=== PATIENT | female | born 1940 | race Caucasian/White ===

== ENCOUNTER → 2019-03-08 | Outpatient (CLI) | payer MEDICARE, OTHER ==
--- NOTE | 2019-03-08 14:09 | Diagnostic Imaging Report ---
INDICATION: Right knee pain. Three views of right knee show no fracture, dislocation or acute abnormalities. IMPRESSION: Negative right knee. Dictated by: Dictated on workstation # [id number]
== END ==
LOC: RAD FS 13:50
PROVIDERS: ATTEND Nurse Practitioner
DX: M17.11 Unilateral primary osteoarthritis, right knee (principal)
CPT/HCPCS: 73562

== ENCOUNTER 2019-08-23 06:50 | Day surgery (SDC) | payer MEDICARE, OTHER ==
[2019-08-23] VITALS (12 sets, daily range): BP systolic 0–170; BP diastolic 0–77
[~2019-08-23] VITALS: Ht 160 cm; Wt 63.7 kg
[~2019-08-23 06:50] MED LIST: BETA1TAB12 PO; VIT1CAPS46 PO
[2019-08-23] MEDS: LACTATED RINGERS 1,000 ML IV PRN ×2 (07:30→09:25)
[2019-08-23] MEDS ORDERED: BUP/EPI 0.25% 1:200,000 (MARCAINE) 10 ML VIAL IJ ONE (07:30)
[2019-08-23] MEDS ORDERED: ceFAZolin INJECTION 1,000 MG in WATER (STERILE) FOR INJECTION 10 ML IV ONE (08:00)
[2019-08-23] MEDS ORDERED: LIDOCAINE PF 2% 5 ML (XYLOCAINE) VIAL ONE (08:03)
[2019-08-23] MEDS ORDERED: ONDANSETRON 4 MG/2 ML (SDV) Z0FRAN ONE (08:03)
[2019-08-23] MEDS ORDERED: fentaNYL INJECTION 100 MCG/2 ML AMP ONE (08:03)
[2019-08-23] MEDS ORDERED: SEVOFLURANE (ULTANE) 15 ML INHAL SOLN ONE ×5 (08:03→10:06)
[2019-08-23] MEDS ORDERED: proPOfol 200 MG/20 ML (DIPRIVAN) VIAL IV ONE (08:03)
[2019-08-23] MEDS ORDERED: ROCURONIUM 10 MG/ML 5 ML SYRINGE IV ONE (08:03)
[2019-08-23] MEDS ORDERED: MIDAZOLAM 2 MG/2 ML (VERSED) VIAL IVP ONE (08:15)
--- NOTE | 2019-08-23 08:23 | Progress Note-Pre Operative ---
Pre-Operative Progress Note H&P Reviewed The H&P was reviewed, patient examined and no changes noted. Date Seen by Provider: Aug 23, 2019 Time Seen by Provider: 08:20 Date H&P Reviewed: Aug 23, 2019 Time H&P Reviewed: 08:15 Pre-Operative Diagnosis: Symptomatic Right inguinal hernia JASMIN VELOZ APRN Aug 23, 2019 08:23
[2019-08-23] MEDS ORDERED: HYDR-3812 PO (08:28)
[2019-08-23] MEDS ORDERED: ONDANSETRON 4 MG/2 ML (SDV) Z0FRAN IVP PRN ×2 (08:30→10:30)
[2019-08-23] MEDS ORDERED: morphine INJ 10 MG/ML 1ML (SYR OR VIAL) IVP PRN (08:30)
[2019-08-23] MEDS ORDERED: ACETAMINOPHEN 325 MG TABLET PO PRN (08:30)
[2019-08-23] MEDS ORDERED: HYDROcodone/APAP 5 MG/325 MG (LORTAB) TAB PO ONE (08:30)
--- NOTE | 2019-08-23 08:31 | Discharge Inst-Surgical ---
D/C Lap Instructions-KIDO Reconcile Patient Problems Problems Reviewed?: Yes New, Converted, or Re-Newed RX: RX on Chart Follow Up Appt in 2 weeks Activity as tolerated No driving for 24 hours No driving while on pain medications Incentive Spirometry use every 2 hours while awake Regular Diet Symptoms to Report: Fever over 101 degree F, Nausea/Vomiting Infection Signs and Symptoms to report: Increased redness, Foul odor of wound, Increased drainage Bathing instructions: May shower Operative Area Clean/Dry; Keep incision clean/dry If any problems/questions: Contact your physician or go to Emergency Room JASMIN VELOZ APRN Aug 23, 2019 08:31
[2019-08-23] MEDS ORDERED: GLYCOPYRROLATE 0.2 MG/ML (ROBINUL) 2 ML VIAL ONE (10:03)
[2019-08-23] MEDS ORDERED: NEOSTIGMINE 3 MG/3 ML VIAL ONE (10:03)
--- NOTE | 2019-08-23 10:09 | Progress Note-Post Operative ---
Post-Operative Progess Note Surgeon (s)/Marketing Assistant Manager (s) Surgeon VY FALCON MD Marketing Assistant Manager: vincent [employer] Pre-Operative Diagnosis Symptomatic Right inguinal hernia Post-Operative Diagnosis reducible right indirect ing hernia Procedure & Operative Findings Date of Procedure 08/23/19 Procedure Performed/Findings laparoscopic right inguinal hernia repair with mesh. Anesthesia Type get Estimated Blood Loss Estimated blood loss (mL): minimal Specimens/Packing Specimens Removed none VY FALCON MD Aug 23, 2019 10:09
[2019-08-23] MEDS ORDERED: MEPERIDINE (DEMEROL) INJ 50 MG/ML IVP ONE (10:30)
[2019-08-23] MEDS ORDERED: morphine INJ 10 MG/ML 1ML (SYR OR VIAL) IVP ONE (10:30)
[2019-08-23] MEDS ORDERED: PANTOPRAZOLE 40 MG (PROTONIX) VIAL ONE (12:55)
[2019-08-23] MEDS ORDERED: PANTOPRAZOLE 40 MG (PROTONIX) VIAL IV ONE (13:00)
--- NOTE | 2019-08-23 13:23 | Anesthesia-General Post-Op ---
General Patient Condition Mental Status/LOC: Same as Preop Cardiovascular: Satisfactory Nausea/Vomiting: Absent Respiratory: Satisfactory Pain: Controlled Complications: Absent Post Op Complications Complications None Follow Up Care/Instructions Patient Instructions None needed. Anesthesia/Patient Condition Patient Condition Patient is doing well, no complaints, stable vital signs, no apparent adverse anesthesia problems. No complications reported per nursing. MATTHEW HER CRNA Aug 23, 2019 13:23
[2019-08-23] MEDS ORDERED: ONDA4TAB11 PO (14:03)
--- NOTE | 2019-08-23 17:31 | OPERATIVE REPORT ---
DATE OF SERVICE: 08/23/2019 ATTENDING PRIMARY CARE PHYSICIAN: Dr. Megan Tucker. PREOPERATIVE DIAGNOSIS: Symptomatic reducible right inguinal hernia. POSTOPERATIVE DIAGNOSIS: Symptomatic reducible indirect right inguinal hernia. PROCEDURE: Laparoscopic right inguinal hernia repair with mesh. SURGEON: Vy Falcon MD TECHNOLOGY ASSISTANT: Jayme Kyle APRN ANESTHESIA: General endotracheal. ESTIMATED BLOOD LOSS: Minimal. FINDINGS: Symptomatic reducible indirect right inguinal hernia. DISPOSITION: The patient tolerated the procedure well. INDICATIONS: The patient is an 78-year-old female, who has had pain and discomfort in the right inguinal region for some time; however, she did notice a bulge recently. She states that over time, the bulge has grown larger in size. She does not report the same type of symptoms on the left side. She is otherwise tolerating a regular diet and having normal bowel movements. Upon examination, she was found to have a reducible right inguinal hernia; however, tender to palpation. She is otherwise very active at home. DESCRIPTION OF PROCEDURE: The patient was brought to the operating room, laid supine on the table. After adequate IV pain and sedative medications and general endotracheal intubation, the abdomen was prepped and draped in standard surgical fashion. A 0.5% Marcaine with epinephrine was used to anesthetize the overlying skin in the infraumbilical rim and a transverse skin incision made using a 15 blade. A sharp towel clamp was used to retract the abdominal wall anteriorly and a Veress needle was inserted with a low opening pressure of 0 mmHg and the abdomen was then insufflated to 15 mmHg pressure. The Veress needle was removed and a 10 mm XL trocar was placed followed by a 10 mm 45-degree angle laparoscope visualizing the peritoneal cavity. A 4-quadrant abdominal exploration was performed. There was a right indirect inguinal hernia identified with nothing within the hernia sac. There was no left inguinal hernia component. What was visualized of the omentum, small bowel, colon appeared normal. Under direct visualization, we then proceeded to place bilateral 5 mm ports under direct visualization after the skin and peritoneal lining were anesthetized using 0.5% Marcaine with epinephrine and transverse skin incision was made using a 15 blade. The patient was then placed in Trendelenburg position and an opening was then created into the peritoneal lining, first starting laterally towards the conjoined tendon and inguinal ligament. We then proceeded with medial dissection until we reached the conjoined tendon. We then proceeded with inferior dissection encompassing the entire hernia sac using the Sonicision as well as blunt dissection with visualization of good hemostasis. A medium size 3DMax polypropylene mesh was then placed through the 10 mm port and tacked to Ken's ligament medially and the conjoined tendon laterally. The peritoneal lining was then placed over the mesh and a few absorbable tacks were placed to hold this in place with visualization of good hemostasis. The 10 mm port site fascia and peritoneum were then closed under direct visualization using Tim-Clem device and 0 Vicryl suture. The abdomen was desufflated and remaining ports were removed. All skin incisions were closed using 4-0 Monocryl running subcuticular sutures. Wounds were then cleaned and covered with Dermabond. The patient tolerated the procedure well. We will start IV and oral pain medication as well as a clear liquid diet. Once she is tolerating clears, has good pain control with oral pain medications, ambulating well, we will discharge her home. She will be instructed to do no heavy lifting or exertion for the next two weeks. Job ID: [id number] DocumentID: [id number] Dictated Date: 08/23/2019 10:15:52 Farm Management Supervisor Date: 08/23/2019 17:30:33 Dictated By: VY FALCON MD
== END 2019-08-23 14:00 | disposition home or self-care (01) ==
LOC: SDC 06:50
PROVIDERS: ATTEND Surgery
DX: K40.90 Unilateral inguinal hernia, without obstruction or gangrene, not specified as recurrent (principal); E11.9 Type 2 diabetes mellitus without complications; Z80.3 Family history of malignant neoplasm of breast; Z83.3 Family history of diabetes mellitus; Z79.899 Other long term (current) drug therapy

== ENCOUNTER → 2019-12-18 | Outpatient (CLI) | payer MEDICARE, OTHER ==
[~2019-12-18] MED LIST changes: +HYDR-3812 PO; +ONDA4TAB11 PO
--- NOTE | 2019-12-18 14:40 | Diagnostic Imaging Report ---
PROCEDURE: MRI right joint lower extremity without contrast. TECHNIQUE: Multiplanar, multisequence non contrast-enhanced MRI of the right lower extremity was accomplished. INDICATION: Right knee pain. No known injury. COMPARISON: Radiographs from 03/08/2019. FINDINGS: There is bone marrow edema on the proximal tibia, medial more than lateral. There is also mild bone marrow edema in the medial femoral condyle. There is a large osteochondral lesion in the medial femoral condyle which measures approximately 1.4 cm mediolateral and 2.3 cm AP, with irregularity and mild depression of the articular surface. There is also articular surface irregularity of the medial femoral condyle. There is a small right knee joint effusion. There is a moderate Ying's cyst with adjacent edema and fluid. The articular cartilage in the patellofemoral compartment demonstrates moderate thinning at the inferior patella. The articular cartilage in the medial compartment is absent at the weightbearing aspect. The articular cartilage in the lateral compartment demonstrates mild thinning. The medial meniscus demonstrates complex tearing including posterior radial tear and horizontal tearing of the posterior horn and body. The lateral meniscus demonstrates a horizontal tear at the anterior horn. The anterior and posterior cruciate ligaments are intact. The medial collateral ligament is intact. The lateral collateral ligamentous complex is intact. The extensor mechanism is intact. The medial and lateral retinacula are intact. IMPRESSION: 1. Large osteochondral lesion at the medial tibia with irregularity and minimal depression of the articular surface. There is marked cartilage loss in the medial compartment. 2. Extensive complex tearing of the medial meniscus. Horizontal tear of the anterior lateral meniscus. 3. Small right knee joint effusion with moderate-sized leaking Ying's cyst. Dictated by: Dictated on workstation # [id number]
== END ==
LOC: RAD 10:12
PROVIDERS: ATTEND Nurse Practitioner
DX: M17.11 Unilateral primary osteoarthritis, right knee (principal); M23.231 Derangement of other medial meniscus due to old tear or injury, right knee; M25.461 Effusion, right knee; M71.21 Synovial cyst of popliteal space [Baker], right knee
CPT/HCPCS: 73721

== ENCOUNTER → 2019-12-20 | Outpatient (CLI) | payer MEDICARE, OTHER ==
--- NOTE | 2019-12-20 11:20 | Diagnostic Imaging Report ---
INDICATION: Osteochondral defect. COMPARISON: December 18, 2019. TECHNIQUE: Three radiographs of the right knee dated December 20, 2019. FINDINGS: No acute fracture or dislocation. Significant sclerosis is noted within the medial tibial plateau extending into the proximal tibial shaft. This is associated with underlying lucencies within the medial tibial plateau. Slight irregularity of the articular surface of the medial tibial plateau is also noted. Minimal medial joint space narrowing. The lateral compartment is well maintained. No significant osteophytosis. Tiny knee joint effusion. IMPRESSION: Extensive sclerosis within the medial tibial plateau with associated underlying subcortical cystic changes. This corresponds to recent MRI and likely relates to reactive changes from underlying osteochondral defect. Small knee joint effusion. Dictated by: Dictated on workstation # [id number]
== END ==
LOC: RAD FS 10:37
PROVIDERS: ATTEND Nurse Practitioner
DX: M21.961 Unspecified acquired deformity of right lower leg (principal); M89.8X8 Other specified disorders of bone, other site
CPT/HCPCS: 73562

== ENCOUNTER 2020-02-27 09:30 | Inpatient (IN) | payer MEDICARE, OTHER ==
[~2020-02-27] VITALS: Ht 160 cm; Wt 64.5 kg
[~2020-02-27 09:30] MED LIST changes: +ACHD5005 PO; -HYDR-3812 PO
[2020-04-02] MEDS ORDERED: OMEG10005 PO (10:25)
--- NOTE | 2020-04-02 11:00 | HISTORY AND PHYSICAL ---
DATE OF SERVICE: ADMISSION HISTORY AND PHYSICAL DATE OF ADMISSION: 04/09/2020. This will be for inpatient admission on 04/09/2020 for right total knee arthroplasty. The patient will require regular inpatient admission due to comorbidities, pain management, need for physical therapy and gait abnormalities. HISTORY OF PRESENT ILLNESS: The patient is an 79-year-old female with complaints of progressively worsening right knee pain over the last 18 months. She reports activity limitations because of the knee. She underwent an MRI as well as radiographs, which reveal severe medial compartment sclerosis with loss of chondral surfaces of the medial and patellofemoral compartments. Due to progressive symptoms and failure to improve with conservative measures, the patient has elected to proceed with surgical intervention. REVIEW OF SYSTEMS: No chest pain, no shortness of breath and no dysuria. PAST MEDICAL HISTORY: Back pain and diabetes. PAST SURGICAL HISTORY: Herniorrhaphy. FAMILY HISTORY: Noncontributory. PRIMARY CARE PROVIDER: Dr. Tucker. MEDICATIONS: Ibuprofen. ALLERGIES: No known drug allergies. SOCIAL HISTORY: The patient denies alcohol or tobacco use. PHYSICAL EXAMINATION: GENERAL: The patient is well developed, well-nourished, in no acute distress. HEENT: Normocephalic, atraumatic. Pupils are equal, round, reactive to light. Oropharynx is clear. NECK: Supple, no lymphadenopathy. LUNGS: Clear to auscultation bilaterally. HEART: Regular rate and rhythm. ABDOMEN: Soft, nontender and nondistended. EXTREMITIES: Right knee demonstrates varus alignment. She is tender along the medial joint line. She has pain medially with Radha's. There is a slight effusion. There is no erythema or warmth. Range of motion 0/2/120. No varus valgus laxity. Negative anterior and posterior drawer. IMPRESSION: Severe right medial and patellofemoral arthrosis of the knee. PLAN: Right total knee arthroplasty. The risks, benefits, options, ramifications and recovery have been discussed at length with the patient. She understands and wishes to proceed. Job ID: [id number] DocumentID: [id number] Dictated Date: 03/31/2020 10:51:23 Geriatric Assistant Date: 03/31/2020 11:28:51 Dictated By: LONNY MCLAIN MD
[2020-04-09] VITALS (13 sets, daily range): BP systolic 117–168; BP diastolic 47–92
--- OUTSIDE RECORDS SUMMARY | 2020-04-09 06:09 | XMS REPORT | Continuity of Care Document ---
Author Organization Unknown Address Unknown Phone Unavailable Allergies Active Description Code Type Severity Reaction Onset Reported/Identified Relationship to Patient Clinical Status Yes No Known Drug Allergies [id number] Drug Allergy Unknown N/A 08/20/2019 Medications There is no data. Problems Date Dx Coded Attending Type Code Diagnosis Diagnosed By 10/27/1547 RAYNE GRANADOS, LONNY Higgins Ot M17.11 UNILATERAL PRIMARY OSTEOARTHRITIS, RIGHT 10/27/1547 RAYNE GRANADOS, LONNY Higgins Ot R53.83 OTHER FATIGUE 10/27/1547 LONNY MCLAIN MD Ot R82.998 OTHER ABNORMAL FINDINGS IN URINE 10/27/1547 LONNY MCLAIN MD Ot Z01.810 ENCOUNTER FOR PREPROCEDURAL CARDIOVASCUL 10/27/1547 LONNY MCLAIN MD Ot Z01.811 ENCOUNTER FOR PREPROCEDURAL RESPIRATORY 10/27/1547 LONNY MCLAIN MD Ot Z01.812 ENCOUNTER FOR PREPROCEDURAL LABORATORY E 10/27/1547 LONNY MCLAIN MD Ot Z11.2 ENCOUNTER FOR SCREENING FOR OTHER BACTER 10/27/1547 LONNY MCLAIN MD Ot Z11.59 ENCOUNTER FOR SCREENING FOR OTHER VIRAL 03/29/2019 CHAPARRITA CAMARGO Ot M17.11 UNILATERAL PRIMARY OSTEOARTHRITIS, RIGHT 08/23/2019 VY FALCON MD Ot E11.9 TYPE 2 DIABETES MELLITUS WITHOUT COMPLIC 08/23/2019 VY FALCON MD Ot K40.90 UNIL INGUINAL HERNIA, W/O OBST OR GANGR, 08/23/2019 VY FALCON MD, Ot Z79.89 9 OTHER [facility] (CURRENT) DRUG THERAPY 08/23/2019 VY FALCON MD, Ot Z80.3 FAMILY HISTORY OF MALIGNANT NEOPLASM OF 08/23/2019 VY FALCON MD, Ot Z83.3 FAMILY HISTORY OF DIABETES MELLITUS 08/27/2019 VY FALCON MD Ot E11.9 TYPE 2 DIABETES MELLITUS WITHOUT COMPLIC 08/27/2019 VY FALCON MD, Ot K40.90 UNIL INGUINAL HERNIA, W/O OBST OR GANGR, 08/27/2019 VY FALCON MD, Ot Z79.89 9 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 08/27/2019 VY FALCON MD, Ot Z80.3 FAMILY HISTORY OF MALIGNANT NEOPLASM OF 08/27/2019 VY FALCON MD, Ot Z83.3 FAMILY HISTORY OF DIABETES MELLITUS 08/27/2019 VY FALCON MD, Ot E11.9 TYPE 2 DIABETES MELLITUS WITHOUT COMPLIC 08/27/2019 VY FALCON MD, Ot K40.90 UNIL INGUINAL HERNIA, W/O OBST OR GANGR, 08/27/2019 VY FALCON MD, Ot Z79.89 9 OTHER [facility] (CURRENT) DRUG THERAPY 08/27/2019 VY FALCON MD, Ot Z80.3 FAMILY HISTORY OF MALIGNANT NEOPLASM OF 08/27/2019 VY FALCON MD, Ot Z83.3 FAMILY HISTORY OF DIABETES MELLITUS 12/20/2019 CHAPARRITA CAMARGO Ot M17.11 UNILATERAL PRIMARY OSTEOARTHRITIS, RIGHT 12/20/2019 CHAPARRITA CAMARGO Ot M23.231 DERANG OF MEDIAL MENISCUS DUE TO OLD TEA 12/20/2019 CHAPARRITA CAMARGO Ot M25.461 EFFUSION, RIGHT KNEE 12/20/2019 CHAPARRITA CAMARGO Ot 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] 12/24/2019 CHAPARRITA CAMARGO Ot M21.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 OF RIGHT 12/24/2019 CHAPARRITA CAMARGO Ot M89.8X8 OTHER SPECIFIED DISORDERS OF BONE, OTHER 12/26/2019 CHAPARRITA CAMAGRO Ot M21.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 OF RIGHT 12/26/2019 CHAPARRITA CAMARGO Ot M89.8X8 OTHER SPECIFIED DISORDERS OF BONE, OTHER 01/15/2020 CHAPARRITA CAMARGO Ot M17.11 UNILATERAL PRIMARY OSTEOARTHRITIS, RIGHT 01/15/2020 CHAPARRITA CAMARGO Ot M23.231 DERANG OF MEDIAL MENISCUS DUE TO OLD TEA 01/15/2020 CHAPARRITA CAMARGO Ot M25.461 EFFUSION, RIGHT KNEE 01/15/2020 CHAPARRITA CAMARGO Ot 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 Results Test Result Range Methicillin resistant Staphylococcus aur eus (MRSA) screening culture - 08/20/19 13:40 Methicillin resistant Staphylococcus aureus (MRSA) scr eening culture NEG NRG Complete blood count (CBC) with automate d white blood cell (WBC) differential - 04/02/20 10:45 Blood leukocytes automated count (number/volume) 6.9 10*3/uL 4.3-11.0 Blood erythrocytes automated count (number/volume) 4.73 10*6/uL 4.35-5.85 Venous blood hemoglobin measurement (mass/volume) 13.7 g/dL 11.5-16.0 Blood hematocrit (volume fraction) 40 % 35-52 Automated erythrocyte mean corpuscular volume 84 [ foz_us] 80-99 Automated erythrocyte mean corpuscular h emoglobin (mass per erythrocyte) 29 pg 25-34 Automated erythrocyte mean corpuscular h emoglobin concentration measurement (mass/volume) 34 g/dL 32-36 Automated erythrocyte distribution width ratio 12. 7 % 10.0- 14.5 Automated blood platelet count (count/volume) 232 10*3/uL 130-400 Automated blood platelet mean volume measurement 9.0 [foz_us] 7.4-10.4 Automated blood neutrophils/100 leukocytes 67 % 42-75 Automated blood lymphocytes/100 leukocytes 22 % 12-44 Blood monocytes/100 leukocytes 6 % 0-12 Automated blood eosinophils/100 leukocytes 4 % 0-10 Automated blood basophils/100 leukocytes 0 % 0-10 Blood neutrophils automated count (number/volume) 4.6 10*3 1.8-7.8 Blood lymphocytes automated count (number/volume) 1.5 10*3 1.0-4.0 Blood monocytes automated count (number/volume) 0. 4 10*3 0.0-1.0 Automated eosinophil count 0.3 10*3/uL 0 .0-0.3 Automated blood basophil count (count/volume) 0.0 10*3/uL 0.0-0.1 Complete urinalysis with reflex to cultu re - 04/02/20 10:45 Urine color determination YELLOW NRG Urine clarity determination CLEAR NR G Urine pH measurement by test strip 6.0 5-9 Specific gravity of urine by test strip 1.025 1.016-1.022 Urine protein assay by test strip, semi-quantitative NEGATIVE NEGATIVE Urine glucose detection by automated test strip NE GATIVE NEGATIVE Erythrocytes detection in urine sediment by light micr oscopy NEGATIVE NEGATIVE Urine ketones detection by automated test strip NE GATIVE NEGATIVE Urine nitrite detection by test strip NEGATIVE NEGATIVE Urine total bilirubin detection by test strip NEGA TIVE NEGATIVE Urine urobilinogen measurement by automated test strip (mass/volume) 0.2 mg/dL < = 1.0 Urine leukocyte esterase detection by dipstick 1+ NEGATIVE Automated urine sediment erythrocyte cou nt by microscopy (number/high power field) [HPF] NRG Automated urine sediment leukocyte count by microscopy (number/high power field) [HPF] NRG Bacteria detection in urine sediment by light microsco py NEGATIVE NRG Squamous epithelial cells detection in u rine sediment by light microscopy 0-2 NRG Crystals detection in urine sediment by light microsco py NONE NRG Casts detection in urine sediment by light microscopy NONE NRG Mucus detection in urine sediment by light microscopy NEGATIVE NRG Complete urinalysis with reflex to culture YES NRG Comprehensive metabolic panel - 04/02/20 10:45 Serum or plasma sodium measurement (moles/volume) 142 mmol/L 135-145 Serum or plasma potassium measurement (moles/volume) 3.9 mmol/L 3.6-5.0 Serum or plasma chloride measurement (moles/volume) 107 mmol/L 98-107 Carbon dioxide 26 mmol/L 21-32 Serum or plasma anion gap determination (moles/volume) 9 mmol/L 5-14 Serum or plasma urea nitrogen measurement (mass/volume ) 20 mg/dL 7-18 Serum or plasma creatinine measurement (mass/volume) 0.76 mg/dL 0.60-1.30 Serum or plasma urea nitrogen/creatinine mass ratio 26 NRG Serum or plasma creatinine measurement w ith calculation of estimated glomerular filtration rate > NRG Serum or plasma glucose measurement (mass/volume) 133 mg/dL 70-105 Serum or plasma calcium measurement (mass/volume) 8.9 mg/dL 8.5-10.1 Serum or plasma total bilirubin measurement (mass/volu me) 0.5 mg/dL 0.1-1.0 Serum or plasma alkaline phosphatase melecio surement (enzymatic activity/volume) 71 U/L 40-136 Serum or plasma aspartate aminotransfera se measurement (enzymatic activity/volume) 20 U/L 5-34 Serum or plasma alanine aminotransferase measurement (enzymatic activity/volume) 16 U/L 0-55 Serum or plasma protein measurement (mass/volume) 6.9 g/dL 6.4-8.2 Serum or plasma albumin measurement (mass/volume) 4.2 g/dL 3.2-4.5 CALCIUM CORRECTED 8.7 mg/dL 8.5-10.1 PT panel in platelet poor plasma by coag ulation assay - 04/02/20 10:45 Prothrombin time (PT) in platelet poor plasma by coagu lation assay 12.7 s 12.2-14.7 INR in platelet poor plasma or blood by coagulation as say 0.9 0.8-1.4 Erythrocyte sedimentation rate by alan gren method - 04/02/20 10:45 Erythrocyte sedimentation rate by westergren method 9 mm 0- 30 Blood type T Indirect antibody screen pa chris - 04/02/20 10:45 ABO+Rh group AP NRG Blood group antibody screen NEGATIVE NR G Bacterial urine culture - 04/02/20 10:45 Bacterial urine culture 3 OR MORE NRG COLONY COUNT 20,000 CFU/ML NRG SUSCEPTIBILITY GRAM POSITIVE ISOLATES; SUGGESTING NRG MRSA SCREEN PROBABLE COLLECTION CONTAMINATION WITH NRG RAPID ID SKIN VASILIY. NO SUSCEPTIBILITY PERFORMED. NRG Methicillin resistant Staphylococcus aur eus (MRSA) screening culture - 04/02/20 10:45 Methicillin resistant Staphylococcus aureus (MRSA) scr eening culture NEG NRG Coronavirus SARS-CoV-2 SO 2018 - 0 13:47 Coronavirus Ab [Units/volume] in Serum Negative Negative Encounters ACCT No. Visit Date/Time Discharge Status Pt. Type Provider Facility Loc./Unit Complaint [id number] 04/04/2020 07:08:00 020 15:48:00 DIS Outpatient RAYNE GRANADOS, LONNY Higgins [facility] PREOP OSTEOARTHRITIS RIGHT K NEE [id number] 12/20/2019 10:37:00 020 23:59:59 CLS Outpatient CHAPARRITA CAMARGO [facility] RAD FS M95.8 [id number] 12/18/2019 10:12:00 23:59:59 CLS Outpatient CHAPARRITA CAMARGO [facility] RAD OSTEOARTHRITIS, RT KNE E [id number] 08/23/2019 06:50:00 14:00:00 DIS Outpatient VY FALCON MD [facility] RIGHT INGUINAL HERNIA [id number] 08/20/2019 12:42:00 15:30:00 DIS Outpatient VY FALCON MD [facility] PREOP RIGHT INGUINAL HERNIA [id number] 03/08/2019 13:50:00 23:59:59 CLS Outpatient CHAPARRITA CAMARGO [facility] RAD FS OSTEOARTHRITIS RIGHT K NEE [id number] 04/09/2020 08:00:00 P DIETER MCLAIN MD, LONNY Higgins RIGHT KNEE OSTEOARTHRITIS
[2020-04-09] MEDS ORDERED: LACTATED RINGERS 1,000 ML IV PRN (06:14)
[2020-04-09] MEDS ORDERED: CEFUROXIME INJECTION 1,500 MG in WATER (STERILE) FOR INJECTION 15 ML IV ONE (06:15)
[2020-04-09] MEDS ORDERED: FAMOTIDINE 20MG/2ML IV (PEPCID) ONE (06:29)
[2020-04-09] MEDS ORDERED: ONDANSETRON 4 MG/2 ML (SDV) Z0FRAN ONE ×2 (06:29→08:29)
[2020-04-09] MEDS ORDERED: ONDANSETRON 4 MG/2 ML (SDV) Z0FRAN IV ONE (06:30)
[2020-04-09] MEDS ORDERED: FAMOTIDINE 20MG/2ML IV (PEPCID) IV ONE (06:30)
[2020-04-09] MEDS ORDERED: fentaNYL INJECTION 100 MCG/2 ML AMP ONE (06:47)
[2020-04-09] MEDS ORDERED: MIDAZOLAM 2 MG/2 ML (VERSED) VIAL ONE (06:49)
--- NOTE | 2020-04-09 07:24 | Progress Note-Pre Operative ---
Pre-Operative Progress Note H&P Reviewed The H&P was reviewed, patient examined and no changes noted. Date Seen by Provider: April 09, 2020 Time Seen by Provider: 07:15 Date H&P Reviewed: April 09, 2020 Time H&P Reviewed: 07:11 Pre-Operative Diagnosis: right knee primary osteoarthritis LONNY MCLAIN MD April 09, 2020 07:24
--- NOTE | 2020-04-09 07:25 | Progress Note-Post Operative ---
Post-Operative Progess Note Surgeon (s)/Front End Drupal Developer (s) Surgeon LONNY MCLAIN MD Front End Drupal Developer: Keegan Alcala Pre-Operative Diagnosis right knee primary osteoarthritis Post-Operative Diagnosis right knee primary osteoarthritis Procedure & Operative Findings Date of Procedure 04/09/20 Procedure Performed/Findings right total knee arthroplasty Anesthesia Type GETA Estimated Blood Loss Estimated blood loss (mL): minimal Specimens/Packing Specimens Removed none Packing: none LONNY MCLAIN MD April 09, 2020 07:25
[2020-04-09] MEDS ORDERED: OXYC1TAB87 PO (07:26)
--- NOTE | 2020-04-09 07:28 | D/C HH Face to Face Order ---
D/C Face to Face Orders Reconcile Patient Problems Problems Reviewed?: Yes Instructions for Patient Via [facility], Patient Instructions/FollowUp: three weeks Physician to follow Patient: three weeks Discharge Diet for Home: Regular Diet Patient Data-Allergies,Ht & Wt Patient Allergies: Coded Allergies: No Known Drug Allergies (Unverified , 08/20/19) Home Health Need/Face to Face Date of Face to Face: April 09, 2020 Clinical Findings: Instability, Muscle weakness, Pain with ambulation, Unsteady gait I have seen Pt qoyr-hx-xqqf: Yes Discharged To: Home Diagnosis/Conditions: right total knee arthroplasty Patient is Homebound due to: Esteban fall risk due to instabilty, Muscle weakness, Pain w/ambulation Homebound Status Due to the above stated illness, injury or surgical procedure (medical condition or diagnosis) and associated clinical findings, the patient is homebound because of his/her inability to leave home except with aid of a supportive device and/or person AND leaving the home requires a considerable and taxing effort or is medically contraindicated. Pt req the following assistanc: Walker Home Health Nursing Orders Home Health Services Order: Physical Therapy-Evaluate & Treat DC right knee alena and apply steri strips 04/23/20 Home Health Infusion Therapy Line Start Date: April 09, 2020 Therapy Orders Therapy Orders: Physical Therapy, PT to assess for OT Therapy Specific Orders: Eval assistive deivces, Teach enviro modifications/safety, Gait training, Increase strength/endurance, Provider maintenance therapy, Restore ROM Certify Stmt I certify that this patient is under my care and that I, a nurse practitioner or a physician; a insurance account assistant working with me, had a face to face encounter that - meets the physician face to face encounter requirements with this patient as dated. LONNY MCLAIN MD April 09, 2020 07:28
[2020-04-09] MEDS ORDERED: oxyCODONE/APAP 5/325MG (PERCOCET 5) TABLET PO PRN (07:30)
[2020-04-09] MEDS ORDERED: ACETAMINOPHEN 325 MG TABLET PO PRN ×2 (07:30→13:30)
[2020-04-09] MEDS ORDERED: diphenhydrAMINE 50 MG/ML INJ (BENADRYL) IVP PRN (07:30)
[2020-04-09] MEDS ORDERED: morphine PCA 100 MG/100 ML BAG IV PRN (07:30)
[2020-04-09] MEDS ORDERED: INTRA-ARTICULAR IU ONE ×5 (07:30)
[2020-04-09] MEDS ORDERED: ONDANSETRON 4 MG/2 ML (SDV) Z0FRAN IVP PRN ×3 (07:30→13:30)
[2020-04-09] MEDS ORDERED: TRANEXAMIC ACID 100 MG/ML 10 ML INJECTION IV ONE (07:52)
[2020-04-09] MEDS ORDERED: SUCCINYLCHOLINE INJ 100 MG/5 ML SYR ONE (07:52)
[2020-04-09] MEDS ORDERED: SEVOFLURANE (ULTANE) 15 ML INHAL SOLN ONE (07:52)
[2020-04-09] MEDS ORDERED: ROCURONIUM 10 MG/ML 5 ML SYRINGE IV ONE (07:52)
[2020-04-09] MEDS ORDERED: proPOfol 200 MG/20 ML (DIPRIVAN) VIAL IV ONE (07:52)
[2020-04-09] MEDS ORDERED: LIDOCAINE PF 2% 5 ML (XYLOCAINE) VIAL ONE (07:52)
[2020-04-09] MEDS ORDERED: ROPIVACAINE 5MG/ML 30ML VIAL ONE (07:52)
[2020-04-09] MEDS ORDERED: morphine INJ 10 MG/ML 1ML (SYR OR VIAL) IVP ONE (09:15)
[2020-04-09] MEDS ORDERED: fentaNYL INJECTION 100 MCG/2 ML AMP IVP ONE (09:15)
[2020-04-09] MEDS ORDERED: MEPERIDINE (DEMEROL) INJ 50 MG/ML IVP ONE (09:15)
--- NOTE | 2020-04-09 09:34 | Diagnostic Imaging Report ---
INDICATION: Postop. Right knee. FINDINGS: Total arthroplasty of the right knee. Components are all in good alignment. No evidence of cortical bone fractures. Skin alena are present. IMPRESSION: Satisfactory appearing postoperative total arthroplasty of the right knee. Dictated by: Dictated on workstation # [id number]
--- NOTE | 2020-04-09 11:16 | Progress Note ---
Standard Progress Note Progress Notes/Assess & Plan Date Seen by a Provider: April 09, 2020 Time Seen by a Provider: 09:20 Progress/Assessment & Plan post op check no complaints radiographs--HW well positioned without fracture RLE--2 plus DP pulse with brisk cap refill. Intact DF and PF of toes and ankle with intact sensation to light touch throughout s/p RTKA mobilize as able LONNY MCLAIN MD April 09, 2020 11:16
[2020-04-09] MEDS: NS IV 1000 ML 1,000 ML IV SCH (11:46)
[2020-04-09] MEDS: SENNA W/DOCUSATE (SENOKOT S) TABLET PO SCH ×2 (11:46→20:30)
--- NOTE | 2020-04-09 11:48 | Physical Therapy Evaluation ---
PT Evaluation-General Medical Diagnosis Admission Date April 09, 2020 at 06:04 Medical Diagnosis: (R) TKA Onset Date: April 09, 2020 Therapy Diagnosis Therapy Diagnosis: difficulty walking Precautions Precautions/Isolations: Fall Prevention, Standard Precautions Weight Bear Status Weight Bearing/Tolerated Full Weight Bearing Referral Physician: Tessie Reason for Referral: Evaluation/Treatment Social History Home: Single Level Current Living Status: Alone PT Steps Into Home: 0 PT Steps Inside Home: 0 Prior Prior Level of Function SCALE: Activities may be completed with or without assistive devices. 8-Iosuxnbwkx-azwqlga completes the activity by him/herself with no assistance from a helper. 5-Set-up or Clean-up Assistance-helper sets up or cleans up; patient completes activity. [place] assists only prior to or following the activity. 4-Supervision or Touching Assistance-helper provides verbal cues and/or touching/steadying and/or contact guard assistance as patient completes activity. Assistance may be provided throughout the activity or intermittently. 3-Partial/Moderate Assistance-helper does LESS THAN HALF the effort. [place] lift s, holds or supports trunk or limbs, but provides less than half the effort. 2-Substantial/Maximal Assistance-helper does MORE THAN HALF the effort. [place] lifts or holds trunk or limbs and provides more than half the effort. 2-Dlsozktii-huqfoz does ALL the effort. Patient does none of the effort to complete the activity. Or, the assistance of 2 or more helpers is required for the patient to complete the activity. If activity was not attempted, code reason: 7-Patient Refused. 9-Not Applicable-not attempted and the patient did not perform the activity before the current illness, exacerbation or injury. 10-Not Attempted due to Environmental Limitations-(lack of equipment, weather restraints, etc.). 88-Not Attempted due to Medical Conditions or Safety Concerns. Bed Mobility: 6 Transfers (B,C,W/C): 6 Gait: 6 Stairs: 6 Indoor Mobility (Ambulation): Independent Stairs: Independent Prior Devices Use: None PT Evaluation-Current Subjective States that she is feeling okay. Pain Numeric Pain Scale: 0-No Pain Objective Patient Orientation: Person, Place, Time, Situation Attachments: Saline Lock ROM/Strength ROM Lower Extremities 0 - 90 degrees ROM in (R) knee Integumentary/Posture Bowel Incontinence: No Bladder Incontinence: No Transfers Roll Left to Right (QC): 5 Sit to Lying (QC): 5 Lying to Sitting/Side of Bed(Q: 5 Sit to Stand (QC): 5 Chair/Esd-af-Xfbqe Xfer(QC): 4 Toilet Transfer (QC): 4 Car Transfer (QC): 88 Gait Does the Patient Walk?: Yes Mode of Locomotion: Walk Anticipated Mode of Locomotion: Walk Walk 10 feet (QC): 88 Walk 50 ft with 2 Turns(QC): 88 Walk 150 ft (QC): 88 Walking 10ft/uneven surface-QC: 88 Distance: 1 Gait Assistive Device: FWW Comments/Gait Description Patient's right LE had instability with weightbearing. Stairs #of Steps: 88 1 Step (curb) (QC): 88 4 Steps (QC): 88 12 Steps (QC): 88 Balance Sitting Static: Good Sitting Dynamic: Fair Assessment/Needs 79 yo female s/p (R) TKA. The patient has decreased ROM, decreased strength, ADL limitations and gait deviations which show a need for skilled therapy. Rehab Potential: Good PT Short Term Goals Short Term Goals Time Frame: April 12, 2020 Roll Left & Right: 6 Sit to lyin Lying to sitting on side of be: 6 Sit to stand: 6 Chair/nnu-dl-ahgpf transfer: 6 Toilet transfer: 6 Car transfer: 6 Walk 10 feet: 5 Walk 50 feet with two turns: 5 Walk 150 feet: 5 1 step (curb): 5 Picking up objects: 88 PT Care Home Goals Care Home Goals PT Care Home Goals Time Frame: April 16, 2020 Roll Left & Right (QC): 6 Sit to Lying (QC): 6 Lying-Sitting on Side/Bed(QC): 6 Sit to Stand (QC): 6 Chair/Uln-dv-Harul Xfer(QC): 6 Toilet Transfer (QC): 6 Car Transfer (QC): 6 Does the Patient Walk: Yes Walk 10 feet (QC): 6 Walk 50ft with 2 Turns (QC): 6 Walk 150 ft (QC): 6 1 Step (curb) (QC): 6 4 Steps (QC): 6 PT Plan Problem List Problem List: Activity Tolerance, Functional Strength, Safety, Balance, Gait, Transfer, Bed Mobility, ROM Treatment/Plan Treatment Plan: Continue Plan of Care Treatment Plan: Bed Mobility, Functional Activity Tequila, Functional Strength, Gait, Safety, Therapeutic Exercise, Transfers Treatment Duration: April 16, 2020 Frequency: 11 times per week Estimated Hrs Per Day: 1 hour per day Patient and/or Family Agrees t: Yes Safety Risks/Education Patient Education: Gait Training, Transfer Techniques Time/GCodes Time In: 1120 Time Out: 1145 Total Billed Treatment Time: 25 Total Billed Treatment 1, KARYNA Guzman x 25' ANKIT RIVERA PT April 09, 2020 11:48
--- NOTE | 2020-04-09 13:15 | OPERATIVE REPORT ---
DATE OF SERVICE: 04/09/2020 PREOPERATIVE DIAGNOSIS: Right knee primary osteoarthritis. POSTOPERATIVE DIAGNOSIS: Right knee primary osteoarthritis. PROCEDURE: Right total knee arthroplasty. SURGEON: Dawood Mclain MD ASSOCIATE PROFESSOR OF SURGERY: Keegan Alcala, who assisted throughout the procedure and closed the incision. ANESTHESIA: General endotracheal by Keegan Esteves CRNA. TOURNIQUET TIME: Approximately 50 minutes at 300 mmHg. ESTIMATED BLOOD LOSS: Minimal. DRAINS: None. COMPLICATIONS: None. POSTOPERATIVE PLAN: Routine protocol. MATERIALS: Microport cemented size 4 femur, cemented size 4 tibia with 10 mm insert and cemented size 29 patella. STATEMENT OF MEDICAL NECESSITY: The patient is an 79-year-old female with longstanding progressive right knee pain. She has undergone treatment with injections, anti-inflammatories and rest without relief. Due to functional impairment and failure to improve with conservative measures, the patient elected to proceed with surgical intervention. Radiographs revealed severe medial and patellofemoral arthrosis. DESCRIPTION OF PROCEDURE: After risks and benefits of procedure were discussed and questions were answered, an informed consent was signed and placed on the chart, the operative site was confirmed in the preoperative holding area initialed by the surgeon. The patient was then transferred to the operating room and after adequate levels of general endotracheal anesthetic were obtained, a timeout was called, confirming the operative site. Right lower extremity was prepped and draped in the usual sterile fashion. With the leg elevated and the knee flexed, the tourniquet inflated to 300 mmHg and a midline incision was made. The underlying soft tissues were carefully dissected. Hemostasis was obtained with cautery. The medial parapatellar arthrotomy was performed leaving 1 cm cuff on the patella for later reattachment. A portion of the fat pad was resected. The ACL was resected. Intramedullary guide was passed into the distal femur and the distal cut was made. The femur was sized to a size 4. The 4 cutting block was placed parallel to the epicondylar axis and the cuts were made from posterior to anterior. A careful subperiosteal release was performed in the posterior distal femur, being careful to stay on the bony surface with curved osteotome. Intramedullary guide was then passed into the tibia. The cutting block was placed. The drop thomas transected the intermalleolar axis and the cut was made. The four baseplate was positioned and the drop thomas transected the intermalleolar axis. This was prepared with a drill punch and keel. The patella was then prepared by resecting 10 mm off the undersurface. Peg guide was placed and peg holes were drilled. The trials were inserted with 10 mm insert. Full extension was easily obtained degrees of flexion with gravity was easily obtained. The patella tracked well. There was no anterior/posterior or medial/lateral laxity in flexion or extension. Trials were removed. The joint was irrigated with pulse lavage. Periarticular block was placed in the posterior capsule, medial and lateral retinaculum extensor mechanism and subcutaneous tissues. The joint was further irrigated and the arthrotomy was closed with #2 Tevdek in ykakhy-pq-eteyp interrupted fashion. Knee was flexed. Patella tracked well. There was no undue tension at the repair site. The wound was further irrigated using a total of 6 liters throughout the procedure. A 0 Vicryl was used for deep subcutaneous tissue, 2-0 Vicryl for the superficial subcutaneous tissue and alena were used on the skin. There is no varus valgus laxity. Negative anterior and posterior aircraft loadmaster superintendent flexion and extension, 125 degrees of flexion with gravity was noted and full extension was easily obtained. Soft dressing was applied. Tourniquet was deflated. The patient was transferred to recovery room awake and in stable condition. Job ID: [id number] DocumentID: [id number] Dictated Date: 04/09/2020 09:04:59 Mobile Lounge Driver Date: 04/09/2020 13:14:56 Dictated By: DAWOOD MCLAIN MD
[2020-04-09] MEDS ORDERED: ONDANSETRON 4 MG/5 ML ORAL SOLN (ZOFRAN) 5 ML PO PRN (13:30)
[2020-04-09] MEDS ORDERED: polyethylene glycoL POWDER 17 GM (MIRALAX) PACK PO PRN (13:30)
[2020-04-09] MEDS ORDERED: MELATONIN 3 MG TABLET PO PRN (13:30)
--- NOTE | 2020-04-09 14:26 | Consultation - Hospitalist ---
HPI History of Present Illness: HPI/Chief Complaint Irene Melendez is an 79-year-old female with past medical history of diet-controlled diabetes and osteoarthritis who presented for a scheduled knee surgery. She un derwent a right knee replacement with Dr. Kurtz due to right knee osteoarthritis today. She is doing well postoperatively. Her only complaint is nausea. She has not vomited. She denies any fevers or chills. She denies any chest pain or shortness of breath. She denies any abdominal pain. She has a history of diabetes but does not take any medications for this. She says that she has not on any daily medications at home. Source: patient Exam Limitations: no limitations Date Seen 04/09/20 Attending Physician Dawood Kurtz MD PCP Megan Tucker MD Referring Physician Date of Admission April 09, 2020 at 06:04 Home Medications & Allergies Home Medications Reviewed patient Home Medication Reconciliation performed by pharmacy medication reconciliations donor center technician and/or nursing. Patients Allergies have been reviewed. Allergies Allergies Coded Allergies No Known Drug Allergies (Unverified08/20/19) Past Ihaowvq-Rkfjyg-Bqqljd Hx Past Med/Social Hx: Reviewed Nursing Past Med/Soc Hx Patient Social History Alcohol Use: Denies Use Recreational Drug Use: No Smoking Status: Never a Smoker 2nd Hand Smoke Exposure: No Physical Abuse Screen: No Sexual Abuse: No Recent Foreign Travel: No Contact w/other who traveled: No Recent Hopitalizations: No Seasonal Allergies Seasonal Allergies: No Past Medical History Surgeries: Eye Surgery Sexually Transmitted Disease: No HIV/AIDS: No HEENT: Cataract Loss of Vision: Denies Hearing Impairment: Denies History of Blood Disorders: No Adverse Reaction to Blood Butt: No (N/A) Family History Arthritis G8 BROTHER G8 SISTER Diabetes mellitus G8 BROTHER Review of Systems Constitutional: no symptoms reported EENTM: no symptoms reported Respiratory: no symptoms reported Cardiovascular: no symptoms reported Gastrointestinal: nausea Genitourinary: no symptoms reported Musculoskeletal: no symptoms reported Skin: no symptoms reported Psychiatric/Neurological: No Symptoms Reported Physical Exam Physical Exam Vital Signs Vital Signs - First Documented 04/09/20 06:30 Temp 36.1 Pulse 73 Resp 18 B/P (MAP) 142/92 Pulse Ox 96 O2 Delivery Room Air Capillary Refill : Less Than 3 SecondsLess Than 3 Seconds Height, Weight, BMI Height: '" Weight: lbs. oz. kg; 25.19 BMI Method: General Appearance: No Apparent Distress, WD/WN Neck: Normal Inspection Respiratory: No Accessory Muscle Use, No Respiratory Distress Cardiovascular: Regular Rate, Rhythm, No Edema Gastrointestinal: No Distended Extremity: Normal Inspection, Other (Knee immobilizer on right knee) Neurologic/Psychiatric: Alert, Oriented x3, Normal Mood/Affect Skin: Normal Color, Warm/Dry Results Results/Procedures Labs Patient resulted labs reviewed. Imaging: Reviewed Imaging Report Assessment/Plan Assessment and Plan Assess & Plan/Chief Complaint Right knee osteoarthritis Status post total knee arthroplasty Underwent right TKA with Dr. Kurtz 04/09 pain regimen ordered Bowel regimen ordered Incentive spirometer PT/OT Type II diabetes mellitus Sliding scale insulin DVT prophylaxis: Lovenox Diagnosis/Problems Diagnosis/Problems (1) Osteoarthritis of right knee Status: Chronic Qualifiers: Osteoarthritis type: primary Qualified Codes: M17.11 - Unilateral primary osteoarthritis, right knee (2) T2DM (type 2 diabetes mellitus) Status: Chronic Qualifiers: Diabetes mellitus assisted insulin use: without assisted use Diabetes mellitus complication status: without complication Qualified Codes: E11.9 - Type 2 diabetes mellitus without complications [address]ON [address]RE[address] MD April 09, 2020 14:26
[2020-04-09] MEDS ORDERED: PROMETHAZINE INJ 25 MG/ML (PHENERGAN) AMP IVP PRN (14:45)
[2020-04-09] MEDS: CEFUROXIME INJECTION 750 MG in WATER (STERILE) FOR INJECTION 10 ML IV SCH (15:04)
[2020-04-09] MEDS: inSUlin ASPART (NovoLOG) 1 UNIT/0.01 ML (CHARGE PER UNIT) SC SCH ×2 (16:01→21:15)
[2020-04-09] MEDS: DOCUSATE SODIUM 100 MG (COLACE) CAP PO SCH (20:30)
[2020-04-10] MEDS: NS IV 1000 ML 1,000 ML IV SCH ×2 (00:12→08:14)
[2020-04-10 00:26] VITALS: BP 116/79
[2020-04-10 04:00] VITALS: BP 117/57
[2020-04-10] MEDS ORDERED: WATER (STERILE) FOR INJECTION 10 ML ONE (04:00)
[2020-04-10] MEDS ORDERED: CEFUROXIME 750 MG (ZINACEF) VIAL ONE (04:00)
[2020-04-10] MEDS: CEFUROXIME INJECTION 750 MG in WATER (STERILE) FOR INJECTION 10 ML IV SCH (04:14)
[2020-04-10] MEDS: inSUlin ASPART (NovoLOG) 1 UNIT/0.01 ML (CHARGE PER UNIT) SC SCH ×2 (05:58→11:04)
[2020-04-10 06:19] LABS: HEMOGLOBIN 10.2 G/DL (11.5-16.0)
[2020-04-10 06:51] LABS: BUN/CREATININE RATIO 16; CALCIUM 7.7 MG/DL (8.5-10.1); CARBON DIOXIDE 25 MMOL/L (21-32); CHLORIDE 107 MMOL/L (98-107); CREATININE SERUM 0.77 MG/DL (0.60-1.30); GFR ESTIMATED > 60; GLUCOSE 138 MG/DL (70-105); POTASSIUM 3.9 MMOL/L (3.6-5.0); SODIUM 140 MMOL/L (135-145)
[2020-04-10] MEDS ORDERED: MULTIVIT W/MINERALS TAB (THERAGRAN M) PO SCH (07:00)
[2020-04-10] MEDS ORDERED: ENOXAPARIN 30 MG/0.3 ML (LOVENOX) SYR SC SCH (07:30)
--- NOTE | 2020-04-10 07:59 | Progress Note ---
Standard Progress Note Progress Notes/Assess & Plan Date Seen by a Provider: April 10, 2020 Time Seen by a Provider: 07:58 Progress/Assessment & Plan post op check no complaints radiographs--HW well positioned without fracture RLE--2 plus DP pulse with brisk cap refill. Intact DF and PF of toes and ankle with intact sensation to light touch throughout s/p RTKA mobilize as able Final Diagnosis no complaints Vital Signs Date Time Temp Pulse Resp B/P (MAP) Pulse Ox O2 Delivery O2 Flow Rate FiO2 04/10/20 04:00 37.6 79 18 117/57 (77) 96 Nasal Cannula 2.00 04/10/20 00:26 37.0 94 18 116/79 (91) 95 Nasal Cannula 2.00 04/09/20 20:30 94 Room Air 04/09/20 20:00 36.8 86 16 152/75 (100) 92 Room Air 04/09/20 15:30 36.7 66 18 147/75 (99) 96 Room Air 04/09/20 14:24 35.8 18 04/09/20 13:49 18 04/09/20 12:00 35.8 65 16 168/74 (105) 98 Room Air 04/09/20 11:12 92 Room Air 3.00 04/09/20 11:00 35.6 80 18 146/71 (96) 92 Room Air 04/09/20 10:38 [id number] 73 16 134/67 92 3.00 04/09/20 10:00 36.2 16 134/67 (89) 92 Room Air 04/09/20 10:00 Room Air 04/09/20 09:50 16 134/67 (89) 92 Room Air 04/09/20 09:45 Room Air 04/09/20 09:40 16 131/66 (87) 94 Room Air 04/09/20 09:30 OxyMask 3 04/09/20 09:30 12 120/60 (80) 98 OxyMask 3 04/09/20 09:20 14 128/60 (82) 98 OxyMask 5 04/09/20 09:15 OxyMask 8 04/09/20 09:10 16 117/54 (75) 97 OxyMask 8 04/09/20 09:00 36.3 16 117/47 (70) 98 OxyMask 8 04/09/20 09:00 OxyMask 8 I & O 04/10/20 07:00 Intake Total 830 ml Balance 830 ml Laboratory Tests Test 04/09/20 09:05 04/09/20 11:00 04/09/20 15:45 04/09/20 20:49 Range/Units Glucometer 150 H 178 H 134 H 188 H 70-110 MG/DL Test 04/10/20 05:37 04/10/20 05:40 Range/Units Glucometer 148 H 70-110 MG/DL Hemoglobin 10.2 L 11.5-16.0 G/DL Hematocrit 32 L 35-52 % Sodium Level 140 135-145 MMOL/L Potassium Level 3.9 3.6-5.0 MMOL/L Chloride Level 107 98-107 MMOL/L Carbon Dioxide Level 25 21-32 MMOL/L Anion Gap 8 5-14 MMOL/L Blood Urea Nitrogen 12 7-18 MG/DL Creatinine 0.77 0.60-1.30 MG/DL Estimat Glomerular Filtration Rate > 60 BUN/Creatinine Ratio 16 Glucose Level 138 H 70-105 MG/DL Calcium Level 7.7 L 8.5-10.1 MG/DL RLE--dressing intact. NVI distally. No calf tenderness s/p RTKA doing well PT/OT LONNY MCLAIN MD April 10, 2020 07:59
[2020-04-10 08:00] VITALS: BP 143/61
[2020-04-10] MEDS ORDERED: ASPIRIN E.C. 81 MG (ECOTRIN) TAB PO SCH (08:00)
[2020-04-10] MEDS: SENNA W/DOCUSATE (SENOKOT S) TABLET PO SCH (08:14)
[2020-04-10] MEDS: DOCUSATE SODIUM 100 MG (COLACE) CAP PO SCH (08:14)
--- NOTE | 2020-04-10 11:07 | Physical Therapy Daily Note ---
PT Daily Note-Current Subjective Pt. in bed, agrees to therapy. States her knee "doesn't hurt until I move it." No objective pain rating given. Mental Status Patient Orientation: Person, Place, Time, Situation Attachments: Polar Pack, IV Transfers SCALE: Activities may be completed with or without assistive devices. 0-Qdfxanzkex-sjoblir completes the activity by him/herself with no assistance from a helper. 5-Set-up or Clean-up Assistance-helper sets up or cleans up; patient completes activity. [place] assists only prior to or following the activity. 4-Supervision or Touching Assistance-helper provides verbal cues and/or touching/steadying and/or contact guard assistance as patient completes activity. Assistance may be provided throughout the activity or intermittently. 3-Partial/Moderate Assistance-helper does LESS THAN HALF the effort. [place] lifts, holds or supports trunk or limbs, but provides less than half the effort. 2-Substantial/Maximal Assistance-helper does MORE THAN HALF the effort. [place] lifts or holds trunk or limbs and provides more than half the effort. 1-Zhsowjzee-aivrjz does ALL the effort. Patient does none of the effort to complete the activity. Or, the assistance of 2 or more helpers is required for the patient to complete the activity. If activity was not attempted, code reason: 7-Patient Refused. 9-Not Applicable-not attempted and the patient did not perform the activity before the current illness, exacerbation or injury. 10-Not Attempted due to Environmental Limitations-(lack of equipment, weather restraints, etc.). 88-Not Attempted due to Medical Conditions or Safety Concerns. Lying to Sitting/Side of Bed(Q: 6 Sit to Stand (QC): 4 Toilet Transfer (QC): 4 Weight Bearing Weight Bearing/Tolerated Full Weight Bearing Gait Training Does the Patient Walk?: Yes Distance: 60 ft Walk 10 feet (QC): 4 Walk 50 ft with 2 Turns(QC): 4 Gait Persons Needed: 1 Gait Assistive Device: FWW cues for step sequence and heel-toe pattern Exercises Supine Ex: LE Protocol Supine Reps: 15 Seated Therapy Exercises: Ankle pumps, Long arc quads Seated Reps: 10 Treatments TKR exercises, gait training, toileting Assessment Current Status: Good Progress Pt. did very well with exercises, able to flex knee >90 deg during heel slides, unable to fully straighten. Pt. did well with gait, proper heel-toe pattern and using step-to pattern. Pt. in bedside chair post session with legs elevated, polar pack in place and all needs met. PT Short Term Goals Short Term Goals Time Frame: April 12, 2020 Roll Left & Right: 6 Sit to lyin Lying to sitting on side of be: 6 Sit to stand: 6 Chair/dis-oo-rvczp transfer: 6 Toilet transfer: 6 Car transfer: 6 Walk 10 feet: 5 Walk 50 feet with two turns: 5 Walk 150 feet: 5 1 step (curb): 5 Picking up objects: 88 PT Steward/Stewardess Deck Goals Fpc Goals PT Fpc Goals Time Frame: April 16, 2020 Roll Left & Right (QC): 6 Sit to Lying (QC): 6 Lying-Sitting on Side/Bed(QC): 6 Sit to Stand (QC): 6 Chair/Lmh-wy-Aglgv Xfer(QC): 6 Toilet Transfer (QC): 6 Car Transfer (QC): 6 Does the Patient Walk: Yes Walk 10 feet (QC): 6 Walk 50ft with 2 Turns (QC): 6 Walk 150 ft (QC): 6 1 Step (curb) (QC): 6 4 Steps (QC): 6 PT Plan Treatment/Plan Treatment Plan: Continue Plan of Care Treatment Plan: Bed Mobility, Functional Activity Tequila, Functional Strength, Gait, Safety, Therapeutic Exercise, Transfers Treatment Duration: April 16, 2020 Frequency: 11 times per week Estimated Hrs Per Day: 1 hour per day Patient and/or Family Agrees t: Yes Time/GCodes Time In: 840 Time Out: 920 Total Billed Treatment Time: 40 Total Billed Treatment 1, Ex 15', GT 15', FA 10' LOLLY RICHARDS PT April 10, 2020 11:07
--- NOTE | 2020-04-10 11:35 | Progress Note - Hospitalist ---
Subjective HPI/CC On Admission Date Seen by Provider: April 10, 2020 Time Seen by Provider: 09:30 Irene Melendez is an 79-year-old female with past medical history of diet-controlled diabetes and osteoarthritis who presented for a scheduled knee surgery. She underwent a right knee replacement with Dr. Kurtz due to right knee osteoarthr itis today. She is doing well postoperatively. Her only complaint is nausea. She has not vomited. She denies any fevers or chills. She denies any chest pain or shortness of breath. She denies any abdominal pain. She has a history of diabetes but does not take any medications for this. She says that she has not on any daily medications at home. Subjective/Events-last exam She is sitting in her bedside chair. She has been up walking with physical therapy. She denies any complaints or concerns other than some knee pain. She denies any fevers or chills. She denies any chest pain or shortness of breath. She denies any abdominal pain, nausea, or vomiting. Objective Exam Vital Signs Vital Signs Date Time Temp Pulse Resp B/P (MAP) Pulse Ox O2 Delivery O2 Flow Rate FiO2 04/10/20 09:00 Room Air 04/10/20 08:00 36.8 80 18 143/61 (88) 95 04/10/20 04:00 2.00 Capillary Refill : Less Than 3 SecondsLess Than 3 Seconds General Appearance: No Apparent Distress, WD/WN Neck: Normal Inspection, Supple Respiratory: Lungs Clear, Normal Breath Sounds, No Respiratory Distress Cardiovascular: Regular Rate, Rhythm, No Edema, No Murmur Gastrointestinal: Normal Bowel Sounds, Non Tender, Soft Extremity: No Pedal Edema, Other (Right knee immobilizer in place) Neurologic/Psychiatric: Alert, Oriented x3, No Motor/Sensory Deficits, Normal Mood/Affect Skin: Normal Color, Warm/Dry Results/Procedures Lab Laboratory Tests 04/10/20 05:40 Patient resulted labs reviewed. Imaging: Reviewed Imaging Report Assessment/Plan Assessment and Plan Assess & Plan/Chief Complaint Right knee osteoarthritis Status post total knee arthroplasty Underwent right TKA with Dr. Kurtz 04/09 pain regimen ordered Bowel regimen ordered Incentive spirometer PT/OT Acute rehabilitation evaluation Type II diabetes mellitus Well-controlled Sliding scale insulin DVT prophylaxis: Lovenox Diagnosis/Problems Diagnosis/Problems (1) Osteoarthritis of right knee Status: Chronic Qualifiers: Osteoarthritis type: primary Qualified Codes: M17.11 - Unilateral primary osteoarthritis, right knee (2) T2DM (type 2 diabetes mellitus) Status: Chronic Qualifiers: Diabetes mellitus alf insulin use: without alf use Diabetes mellitus complication status: without complication Qualified Codes: E11.9 - Type 2 diabetes mellitus without complications Clinical Quality Measures DVT/VTE Risk/Contraindication: Risk Factor Score Per Nursin RFS Level Per Nursing on Admit: 4+=Very High [address] MD April 10, 2020 11:35
[2020-04-10 12:00] VITALS: BP 122/85
[2020-04-10 13:03] VITALS: BP 122/85
--- NOTE | 2020-04-10 15:45 | NUR ---
CM/SS visited with the patient for social service consult. Plan: The patient will go to Inpatient Rehab facility and needs walker. DME: The patient was provided a patient preference form and chose [facility]. CM/SS gave February in IRF the script to set up. No home health needs due to patient being accepted in to inpatient rehab. No further needs.
--- NOTE | 2020-04-10 20:33 | DISCHARGE SUMMARY ---
DATE OF SERVICE: DIAGNOSES: 1. Right knee primary osteoarthritis. 2. Diabetes mellitus. PROCEDURE: Right total knee arthroplasty. SUMMARY: The patient is an 79-year-old female who underwent a right total knee arthroplasty on the day of admission. Postoperatively, she did very well. At the time of discharge, she was progressing well with physical therapy. CONDITION AT DISCHARGE: Good. DISCHARGE DIET: Regular. DISPOSITION: Transfer to inpatient rehabilitation unit for continued physical and occupational therapy. Job ID: [id number] DocumentID: [id number] Dictated Date: 04/10/2020 15:35:03 Railroad Auditor Date: 04/10/2020 20:33:35 Dictated By: LONNY MCLAIN MD
[2020-04-11] MEDS ORDERED: ASPIRIN E.C. 81 MG (ECOTRIN) TAB PO SCH (09:00)
== END 2020-04-10 13:05 | DRG 470 ==
LOC: 4TH 04-09 06:04 → SURG 04-09 06:05 → 4TH 04-09 10:00
PROVIDERS: ADMIT Orthopaedic Surgery; ATTEND Orthopaedic Surgery
PROC: 0SRC0J9 Replacement of Right Knee Joint with Synthetic Substitute, Cemented, Open Approach (ICD-10-PCS; principal; 2020-04-09 07:50)
DX: M17.11 Unilateral primary osteoarthritis, right knee (principal); E11.9 Type 2 diabetes mellitus without complications; M54.9 Dorsalgia, unspecified; R11.0 Nausea
CPT/HCPCS: 36415; 73560; 80048; 82962; 83036; 85014; 85018; 86850; 86900; 86901

== ENCOUNTER 2020-04-04 07:08 | Outpatient (RCR) | payer MEDICARE, OTHER ==
[2020-04-02 10:01] VITALS: BP 181/85
[2020-04-02 10:56] LABS: BASOPHILS % (AUTO) 0 % (0-10); EOSINOPHILS # (AUTO) 0.3 10^3/uL (0.0-0.3); EOSINOPHILS % (AUTO) 4 % (0-10); HEMATOCRIT 40 % (35-52); HEMOGLOBIN 13.7 G/DL (11.5-16.0); LYMPHOCYTES # (AUTO) 1.5 X 10^3 (1.0-4.0); LYMPHOCYTES % (AUTO) 22 % (12-44); MEAN CORPUSCULAR HEMOGLOBIN 29 PG (25-34); MEAN CORPUSCULAR HGB CONC 34 G/DL (32-36); MEAN CORPUSCULAR VOLUME 84 FL (80-99); MONOCYTES # (AUTO) 0.4 X 10^3 (0.0-1.0); MONOCYTES % (AUTO) 6 % (0-12); NEUTROPHILS # (AUTO) 4.6 X 10^3 (1.8-7.8); NEUTROPHILS % (AUTO) 67 % (42-75); PLATELET COUNT 232 10^3/uL (130-400); RED CELL DISTRIBUTION WIDTH 12.7 % (10.0-14.5); WHITE BLOOD COUNT 6.9 10^3/uL (4.3-11.0)
[2020-04-02 10:57] LABS: BILIRUBIN,URINE NEGATIVE (NEGATIVE); CLARITY,URINE CLEAR; COLOR,URINE YELLOW; GLUCOSE, URINE (UA) NEGATIVE (NEGATIVE); KETONES,URINE NEGATIVE (NEGATIVE); LEUKOCYTE ESTERASE ,URINE 1+ (NEGATIVE); NITRITE,URINE NEGATIVE (NEGATIVE); PROTEIN,URINE NEGATIVE (NEGATIVE)
[2020-04-02 11:06] LABS: BACTERIA,URINE NEGATIVE /HPF; RBC,URINE 0-2 /HPF; SQUAMOUS EPITHELIAL CELL,UR 0-2 /HPF
[2020-04-02 11:07] LABS: ALBUMIN 4.2 GM/DL (3.2-4.5); CHLORIDE 107 MMOL/L (98-107); POTASSIUM 3.9 MMOL/L (3.6-5.0); SODIUM 142 MMOL/L (135-145)
[2020-04-02 11:09] LABS: CALCIUM 8.9 MG/DL (8.5-10.1)
[2020-04-02 11:10] LABS: GLUCOSE 133 MG/DL (70-105); TOTAL PROTEIN 6.9 GM/DL (6.4-8.2)
--- NOTE | 2020-04-02 11:10 | Diagnostic Imaging Report ---
EXAMINATION: PA and lateral chest at 11:02 AM. INDICATION: Preop total knee replacement. COMPARISON: There are no prior studies available for comparison. FINDINGS: The heart size is within normal limits. There are a few carotid bronchovascular markings in the right infrahilar region. The lungs are generally clear. There is no evidence for failure, pneumonia, or pleural effusion. The mediastinum is not widened. The osseous structures are intact. IMPRESSION: There is no evidence for an acute cardiopulmonary abnormality. Dictated by: Dictated on workstation # [id number]
[2020-04-02 11:11] LABS: CARBON DIOXIDE 26 MMOL/L (21-32); INR 0.9 (0.8-1.4); PROTHROMBIN TIME PATIENT 12.7 SEC (12.2-14.7)
[2020-04-02 11:12] LABS: BILIRUBIN,TOTAL 0.5 MG/DL (0.1-1.0)
[2020-04-02 11:13] LABS: ALKALINE PHOSPHATASE 71 U/L (40-136); CREATININE SERUM 0.76 MG/DL (0.60-1.30); GFR ESTIMATED > 60
[2020-04-02 11:15] LABS: BUN/CREATININE RATIO 26
[2020-04-02 11:16] LABS: ALANINE AMINOTRANSFERASE 16 U/L (0-55); ERYTHROCYTE SEDIMENTATION RATE 9 MM/HR (0-30)
[~2020-04-04] VITALS: Ht 160 cm; Wt 64.5 kg
[~2020-04-04 07:08] MED LIST changes: +OMEG10005 PO
== END 2020-04-04 15:48 | disposition home or self-care (01) ==
LOC: PREOP 07:08
PROVIDERS: ATTEND Orthopaedic Surgery
DX: Z01.810 Encounter for preprocedural cardiovascular examination (principal); Z01.811 Encounter for preprocedural respiratory examination; Z01.812 Encounter for preprocedural laboratory examination; Z11.2 Encounter for screening for other bacterial diseases; Z11.59 Encounter for screening for other viral diseases; M17.11 Unilateral primary osteoarthritis, right knee; R53.83 Other fatigue; R82.998 Other abnormal findings in urine
CPT/HCPCS: 36415; 71046; 80053; 81000; 85025; 85610; 85652; 86850; 86900; 86901; 87081; 87088; 87635; 93005

== ENCOUNTER 2020-04-10 12:13 | Inpatient (IN) | payer MEDICARE, OTHER ==
[~2020-04-10] VITALS: Ht 160.2 cm; Wt 64.0 kg
[~2020-04-10 12:13] MED LIST changes: +OXYC1TAB87 PO
--- NOTE | 2020-04-10 12:35 | NUR ---
Irene Melendez admitted to room 228-1, with an admitting diagnosis of Right Total Knee Replacement, on 04/10/20 from [place] via [facility] 4th floor medical via wheelchair, accompanied by staff. IRENE MELENDEZ introduced to surroundings, call light, bed controls, phone, TV, temperature control, lights, meal times, smoking policy, visitor policy, side rail policy, bathrooms and showers. Patient Rights given to patient in the handbook. IRENE MELENDEZ verbalizes understanding that [facility] is not responsible for the loss or damage to any personal effects or valuables that are kept in the patients posession during their hospitalization. IRENE MELENDEZ verbalizes understanding of Interdisciplinary Patient Education. Patient received Patient Rights Booklet, which includes Privacy Act Statement and Data Collection Information Summary. Saline lock intact, O2 sat 87% on RA when arrived. O2 applied at 2L.
[2020-04-10] MEDS ORDERED: BISACODYL 10 MG SUPP (DULCOLAX) PR PRN (13:00)
[2020-04-10] MEDS ORDERED: ACETAMINOPHEN 500 MG TAB (TYLENOL) PO PRN (13:00)
[2020-04-10] MEDS ORDERED: FLEET ENEMA ADULT 1 EA BTL PR PRN (13:00)
[2020-04-10] MEDS ORDERED: ONDANSETRON 4 MG (ZOFRAN) ORAL DISSOLVE TAB PO PRN ×2 (13:00→15:00)
[2020-04-10] MEDS ORDERED: diphenhydrAMINE 25 MG TAB (BENADRYL) PO PRN (13:00)
[2020-04-10] MEDS ORDERED: guaiFENesin/CODEINE (ROBITUSSIN AC) 10ML UDC PO PRN (13:00)
[2020-04-10] MEDS ORDERED: CALCIUM CARBONATE 500 MG (TUMS) TAB.CHEW PO PRN (13:00)
[2020-04-10] MEDS ORDERED: DOCUSATE SODIUM 100 MG (COLACE) CAP PO PRN (13:00)
[2020-04-10] MEDS ORDERED: LOPERAMIDE 2 MG (IMODIUM) TABLET PO PRN (13:00)
[2020-04-10] MEDS ORDERED: LACTULOSE SYRUP 10GM/15ML (ENULOSE) 30ML UDC PO PRN (13:00)
[2020-04-10] MEDS ORDERED: MELATONIN 3 MG TABLET PO PRN ×2 (13:00→14:15)
[2020-04-10 13:14] VITALS: BP 125/63
[2020-04-10 13:15] VITALS: BP 125/63
[2020-04-10] MEDS ORDERED: ACETAMINOPHEN 325 MG TABLET PO PRN ×2 (13:45→14:15)
--- NOTE | 2020-04-10 14:08 | NUR ---
ENTERED THE MED REC FROM THE DISCHARGE ON 4TH FLOOR- PT WAS ADMITTED THRU THE [facility] [place]- THEREFORE I DID NOT DO A MED REC BEFORE THE PT WAS ADMITTED. I REVIEWED THE MEDS AND WILL SPEAK TO THE PT AFTER THE MEDS ARE CONTINUED Addendum: 04/11/20 at 1448 by MARGRET ALVAREZ CPhT SPOKE WITH THE PT TO COMPLETE THE MED REC THE PT DID NOT TAKE OXYCODONE/APAP BEFORE HER SURGERY THEREFORE THAT HAS BEEN REMOVED FROM THE MED REC OT MEDS: FISH OIL VISION VITAMINS
--- NOTE | 2020-04-10 14:14 | Physical Therapy Evaluation ---
PT Evaluation-General Medical Diagnosis Admission Date April 10, 2020 at 12:35 Medical Diagnosis: R TKA Onset Date: April 09, 2020 Therapy Diagnosis Therapy Diagnosis: decreased mobility, decreased R knee strength and ROM Precautions Precautions/Isolations: Standard Precautions Weight Bear Status Right Lower Extremity: Right Weight Bearing/Tolerated Left Lower Extremity: Left Full Weight Bearing Referral Physician: Dr. Sen Reason for Referral: Evaluation/Treatment Medical History Current History Pt. had elective R TKA by Dr. Kurtz due to failed conservative measures. Reviewed History: Yes Social History Home: Single Level Current Living Status: Alone Entry Into Home: Stairs With Railing PT Steps Into Home: 1 Prior Prior Level of Function SCALE: Activities may be completed with or without assistive devices. 0-Lrdtpsnvjk-czzeqki completes the activity by him/herself with no assistance from a helper. 5-Set-up or Clean-up Assistance-helper sets up or cleans up; patient completes activity. [place] assists only prior to or following the activity. 4-Supervision or Touching Assistance-helper provides verbal cues and/or touching/steadying and/or contact guard assistance as patient completes activity. Assistance may be provided throughout the activity or intermittently. 3-Partial/Moderate Assistance-helper does LESS THAN HALF the effort. [place] lifts, holds or supports trunk or limbs, but provides less than half the effort. 2-Substantial/Maximal Assistance-helper does MORE THAN HALF the effort. [place] lifts or holds trunk or limbs and provides more than half the effort. 8-Mheftahci-baanmg does ALL the effort. Patient does none of the effort to complete the activity. Or, the assistance of 2 or more helpers is required for the patient to complete the activity. If activity was not attempted, code reason: 7-Patient Refused. 9-Not Applicable-not attempted and the patient did not perform the activity before the current illness, exacerbation or injury. 10-Not Attempted due to Environmental Limitations-(lack of equipment, weather restraints, etc.). 88-Not Attempted due to Medical Conditions or Safety Concerns. Bed Mobility: 6 Transfers (B,C,W/C): 6 Gait: 6 Stairs: 6 Indoor Mobility (Ambulation): Independent Stairs: Independent Prior Devices Use: None PT Evaluation-Current Subjective Pt. states she has 0/10 R knee pain at rest, 10/10 with movement. During session, patient requests a pain pill, nursing notified. Pt/Family Goals home Objective Patient Orientation: Person, Place, Time, Situation Attachments: Polar Pack ROM/Strength ROM Lower Extremities WNL except focal deficit at R knee Strength Lower Extremities Grossly 5/5 L LE; 4/5 R hip and ankle, n/a R knee Neuromuscular (Tone, Coordination, Reflexes) unremarkable Sensory Vision: Functional Hearing: Functional Sensation Right Upper Extremit: Intact Sensation Left Upper Extremity: Intact Sensation Right Lower Extremit: Impaired Sensation Left Lower Extremity: Intact Transfers Roll Left to Right (QC): 4 Sit to Lying (QC): 4 Lying to Sitting/Side of Bed(Q: 4 Sit to Stand (QC): 4 Chair/Bdj-uc-Zkgiv Xfer(QC): 4 Toilet Transfer (QC): 4 Car Transfer (QC): 4 Gait Does the Patient Walk?: Yes Mode of Locomotion: Walk Anticipated Mode of Locomotion: Walk Walk 10 feet (QC): 4 Walk 50 ft with 2 Turns(QC): 4 Walk 150 ft (QC): 4 Walking 10ft/uneven surface-QC: 88 Distance: 2 x 150 ft Gait Assistive Device: FWW Comments/Gait Description cues for heel-toe pattern and step-to pattern Wheelchair Training Does the Pt Use a Wheelchair?: No Wheel 50 ft with 2 turns (QC): 9 Wheel 150 ft (QC): 9 Stairs 1 Step (curb) (QC): 88 4 Steps (QC): 88 12 Steps (QC): 88 Balance Sitting Static: Good Sitting Dynamic: Good Standing Static: Fair Standing Dynamic: Fair Picking up an Object (QC): 88 Treatment TKA protocol 2 x 10 reps; Nustep L2 x 10', CPM placed to R knee with polar pack positioned. Partial co-tx with OT; PT working on standing balance and R TKE while OT addresses ADLs. Pt. fatigued during session. Assessment/Needs Pt. is an 79 y.o. female s/p R TKA who presents to ARU with decreased mobility and limitations of strength and ROM in the R knee. Pt. would benefit from skilled PT to restore mobility and strength for return home independently. 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 Goals Jail Goals PT Jail Goals Time Frame: April 21, 2020 Roll Left & Right (QC): 6 Sit to Lying (QC): 6 Lying-Sitting on Side/Bed(QC): 6 Sit to Stand (QC): 6 Chair/Esa-mk-Plpym Xfer(QC): 6 Toilet Transfer (QC): 6 Car Transfer (QC): 6 Does the Patient Walk: Yes Walk 10 feet (QC): 6 Walk 50ft with 2 Turns (QC): 6 Walk 150 ft (QC): 6 Walking 10ft on Uneven Surface: 6 1 Step (curb) (QC): 6 4 Steps (QC): 6 12 Steps (QC): 6 Picking up an Object (QC): 6 Does the Pt use WC or Scooter?: No Wheel 50 feet with 2 turns (QC: 9 Wheel 150 feet: 9 PT Plan Problem List Problem List: Activity Tolerance, Functional Strength, Safety, Balance, Gait, Transfer, Bed Mobility, ROM Treatment/Plan Treatment Plan: Continue Plan of Care Treatment Plan: Bed Mobility, Concurrent Therapy, Education, Functional Activity [place], Functional Strength, Group Therapy, Gait, Safety, Therapeutic Exercise, Transfers Treatment Duration: April 21, 2020 Frequency: 6 times per week Estimated Hrs Per Day: 1.5 hours per day Patient and/or Family Agrees t: Yes Discharge Recommendations Therapy Discharge Recommendati: Post Acute PT Equpiment Recommendations-D/C: Front Wheeled Walker Time/GCodes Time In: 1240 Time Out: 1440 Total Billed Treatment Time: 95 Total Billed Treatment 1, EVL 10' 3548-1478; FA 25' 4530-0249 co-tx with OT; Ex 40' 3293-7024; GT 20' co-tx with OT [id number] LOLLY RICHARDS PT April 10, 2020 14:14
[2020-04-10] MEDS ORDERED: ONDANSETRON 4 MG/2 ML (SDV) Z0FRAN IVP PRN (14:15)
[2020-04-10] MEDS ORDERED: ENOXAPARIN 30 MG/0.3 ML (LOVENOX) SYR SC SCH (14:15)
[2020-04-10] MEDS ORDERED: polyethylene glycoL POWDER 17 GM (MIRALAX) PACK PO PRN (14:15)
[2020-04-10] MEDS ORDERED: diphenhydrAMINE 50 MG/ML INJ (BENADRYL) IVP PRN (14:15)
--- NOTE | 2020-04-10 15:03 | ST Cognitive Linguistic Eval ---
Speech Evaluation-General Medical Diagnosis R TKA Onset Date: April 09, 2020 Therapy Diagnosis Therapy Diagnosis: Cognitive-communication Referral Referring Physician: Dr. Sen Medical History Reviewed History: Yes Social History Current Living Status: Alone Speech PLF-Current Status Prior Level of Function Patient lives home alone where she was independent for her daily needs. Subjective Patient was pleasant and compliant with the cognitive assessment. Language Eval: Auditory Comprehends Simple Yes/No Ques: Functional Indent/Objects Multiple [place]: Functional Ident/Pics in Multiple [place]: Functional Follows 1-Step Commands: Functional Follows Complex Directions: Functional Follows General Conversations: Functional Language Eval: Verbal Language Completes Spontaneous Greeting: Functional Produces Auto, Serial Info: Functional Imitates Simple Words/Phrases: Functional Word Finding: Functional Requests Basic Needs: Functional States Basic Personal Info: Functional Expresses Complex Ideas: Functional Objective Cognitive Domain Attention: WNL Memory: WNL Problem Solving: Functional Executive Functions: WNL Visuospatial Skills: WNL Composite Severity Rating: WNL Clock Drawing Severity Rating: WNL Objective Formal/Standardized Tests [facility] Mental Status ([facility]) Results 28/30, within normal range of function Oral Motor/Speech Production Within Normal Limits Impression Patient is a pleasant 79 y/o female who was admitted to the ARU s/p knee replacement surgery. Patient was given the UMS at bedside with a score of 28/30 obtained. This score is within normal limits. At this time ST services are not required for rehab. Speech Patient Assess Expression of Ideas/Wants: Expression (4) Understanding Verbal Content: Understands (4) Brief Interview-Mental Status: Yes Repetition of Three Words: Three (3) Temporal Orientation: Year: Correct (3) Temporal Orientation: Month: Accurate within 5 days(2) Temporal Orientation: Day: Correct (1) Recall : Wear to say "Sock": Yes, no cue required (2) Recall : Color: Yes, after cueing (1) Recall : Bed: Yes, no cue required (2) Memory/Recall Ability: Current season, That he or she is in a hsp/hsp unit Speech-Plan Patient/Family Goals Patient/Family Goals: Patient plans on returning to her home with family support upon hospital discharge. Treatment Plan Speech Therapy Treatment Plan: Discontinue ST Treatment Duration: April 10, 2020 Frequency: 1 time per week Estimated Hrs Per Day: .25 hour per day Rehab Potential: Good Barriers to Learning: None identified Pt/Family Agrees to Plan: Yes Safety Risks/Education Teaching Recipient: Patient Teaching Methods: Discussion Response to Teaching: Verbalize Understanding Education Topics Provided: Safety within her room and communication of wants/needs Time Speech Therapy Time In: 14:50 Speech Therapy Time Out: 15:05 Total Billed Time: 15 Billed Treatment Time 1, GINNA Hoyt April 10, 2020 15:03
[2020-04-10] MEDS: oxyCODONE/APAP 5/325MG (PERCOCET 5) TABLET PO PRN ×2 (15:08→21:19)
--- NOTE | 2020-04-10 15:15 | NUR ---
Dr. Kurtz notified of moderate amount of blood drainage on dressing. Orders received to not change dressing.
[2020-04-10] MEDS: inSUlin ASPART (NovoLOG) 1 UNIT/0.01 ML (CHARGE PER UNIT) SC SCH ×2 (15:51→20:36)
--- NOTE | 2020-04-10 16:06 | Occupational Therapy Eval ---
OT Evaluation-General/PLF Medical Diagnosis Admission Date April 10, 2020 at 12:35 Medical Diagnosis: R TKA Onset Date: April 09, 2020 Therapy Diagnosis Therapy Diagnosis: Decreased ADL skills Precautions Precautions/Isolations: Fall Prevention, Standard Precautions Weight Bear Status Weight Bearing Restriction: Weight Bearing/Tolerated Referral Physician: Dr. Sen Referral Reason: Activity Tolerance, Self Care, Evaluation/Treatment, Strengthening/ROM Medical History Pertinent Medical History: DM Reviewed History: Yes Social History Home: Single Level Current Living Status: Alone Entry Into Home: Stairs With Railing Steps Into Home: 1 ADL-Prior Level of Function SCALE: Activities may be completed with or without assistive devices. 1-Quchatknrm-qvueoxc completes the activity by him/herself with no assistance from a helper. 5-Set-up or Clean-up Assistance-helper sets up or cleans up; patient completes activity. [place] assists only prior to or following the activity. 4-Supervision or Touching Assistance-helper provides verbal cues and/or touching/steadying and/or contact guard assistance as patient completes activity. Assistance may be provided throughout the activity or intermittently. 3-Partial/Moderate Assistance-helper does LESS THAN HALF the effort. [place] lifts, holds or supports trunk or limbs, but provides less than half the effort. 2-Substantial/Maximal Assistance-helper does MORE THAN HALF the effort. [place] lifts or holds trunk or limbs and provides more than half the effort. 4-Xhkhlrkdw-wkzzqu does ALL the effort. Patient does none of the effort to complete the activity. Or, the assistance of 2 or more helpers is required for the patient to complete the activity. If activity was not attempted, code reason: 7-Patient Refused. 9-Not Applicable-not attempted and the patient did not perform the activity before the current illness, exacerbation or injury. 10-Not Attempted due to Environmental Limitations-(lack of equipment, weather restraints, etc.). 88-Not Attempted due to Medical Conditions or Safety Concerns. ADL PLOF Comments Pt. was independent with daily skills. Does not use walker at home. Pt. drives. 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 DME/Equipment: Bath Chair, Grab Bars, Shower, Tall Toilet OT Current Status Subjective No pain reported. Appearance Pt. alert and agrees to work with therapy. Mental Status/Objective Patient Orientation: Person, Place Current Upper Extremity ROM WFL ADL-Treatment Eating (QC): 6 Oral Hygiene (QC): 4 (SBA standing at sink.) Shower/Bathe Self (QC): 7 (Pt. declines bathing.) Upper Body Dressing (QC): 5 Lower Body Dressing (QC): 3 (Min assist to don shorts.) On/Off Footwear (QC): 3 Toileting Hygiene (QC): 4 (SBA) Other Treatments Pt. participated in partial cotreatment with PT/OT due to fatigue and need of two skilled clinicians for ADLs/transfers/mobility/exercises. PT focused on transfers and mobility while OT initiated ADL skills and balance training with ADL transfers. Pt. participated in dressing/grooming tasks, as well as UE exercises with red theraband, yellow therapy sponge, and 12 minutes on arm bike at min resistance. At end of treatment, pt. in bed with CPM on and all needs met. Education OT Patient Education: Correct positioning, Exercise program, Modified ADL techniques, Progress toward Goal/Update tx plan, Purpose of tx/functional activities, Reviewed precautions, Rehab process, Transfer techniques Teaching Recipient: Patient Teaching Methods: Demonstration, Discussion Response to Teaching: Verbalize Understanding, Return Demonstration OT Grain Shoveler Goals Correction Goals Time Frame: April 24, 2020 Eating (QC): 6 Oral Hygiene (QC): 6 Toileting Hygiene (QC): 6 Shower/Bathe Self (QC): 5 Upper Body Dressing (QC): 6 Lower Body Dressing (QC): 6 On/Off Footwear (QC): 6 Additional Goals: 1-Demonstrate ADL Tasks, 2-Verbalize Understanding, 3-ImproveStrength/[place] 1=Demonstrate adherence to instructed precautions during ADL tasks. 2=Patient will verbalize/demonstrate understanding of assistive devices/modifications for ADL. 3=Patient will improve strength/tolerance for activity to enable patient to perform ADL's. OT Education/Plan Problem List/Assessment Assessment: Decreased Activ Tolerance, Impaired I ADL's, Impaired Self-Care Skills Discharge Recommendations Plan/Recommendations: Continue POC Therapy Discharge Recommendati: Post Acute OT Treatment Plan/Plan of Care Treatment,Training & Education: Yes Patient would benefit from OT for education, treatment and training to promote independence in ADL's, mobility, safety and/or upper extremity function for ADL's. Plan of Care: ADL Retraining, Functional Mobility, UE Funct Exercise/Act Treatment Duration: April 24, 2020 Frequency: At least 5 of 7 days/Wk (IRF) Estimated Hrs Per Day: 1.5 hours per day Agreement: Yes Rehab Potential: Good Time/GCodes Start Time: 12:40 Stop Time: 14:45 Total Time Billed (hr/min): 75 Billed Treatment Time 4119-3663 PT eval, no charge 9438-1026 1, EVL x 10minutes 1170-7018 Co-treatment with PT ADL x 25minutes 2176-6753 1, EX x 15minutes 5325-1151 Partial Co-treatment with PT FA x 25minutes LORRAINE GRIMM OT April 10, 2020 16:06
--- OUTSIDE RECORDS SUMMARY | 2020-04-10 16:44 | XMS REPORT | Continuity of Care Document ---
Author Organization Unknown Address Unknown Phone Unavailable Allergies Active Description Code Type Severity Reaction Onset Reported/Identified Relationship to Patient Clinical Status Yes No Known Drug Allergies [id number] Drug Allergy Unknown N/A 08/20/2019 Medications There [...] VY FALCON MD, Ot Z79.89 9 OTHER SENIOR LIVING (CURRENT) DRUG THERAPY 08/23/2019 VY FALCON MD, Ot Z80.3 FAMILY HISTORY OF MALIGNANT NEOPLASM OF 08/23/2019 VY FALCON MD, Ot Z83.3 FAMILY HISTORY OF DIABETES MELLITUS 08/27/2019 VY FALCON MD Ot E11.9 TYPE 2 DIABETES MELLITUS WITHOUT COMPLIC 08/27/2019 VY FALCON MD, Ot K40.90 UNIL INGUINAL HERNIA, W/O OBST OR GANGR, 08/27/2019 VY FALCON MD, Ot Z79.89 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 08/27/2019 VY FALCON MD, Ot Z80.3 FAMILY HISTORY OF MALIGNANT NEOPLASM OF 08/27/2019 VY FALCON MD, Ot Z83.3 FAMILY HISTORY OF DIABETES MELLITUS 08/27/2019 VY FALCON MD, Ot E11.9 TYPE 2 DIABETES MELLITUS WITHOUT COMPLIC 08/27/2019 VY FALCON MD, Ot K40.90 UNIL INGUINAL HERNIA, W/O OBST OR GANGR, 08/27/2019 VY FALCON MD, Ot Z79.89 9 OTHER SENIOR LIVING (CURRENT) DRUG THERAPY 08/27/2019 VY FALCON MD, [...] SPECIFIED DISORDERS OF BONE, OTHER 12/26/2019 CHAPARRITA CAMARGO Ot M21.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 [...] OF POPLITEAL SPACE [TRACY] 01/17/2020 CHAPARRITA CAMARGO [facility] Ot M21.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 OF RIGHT 01/17/2020 CHAPARRITA CAMARGO [facility] Ot M89.8X8 OTHER SPECIFIED DISORDERS OF BONE, [...] 30 Blood type T Indirect antibody screen [facility] - 04/02/20 10:45 ABO+Rh group AP NRG [...] Coronavirus Ab [Units/volume] in Serum Negative Negative Blood type T Indirect antibody screen [facility] - 04/09/20 06:25 WRISTBAND NUMBER [id number] NRG ABO+Rh group AP NRG Blood group antibody screen NEGATIVE NR G Capillary blood glucose measurement by g lucometer (mass/volume) - 04/09/20 09:05 Capillary blood glucose measurement by glucometer (mas s/volume) 150 mg/dL 70-110 Capillary blood glucose measurement by g lucometer (mass/volume) - 04/09/20 11:00 Capillary blood glucose measurement by glucometer (mas s/volume) 178 mg/dL 70-110 Capillary blood glucose measurement by g lucometer (mass/volume) - 04/09/20 15:45 Capillary blood glucose measurement by glucometer (mas s/volume) 134 mg/dL 70-110 Capillary blood glucose measurement by g lucometer (mass/volume) - 04/09/20 20:49 Capillary blood glucose measurement by glucometer (mas s/volume) 188 mg/dL 70-110 Capillary blood glucose measurement by g lucometer (mass/volume) - 04/10/20 05:37 Capillary blood glucose measurement by glucometer (mas s/volume) 148 mg/dL 70-110 Whole blood hemoglobin and hematocrit pa chris - 04/10/20 05:40 Venous blood hemoglobin measurement (mass/volume) 10.2 g/dL 11.5-16.0 Blood hematocrit (volume fraction) 32 % 35-52 Whole blood basic metabolic panel - 03/28 03/17 05:40 Serum or plasma sodium measurement (moles/volume) 140 mmol/L 135-145 Serum or plasma potassium measurement (moles/volume) 3.9 mmol/L 3.6-5.0 Serum or plasma chloride measurement (moles/volume) 107 mmol/L 98-107 Carbon dioxide 25 mmol/L 21-32 Serum or plasma anion gap determination (moles/volume) 8 mmol/L 5-14 Serum or plasma urea nitrogen measurement (mass/volume ) 12 mg/dL 7-18 Serum or plasma creatinine measurement (mass/volume) 0.77 mg/dL 0.60-1.30 Serum or plasma urea nitrogen/creatinine mass ratio 16 NRG Serum or plasma creatinine measurement w ith calculation of estimated glomerular filtration rate > NRG Serum or plasma glucose measurement (mass/volume) 138 mg/dL 70-105 Serum or plasma calcium measurement (mass/volume) 7.7 mg/dL 8.5-10.1 Capillary blood glucose measurement by g lucometer (mass/volume) - 04/10/20 11:18 Capillary blood glucose measurement by glucometer (mas s/volume) 135 mg/dL 70-110 Capillary blood glucose measurement by g lucometer (mass/volume) - 04/10/20 15:24 Capillary blood glucose measurement by glucometer (mas s/volume) 176 mg/dL 70-110 Encounters ACCT No. Visit Date/Time Discharge Status Pt. Type Provider Facility Loc./Unit Complaint [id number] 04/04/2020 07:08:00 15:48:00 DIS Outpatient LONNY MCLAIN MD [facility] PREOP OSTEOARTHRITIS RIGHT K NEE [id number] 12/20/2019 10:37:00 23:59:59 CLS Outpatient CHAPARRITA CAMARGO [facility] RAD FS M95.8 [id number] 12/18/2019 10:12:00 23:59:59 CLS Outpatient CHAPARRITA CAMARGO [facility] RAD OSTEOARTHRITIS, RT KNE E [id number] 08/23/2019 06:50:00 14:00:00 DIS Outpatient VY FALCON MD Via [facility] RIGHT INGUINAL HERNIA [id number] 08/20/2019 12:42:00 15:30:00 DIS Outpatient VY FALCON MD [facility] PREOP RIGHT INGUINAL HERNIA [id number] 03/08/2019 13:50:00 23:59:59 CLS Outpatient CHAPARRITA CAMARGO [facility] RAD FS OSTEOARTHRITIS RIGHT K NEE [id number] 04/10/2020 15:30:00 Document Registration [id number] 04/09/2020 06:04:[address] Inpatient LONNY MCLAIN MD [facility] 4TH RIGHT KNEE OSTEOARTHRITIS
[2020-04-10 17:05] VITALS: BP 137/65
--- NOTE | 2020-04-10 18:14 | PM&R Post Admission Assessment ---
PM&R HP Date of Visit: April 10, 2020 Time of Visit: 18:15 History of Present Illness CC: Right total knee arthroplasty uncomplicated by Dr Kurtz POD # 1 HPI: This is an 79yoWF clinic patient of Dr Tucker and Lisette Kennedy who presents to the IRF in need of aggressive rehab after right TKA in order to return home to live alone. Patient has 2 daughters, 1 in [facility] and 1 in [place]. 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 Patient does not use O2 or CPAP. Labs remain stable and has not had a BM since before surgery. Vitals remain stable. CPM machine will be set up at her request. IS will be maintained. PLOF was the use of a cane due to severe right knee pain. Patient meets IRF criteria and does not have a qualifying 60% diagnosis. Patient will be admitted to ARU due to COVID-19 crisis. This patient is an appropriate 40% patient, who during this COVID emergency, requires the admission to acute rehab. Past Pdizbuj-Elyhjy-Kgwmqp Hx Past Med/Social Hx: Reviewed Nursing Past Med/Soc Hx, Reviewed and Corrections made Patient Social History Marrital Status: single Employed/Student: retired Alcohol Use: Denies Use Recreational Drug Use: No Smoking Status: Never a Smoker 2nd Hand Smoke Exposure: No Physical Abuse Screen: No Sexual Abuse: No Recent Foreign Travel: No Contact w/other who traveled: No Recent Hopitalizations: Yes (via [facility] Right Knee Surgery) Recent Infectious Disease Expo: No Immunizations Up To Date Date of Pneumonia Vaccine: March 30, 2017 Seasonal Allergies Seasonal Allergies: No Past Medical History Surgeries: Eye Surgery, Orthopedic Currently Using CPAP: No Currently Using BIPAP: No Sexually Transmitted Disease: No HIV/AIDS: No Musculoskeletal: Arthritis HEENT: Cataract Loss of Vision: Denies Hearing Impairment: Denies History of Blood Disorders: No Adverse Reaction to Blood Butt: No (N/A) Family History Arthritis G8 BROTHER G8 SISTER Diabetes mellitus G8 BROTHER Prior Level of Function Bed Mobility: 6 Transfers: 6 Gait: 6 Stairs: 6 Indoor Mobility (Ambulation): Independent Stairs: Independent Prior Devices Use: None Current Level of Fuctioning Roll Left to Right: 4 Sit to Lyin Lying to Sitting/Side of Bed: 4 Sit to Stand: 4 Chair/Gej-ot-Lyzxs Xfer: 4 Car Transfer: 4 Does the Patient Walk: Yes Mode of Locomotion: Walk Anticipated Mode of Locomotion: Walk Walk 10 feet: 4 Walk 50 ft with 2 Turns: 4 Walk 150 ft: 4 Walking 10ft on uneven surface: 88 Gait Assistive Device: FWW Does the Pt Use a Wheelchair: No Wheel 50 ft with 2 turns: 9 Wheel 150 ft: 9 1 Step (curb): 88 4 Steps: 88 12 Steps: 88 Picking up an Object: 88 Eatin Oral Hygiene: 4 (SBA standing at sink.) Shower/Bathe Self: 7 (Pt. declines bathing.) Upper Body Dressin Lower Body Dressin (Min assist to don shorts.) On/Off Footwear: 3 Toileting Hygiene: 4 (SBA) PM&R Allergy/Meds/Data Review Allergies Coded Allergies: No Known Drug Allergies (Unverified , 08/20/19) Home Medications Scheduled Beta-Carotene(A) W-C & E/Min (Vision Vitamins), 1 EACH PO DAILY, (Reported) [place]-3 Fatty Acids ([place]-3), 1,000 MG PO DAILY, (Reported) Oxycodone HCl/Acetaminophen (Percocet 5-325 mg Tablet), 1 TAB PO Q4H Current Medications Current Medications Reviewed Laboratory Data Laboratory Tests 04/10/20 15:24: Glucometer 176H Review of Systems Constitutional: see HPI EENTM: no symptoms reported Respiratory: no symptoms reported Cardiovascular: no symptoms reported Gastrointestinal: constipation Genitourinary: no symptoms reported Musculoskeletal: joint pain (right knee) Skin: no symptoms reported Psychiatric/Neurological: No Symptoms Reported All Other Systems Reviewed Negative Unless Noted: Yes Physical Exam Physical Exam Vital Signs Vital Signs - First Documented 04/10/20 13:14 Temp 37.2 Pulse 80 Resp 18 B/P (MAP) 125/63 Pulse Ox 94 O2 Delivery Nasal Cannula O2 Flow Rate 2.00 Capillary Refill : Less Than 3 Seconds Height, Weight, BMI Height: '" Weight: lbs. oz. kg; 24.93 BMI Method: General Appearance: No Apparent Distress, WD/WN Eyes: Bilateral Eye Normal Inspection, Bilateral Eye PERRL HEENT: PERRL/EOMI, Normal ENT Inspection, Pharynx Normal Neck: Full Range of Motion, Normal Inspection, Non Tender, Supple, Carotid Bruit Respiratory: Chest Non Tender, Lungs Clear, Normal Breath Sounds, No Accessory Muscle Use, No Respiratory Distress Cardiovascular: Regular Rate, Rhythm, No Edema, No Gallop, No JVD, No Murmur, Normal Peripheral Pulses Gastrointestinal: Normal Bowel Sounds, No Organomegaly, No Pulsatile Mass, Non Tender, Soft Back: Normal Inspection, No CVA Tenderness, No Vertebral Tenderness Extremity: Normal Capillary Refill, Normal Inspection, Normal Range of Motion (except right knee), Non Tender, No Calf Tenderness, No Pedal Edema Neurologic/Psychiatric: Alert, Oriented x3, No Motor/Sensory Deficits, Normal Mood/Affect, countersinker balance screw hole II-XII Norm as Tested, Abnormal Gait Skin: Normal Color, Warm/Dry Lymphatic: No Adenopathy PM&R Medical Assessment & Plan REHAB/MEDICAL ASSESSMENT AND PLAN: REHAB IMPAIRMENT GROUP: Right TKA ETIOLOGIC DIAGNOSIS: Right TKA The comorbidities that impact the patients function and/or functional outcome by: advanced age, frail status, lives alone, requiring O2 currently not at home REHAB PLAN: The patient is being admitted to our comprehensive inpatient rehabilitation facility and can tolerate the intensity of service consisting of at least: 180 minutes of therapy a day, 5 out of 7 days a week Rehab treatment will consist of: PT OT will focus on regaining strength and ADL's in order to return home safely to live alone The patient/family has a good understanding of our discharge process and will benefit from an interdisciplinary inpatient rehabilitation program. The patient has potential to make improvement and is in need of at least two of the following multidisciplinary therapies including but not limited to physical, occupational, speech, and prosthetics and orthotics. Additionally the patient will need services from respiratory, nutritional services, wound care, psychology, etc. (Customize this to each patient). Given the patients complex condition and risk of further medical complications, rehabilitation services cannot be safely or effectively provided at a lower level of care such as a jail facility. BARRIERS TO DISCHARGE: Lives alone ESTIMATED LOS: 6 days DISPOSITION: Improved RELEVANT CHANGES SINCE PREADMISSION SCREENING: I have compared the patients medical and functional status at the time of the preadmission screening and there are: no changes PROGNOSIS: Good REHABILITATION GOALS: 1. PT OT will focus on regaining strength and ADL's in order to return home safely to live alone All the above goals were reviewed with the patient and he/she is in agreement. By signing this document, I acknowledge that I have personally performed a full physical examination on this patient within 24 hours of admission to this inpatient rehabilitation facility and have determined the patient to be able to tolerate the above course of treatment at an intensive level for a reasonable period of time. I will be completing a detailed individualized Plan of Care for this patient by day #4 of the patients stay based upon the Preadmission Screen, the Post-Admission Evaluation, and the therapy evaluations. Admission Dx/Comorbidities: (1) Status post right knee replacement ICD Codes: Z96.651 - Presence of right artificial knee joint (2) Hypoxia ICD Codes: R09.02 - Hypoxemia (3) Constipation ICD Codes: K59.00 - Constipation, unspecified (4) Arthritis ICD Codes: M19.90 - Unspecified osteoarthritis, unspecified site (5) Postoperative anemia ICD Codes: D64.9 - Anemia, unspecified Assessment/Plan Assessment and Plan Assess & Plan/Chief Complaint Assessment: s/p right TKA POD # 1 Post op anemia Hypoxia requiring O2 post op Constipation Arthritis Plan: Pain control BM regimen O2 Monitor closely IRF protocol WANDA ROBISON DO April 10, 2020 18:14
[2020-04-10] MEDS ORDERED: SENNA W/DOCUSATE (SENOKOT S) TABLET PO SCH (21:00)
[2020-04-10] MEDS: DOCUSATE SODIUM 100 MG (COLACE) CAP PO SCH (21:18)
[2020-04-10] MEDS: SENNA W/DOCUSATE (SENOKOT S) TABLET PO SCH (21:19)
[2020-04-10] MEDS: polyethylene glycoL POWDER 17 GM (MIRALAX) PACK PO SCH (21:21)
[2020-04-11] MEDS: oxyCODONE/APAP 5/325MG (PERCOCET 5) TABLET PO PRN (05:26)
[2020-04-11 05:39] LABS: BASOPHILS % (AUTO) 0 % (0-10); EOSINOPHILS # (AUTO) 0.2 10^3/uL (0.0-0.3); EOSINOPHILS % (AUTO) 2 % (0-10); HEMATOCRIT 30 % (35-52); HEMOGLOBIN 9.9 G/DL (11.5-16.0); LYMPHOCYTES # (AUTO) 1.1 X 10^3 (1.0-4.0); LYMPHOCYTES % (AUTO) 14 % (12-44); MEAN CORPUSCULAR HEMOGLOBIN 29 PG (25-34); MEAN CORPUSCULAR HGB CONC 33 G/DL (32-36); MEAN CORPUSCULAR VOLUME 88 FL (80-99); MEAN PLATELET VOLUME 9.4 FL (7.4-10.4); MONOCYTES # (AUTO) 0.6 X 10^3 (0.0-1.0); MONOCYTES % (AUTO) 8 % (0-12); NEUTROPHILS # (AUTO) 5.8 X 10^3 (1.8-7.8); NEUTROPHILS % (AUTO) 75 % (42-75); PLATELET COUNT 150 10^3/uL (130-400); RED CELL DISTRIBUTION WIDTH 12.1 % (10.0-14.5); WHITE BLOOD COUNT 7.6 10^3/uL (4.3-11.0)
[2020-04-11 06:00] LABS: ALANINE AMINOTRANSFERASE 13 U/L (0-55); ALBUMIN 3.2 GM/DL (3.2-4.5); ALKALINE PHOSPHATASE 56 U/L (40-136); BUN/CREATININE RATIO 15; CARBON DIOXIDE 25 MMOL/L (21-32); CHLORIDE 103 MMOL/L (98-107); CREATININE SERUM 0.68 MG/DL (0.60-1.30); GFR ESTIMATED > 60; GLUCOSE 126 MG/DL (70-105); POTASSIUM 3.7 MMOL/L (3.6-5.0); SODIUM 136 MMOL/L (135-145); TOTAL PROTEIN 5.6 GM/DL (6.4-8.2)
[2020-04-11] MEDS: inSUlin ASPART (NovoLOG) 1 UNIT/0.01 ML (CHARGE PER UNIT) SC SCH ×4 (06:10→21:06)
[2020-04-11 06:39] VITALS: BP 158/68
[2020-04-11] MEDS: MULTIVIT W/MINERALS TAB (THERAGRAN M) PO SCH (06:42)
--- NOTE | 2020-04-11 06:51 | Progress Note ---
Standard Progress Note Progress Notes/Assess & Plan Date Seen by a Provider: April 11, 2020 Time Seen by a Provider: 06:49 Progress/Assessment & Plan No complaints Vital Signs Date Time Temp Pulse Resp B/P (MAP) Pulse Ox O2 Delivery O2 Flow Rate FiO2 04/11/20 06:39 36.8 85 16 158/68 (98) 95 Nasal Cannula 2.00 04/10/20 21:00 94 Nasal Cannula 2.00 04/10/20 17:05 37.0 85 18 137/65 (89) 94 Nasal Cannula 2.00 04/10/20 16:05 94 Nasal Cannula 2.00 04/10/20 13:15 37.2 80 18 125/63 (83) 88 Room Air 04/10/20 13:14 37.2 80 18 125/63 94 Nasal Cannula 2.00 I & O 04/11/20 07:00 Intake Total 600 ml Balance 600 ml Laboratory Tests Test 04/10/20 15:24 04/10/20 20:34 04/11/20 05:17 04/11/20 05:24 Range/Units Glucometer 176 H 164 H 132 H 70-110 MG/DL White Blood Count 7.6 4.3-11.0 10^3/uL Red Blood Count 3.41 L 4.35-5.85 10^6/uL Hemoglobin 9.9 L 11.5-16.0 G/DL Hematocrit 30 L 35-52 % Mean Corpuscular Volume 88 80-99 FL Mean Corpuscular Hemoglobin 29 25-34 PG Mean Corpuscular Hemoglobin Concent 33 32-36 G/DL Red Cell Distribution Width 12.1 10.0-14.5 % Platelet Count 150 130-400 10^3/uL Mean Platelet Volume 9.4 7.4-10.4 FL Neutrophils (%) (Auto) 75 42-75 % Lymphocytes (%) (Auto) 14 12-44 % Monocytes (%) (Auto) 8 0-12 % Eosinophils (%) (Auto) 2 0-10 % Basophils (%) (Auto) 0 0-10 % Neutrophils # (Auto) 5.8 1.8-7.8 X 10^3 Lymphocytes # (Auto) 1.1 1.0-4.0 X 10^3 Monocytes # (Auto) 0.6 0.0-1.0 X 10^3 Eosinophils # (Auto) 0.2 0.0-0.3 10^3/uL Basophils # (Auto) 0.0 0.0-0.1 10^3/uL Sodium Level 136 135-145 MMOL/L Potassium Level 3.7 3.6-5.0 MMOL/L Chloride Level 103 98-107 MMOL/L Carbon Dioxide Level 25 21-32 MMOL/L Anion Gap 8 5-14 MMOL/L Blood Urea Nitrogen 10 7-18 MG/DL Creatinine 0.68 0.60-1.30 MG/DL Estimat Glomerular Filtration Rate > 60 BUN/Creatinine Ratio 15 Glucose Level 126 H 70-105 MG/DL Calcium Level 8.0 L 8.5-10.1 MG/DL Corrected Calcium 8.6 8.5-10.1 MG/DL Total Bilirubin 1.0 0.1-1.0 MG/DL Aspartate Amino Transf (AST/SGOT) 23 5-34 U/L Alanine Aminotransferase (ALT/SGPT) 13 0-55 U/L Alkaline Phosphatase 56 40-136 U/L Total Protein 5.6 L 6.4-8.2 GM/DL Albumin 3.2 3.2-4.5 GM/DL RLE--incision clean and dry. No calf tenderness. Neg Jairo's s/p RTKA doing well continue PT/OT LONNY MCLAIN MD April 11, 2020 06:51
[2020-04-11] MEDS: ENOXAPARIN 40 MG/0.4 ML (LOVENOX) SYR SC SCH (07:59)
--- NOTE | 2020-04-11 08:00 | NUR ---
STATES SLEPT WELL. DR. MCLAIN HAS BEEN HERE AND CHANGED RIGHT KNEE DRESSING. DENIES PAIN AT REST, PAIN ONLY WITH MOVEMENT. ADMITS TO NOT EATING MUCH BECAUSE "DON'T LIKE YOUR FOOD HERE". TITRATED TO ROOM AIR - SAT 93%.
--- NOTE | 2020-04-11 08:48 | PM&R Progress Note ---
Subjective HPI/CC On Admission Date Seen by Provider: April 11, 2020 Time Seen by Provider: 09:00 Subjective/Events-last exam Dr Kurtz saw her today Incision looks good Slept ok last night Nausea a bit this morning so I will have the nurse give her meds Wheezing noted and she hears it too IS used After rounds she began running a fever and became more hypoxic. Lovenox maintained since post op protocol. Albuterol was started today. WIll complete septic w/u. Non-smoker noted to have low saturation Checked meds and labs Conferred with RN Reviewed therapy notes Review of Systems General: Fatigue Pulmonary: Dyspnea Musculoskeletal: leg pain Focused Exam Lactate Level 04/11/20 18:10: Lactic Acid Level 0.74 Lactic Acid Level Laboratory Tests Test 04/11/20 18:10 Lactic Acid Level 0.74 MMOL/L (0.50-2.00) Objective Exam Vital Signs Vital Signs Date Time Temp Pulse Resp B/P (MAP) Pulse Ox O2 Delivery O2 Flow Rate FiO2 04/11/20 18:14 95 Nasal Cannula 3.00 04/11/20 17:56 38.2 103 18 138/58 (84) Capillary Refill : Less Than 3 SecondsLess Than 3 Seconds General Appearance: No Apparent Distress, WD/WN, Chronically ill, Other (fatigued) HEENT: PERRL/EOMI, Normal ENT Inspection, Pharynx Normal Neck: Full Range of Motion, Normal Inspection, Non Tender, Supple, Carotid Bruit Respiratory: Chest Non Tender, No Accessory Muscle Use, No Respiratory Distress, Decreased Breath Sounds, Wheezing Cardiovascular: Regular Rate, Rhythm, No Edema, No Gallop, No JVD, No Murmur, Normal Peripheral Pulses Gastrointestinal: Normal Bowel Sounds, No Organomegaly, No Pulsatile Mass, Non Tender, Soft Back: Normal Inspection, No CVA Tenderness, No Vertebral Tenderness Extremity: Normal Capillary Refill, Normal Inspection, Normal Range of Motion (except right knee), Non Tender, No Calf Tenderness, No Pedal Edema Neurologic/Psychiatric: Alert, Oriented x3, No Motor/Sensory Deficits, Normal M ood/Affect, core dipper II-XII Norm as Tested, Abnormal Gait Skin: Normal Color, Warm/Dry Lymphatic: No Adenopathy Results/Procedures Lab Laboratory Tests 04/11/20 05:17 04/11/20 18:10 Patient resulted labs reviewed. FIM Transfers Therapy Code Descriptions/Definitions Functional Fluker Measure: 0=Not Assessed/NA 4=Minimal Assistance 1=Total Assistance 5=Supervision or Setup 2=Maximal Assistance 6=Modified Fluker 3=Moderate Assistance 7=Complete IndependenceSCALE: Activities may be completed with or without assistive devices. 8-Xjwikprhrg-fzeloto completes the activity by him/herself with no assistance from a helper. 5-Set-up or Clean-up Assistance-helper sets up or cleans up; patient completes activity. [place] assists only prior to or following the activity. 4-Supervision or Touching Assistance-helper provides verbal cues and/or touching/steadying and/or contact guard assistance as patient completes activity. Assistance may be provided throughout the activity or intermittently. 3-Partial/Moderate Assistance-helper does LESS THAN HALF the effort. [place] lifts, holds or supports trunk or limbs, but provides less than half the effort. 2-Substantial/Maximal Assistance-helper does MORE THAN HALF the effort. [place] lifts or holds trunk or limbs and provides more than half the effort. 5-Skyuvfxjl-sbtvwi does ALL the effort. Patient does none of the effort to comp lete the activity. Or, the assistance of 2 or more helpers is required for the patient to complete the activity. If activity was not attempted, code reason: 7-Patient Refused. 9-Not Applicable-not attempted and the patient did not perform the activity before the current illness, exacerbation or injury. 10-Not Attempted due to Environmental Limitations-(lack of equipment, weather restraints, etc.). 88-Not Attempted due to Medical Conditions or Safety Concerns. Roll Left to Right (QC): 4 Sit to Lying (QC): 4 Sit to Stand (QC): 4 Chair/Uff-ob-Cqqrg Xfer(QC): 4 Car Transfer (QC): 4 Gait Training Does the Patient Walk?: Yes Walk 10 feet (QC): 4 Walk 50 ft with 2 Turns(QC): 4 Walk 150 ft (QC): 4 Walking 10ft/uneven surface-QC: 88 Gait Assistive Device: FWW Wheelchair Training Does the Pt Use a Wheelchair?: No Wheel 50 ft with 2 turns (QC): 9 Wheel 150 ft (QC): 9 Stair Training 1 Step (curb) (QC): 88 4 Steps (QC): 88 12 Steps (QC): 88 Balance Picking up an Object (QC): 88 ADL-Treatment Eating (QC): 6 Oral Hygiene (QC): 4 (SBA standing at sink.) Shower/Bathe Self (QC): 7 (Pt. declines bathing.) Upper Body Dressing (QC): 5 Lower Body Dressing (QC): 3 (Min assist to don shorts.) On/Off Footwear (QC): 3 Toileting Hygiene (QC): 4 (SBA) Assessment/Plan Assessment and Plan Assess & Plan/Chief Complaint Assessment: s/p right TKA POD # 2 Post op anemia Hypoxia requiring O2 post op Constipation Arthritis Nausea Fever with hypoxia Plan: Pain control BM regimen O2 Monitor closely IRF protocol Septic w/u Abx empirically Nebs (1) Status post right knee replacement (2) Hypoxia (3) Constipation (4) Arthritis (5) Postoperative anemia WANDA ROBISON DO April 11, 2020 08:48
--- NOTE | 2020-04-11 08:48 | Individualized Plan of Care ---
Individualized Plan of Care Rehab Nursing IPOC Order Admission Date April 10, 2020 at 12:35 Current Orders Orders Admission Order(Inpt,Obs,Sdc) (04/10/20 12:47) Vital Signs: Per Unit Policy ( 08,16,00 (04/10/20 12:47) Melvin aSlomon 09,21 (04/10/20 12:47) Sequential Compression Device Q4H (04/10/20 12:47) Animal Care Service Worker-Inpt Rehab Con (04/10/20 12:47) Rehab Nursing Orders-Ipoc (04/10/20 12:47) Physical Therapy Rehab Orders (04/10/20 12:47) Occupational Therapy Rehab Ord (04/10/20 12:47) Speech Therapy Rehab Orders (04/10/20 12:47) Cbc With Automated Diff (04/11/20 06:00) Comprehensive Metabolic Panel (04/11/20 06:00) Intake & Output 06,14,22 (04/10/20 12:47) Precautions (Aru) (04/10/20 12:47) Rehab-Intensity Of Therapy (04/10/20 12:47) Initiate Admission Nursing Pro .admission (04/10/20 12:47) Acetaminophen Tablet (Tylenol Tablet) (04/10/20 13:00) Alprazolam Tablet (Xanax Tablet) (04/10/20 13:00) Calcium Carbonate Chew Tablet (Antacid C (04/10/20 13:00) Docusate Sodium Capsule (Colace Capsule) (04/10/20 13:00) Bisacodyl Suppository (Dulcolax Supposit (04/10/20 13:00) Lactulose Oral Solution (Enulose Oral So (04/10/20 13:00) Na Phos/Na Biphos Enema (Fleet Enema Antwan (04/10/20 13:00) Guaifenesin/Codeine Syrup (Robitussin Ac (04/10/20 13:00) Loperamide Tablet (Imodium Tablet) (04/10/20 13:00) Polyethylene Glycol Powder Pkt (Miralax (04/10/20 21:00) Initiate Admission Nursing Pro .admission (04/10/20 12:47) Code/Resuscitation (04/10/20 14:13) Accucheck Achs ACHS (04/10/20 14:13) Catheter(Urinary) Discontinue (04/10/20 14:13) Dressing Order (Intervention) DAILY (04/10/20 14:13) Incentive Spirometry (Nursing) Q2H (04/10/20 14:13) Oxygen-Administer 07,19 (04/10/20 14:13) Melvin Hose , (04/10/20 14:13) Vital Signs: Hourly (Order) (04/10/20 14:13) Cho 60g/M 3snack (16-2000 David) (04/10/20 Dinner) Aspirin Enteric Coated Tablet (Ecotrin T (04/11/20 09:00) Docusate Sodium Capsule (Colace Capsule) (04/10/20 21:00) Melatonin Tablet (Melatonin Tablet) (04/10/20 14:15) Polyethylene Glycol Powder Pkt (Miralax (04/10/20 14:15) Therapeutic Multivitamin Tab (Vitamins, (04/11/20 07:00) Insulin Aspart (Novolog) (Novolog (Charg (04/10/20 16:00) Ondansetron Injection (Zofran Injectio (04/10/20 14:15) Senna S Tablet (Senokot S Tablet) (04/10/20 21:00) Acetaminophen Tablet/Caplet (Tylenol T (04/10/20 14:15) Diphenhydramine Injection (Benadryl Inje (04/10/20 14:15) Oxycodone/Apap 5/325mg Tablet (Percocet (04/10/20 14:15) Patient Visit (04/10/20 ) Speech Sound Lang Comp (04/10/20 ) Ondansetron Oral Dissolve Tab (Zofran (04/10/20 15:00) Enoxaparin Injection (Lovenox Injection) (04/11/20 08:00) Patient Visit (04/10/20 ) Pt Eval Low Complexity (04/10/20 ) Functional Activities, Ea 15 (04/10/20 ) Exercise Therap, Ea 15 Min (04/10/20 ) Gait Training, Ea 15 Min (04/10/20 ) Ambulate 08,12,20 (04/10/20 15:47) Dvt/Vte Risk - Notifiy Physici Q4H (04/10/20 15:47) Request Ot Additional Orders (04/10/20 18:50) Request Pt Additional Orders (04/10/20 18:50) Nursing Communication (Order) (04/10/20 18:50) Iron Test (Fe) (04/11/20 06:00) Albuterol Pre-Mix Nebs (Rt) (Proventil (04/11/20 09:15) Svn Small Volume Nebulizer (04/11/20 09:04) Sodium Chloride Flush (Catheter Flush Sy (04/11/20 12:45) Sodium Chloride Flush (Catheter Flush Sy (04/11/20 14:00) Patient Visit (04/11/20 ) Gait Training, Ea 15 Min (04/11/20 ) Exercise Therap, Ea 15 Min (04/11/20 ) Glucerna (04/11/20 Dinner) Patient Visit (04/11/20 ) Gait Training, Ea 15 Min (04/11/20 ) Exercise Therap, Ea 15 Min (04/11/20 ) Arterial Blood Gas (04/11/20 17:50) Arterial Blood Draw (04/11/20 17:50) Chest 1 View, Ap/Pa Only (04/11/20 17:50) Cbc With Automated Diff (04/11/20 17:50) Comprehensive Metabolic Panel (04/11/20 17:50) BNP (04/11/20 17:50) Blood Culture (04/11/20 17:50) Procalcitonin (Pct) (04/11/20 17:50) Lactic Acid Analyzer (04/11/20 17:50) Albuterol Pre-Mix Nebs (Rt) (Proventil (04/11/20 18:00) Iron Sucrose Injection (Venofer Injectio (04/12/20 09:00) Piperacillin/Tazobactam (Bulk) (Zosyn In (04/11/20 18:00) Piperacillin/Tazobactam (Bulk) (Zosyn In (04/12/20 00:00) Albuterol Pre-Mix Nebs (Rt) (Proventil (04/11/20 22:00) Arterial Blood Draw (04/11/20 18:13) Sodium Chloride Flush (Catheter Flush Sy (04/11/20 20:15) Sodium Chloride Flush (Catheter Flush Sy (04/11/20 22:00) Cbc With Automated Diff (04/12/20 06:00) Comprehensive Metabolic Panel (04/12/20 06:00) Chest Pa/Lat (2 View) (04/12/20 08:00) Rehab Nursing Orders: Ongoing Assess. of Cognitive Status, Ongoing Assess. of Function Status, Bladder Management, Bladder Scan, Bladder Training, Bowel Management, Bowel Training, Disease Management & Educaiton, DVT Prophylaxis, Fall Prevention, Fluid/Electrolyte/Nutrition Mgmt, Infection Prevention, Medication Management & Education, Management of Risks & Complications, Management of Skin Intergrity, Nutrition Management, Pain Management, Patient/Family Support, Safety Management Intensity of Therapy to be met Patient to be seen: Min.3h per day/5 of 7d PT IPOC Problem List: Activity Tolerance, Functional Strength, Safety, Balance, Gait, Transfer, Bed Mobility, ROM Treatment Plan: Continue Plan of Care Bed Mobility, Concurrent Therapy, Education, Functional Activity Tequila, Functional Strength, Group Therapy, Gait, Safety, Therapeutic Exercise, Transfers Treatment Duration: April 21, 2020 Frequency: 6 times per week Estimated Hrs Per Day: 1.5 hours per day OT IPOC Problems: Decreased Activ Tolerance, Impaired I ADL's, Impaired Self-Care Ski lls OT Treatment, Training and Edu: Yes Plan of Care: ADL Retraining, Functional Mobility, UE Funct Exercise/Act Treatment Duration: April 24, 2020 Frequency: At least 5 of 7 days/Wk (IRF) Estimated Hrs Per Day: 1.[address] IPOC Speech Therapy Treatment Plan: Discontinue ST Treatment Duration: April 10, 2020 Frequency: 1 time per week Estimated Hrs Per Day: .25 hour per day Animal Care Service Worker/Case Mgmt Animal Care Service Worker/Case Managemen: Discharge Planning Dietitian/Healthcare Analyst Dietitian/Healthcare Analyst to monitor nutritional status and make changes and/or recommendations as needed and work with speech pathology on dietary upgrades as the occur. Physician IPOC Medical Issues being managed closely and that require the 24 hour availability of a physician: Recent elective surgery with advanced age with fever now hypoxic requiring septic w/u and nebs and O2 and will monitor for decompensation Medical Issues: Bowel/Bladder Function, DVT Prophylaxis, Falls Precautions, Fluid/Electrolyte/Nutrition Balance, Infection Protection, Pain Management, Wound Care Brief Synthesis of Preadmission Screen, Post-Admission Evaluation, and Therapy Evaluations: PT OT will focus on increasing stamina while maintaining normal O2 sats while monitoring for ADL needs Medical Prognosis: Good Anticipated Length of Stay: 7 days WANDA ROBISON DO April 11, 2020 08:48
[2020-04-11] MEDS ORDERED: RT-ALBUTEROL SULF 2.5 MG/3 ML PRE-MIX VIAL INH SCH ×2 (09:15→18:00)
[2020-04-11] MEDS: ASPIRIN E.C. 81 MG (ECOTRIN) TAB PO SCH (09:28)
[2020-04-11] MEDS: polyethylene glycoL POWDER 17 GM (MIRALAX) PACK PO SCH ×2 (09:28→21:04)
[2020-04-11] MEDS: SENNA W/DOCUSATE (SENOKOT S) TABLET PO SCH ×2 (09:28→21:04)
[2020-04-11] MEDS: DOCUSATE SODIUM 100 MG (COLACE) CAP PO SCH ×2 (09:28→21:04)
--- NOTE | 2020-04-11 09:30 | NUR ---
COMPLAIN NAUSEA AND MEDICATED WITH ZOFRAN.
--- NOTE | 2020-04-11 10:14 | Physical Therapy Daily Note ---
PT Daily Note-Current Subjective Pt up in chair, agreeable. Pt reports 0/10 pain at rest. After ambulating into commons and performing exercises, Pt reported feeling flushed and nauseous, nursing notified. Mental Status Patient Orientation: Person, Place, Time, Situation Attachments: Polar Pack Transfers SCALE: Activities may be completed with or without assistive devices. 1-Wivalhspnu-tcqoouz completes the activity by him/herself with no assistance from a helper. 5-Set-up or Clean-up Assistance-helper sets up or cleans up; patient completes activity. [place] assists only prior to or following the activity. 4-Supervision or Touching Assistance-helper provides verbal cues and/or touching/steadying and/or contact guard assistance as patient completes activity. Assistance may be provided throughout the activity or intermittently. 3-Partial/Moderate Assistance-helper does LESS THAN HALF the effort. [place] lifts, holds or supports trunk or limbs, but provides less than half the effort. 2-Substantial/Maximal Assistance-helper does MORE THAN HALF the effort. [place] lifts or holds trunk or limbs and provides more than half the effort. 4-Twmcxmegu-fmopjz does ALL the effort. Patient does none of the effort to complete the activity. Or, the assistance of 2 or more helpers is required for the patient to complete the activity. If activity was not attempted, code reason: 7-Patient Refused. 9-Not Applicable-not attempted and the patient did not perform the activity before the current illness, exacerbation or injury. 10-Not Attempted due to Environmental Limitations-(lack of equipment, weather restraints, etc.). 88-Not Attempted due to Medical Conditions or Safety Concerns. Roll Left & Right (QC): 6 Sit to Lying (QC): 6 Lying to Sitting/Side of Bed(Q: 4 Sit to Stand (QC): 5 Toilet Transfer (QC): 5 Weight Bearing Right Lower Extremity: Right Weight Bearing/Tolerated Left Lower Extremity: Left Full Weight Bearing Gait Training Does the Patient Walk?: Yes Distance: 75 Walk 10 feet (QC): 4 Walk 50 ft with 2 Turns(QC): 4 Gait Persons Needed: 1 Gait Assistive Device: FWW Slow, antalgic gait with decreased TKE and weightbearing on (R) LE. VCS for reciprocal gait, TKE and heel-toe gait. Wheelchair Training Does the Pt Use a Wheelchair?: No Exercises Seated Therapy Exercises: Ankle pumps, Long arc quads (min A x 1), Hamstring Curls Seated Reps: 20 Standing Reps: 15 TKE on (R) in standing. Treatments Gait training with FWW, TKR ex. Pt in bed per her request with needs met. Assessment Current Status: Fair Progress Pt tolerated fair-well. Moving well but limited by c/o nausea. PT Intermediate Goals Bomb Technician Goals PT Intermediate Goals Time Frame: April 21, 2020 Roll Left & Right (QC): 6 Sit to Lying (QC): 6 Lying-Sitting on Side/Bed(QC): 6 Sit to Stand (QC): 6 Chair/Cin-nx-Hmaqr Xfer(QC): 6 Toilet Transfer (QC): 6 Car Transfer (QC): 6 Does the Patient Walk: Yes Walk 10 feet (QC): 6 Walk 50ft with 2 Turns (QC): 6 Walk 150 ft (QC): 6 Walking 10ft on Uneven Surface: 6 1 Step (curb) (QC): 6 4 Steps (QC): 6 12 Steps (QC): 6 Picking up an Object (QC): 6 Does the Pt use WC or Scooter?: No Wheel 50 feet with 2 turns (QC: 9 Wheel 150 feet: 9 PT Plan Problem List Problem List: Activity Tolerance, Functional Strength, Safety, Balance, Gait, Transfer, Bed Mobility, ROM Treatment/Plan Treatment Plan: Continue Plan of Care Treatment Plan: Bed Mobility, Concurrent Therapy, Education, Functional Activity Tequila, Functional Strength, Group Therapy, Gait, Safety, Therapeutic Exercise, Transfers Treatment Duration: April 21, 2020 Frequency: 6 times per week Estimated Hrs Per Day: 1.5 hours per day Patient and/or Family Agrees t: Yes Safety Risks/Education Patient Education: Gait Training Teaching Recipient: Patient Teaching Methods: Demonstration, Discussion Response to Teaching: Verbalize Understanding, Reinforcement Needed Time/GCodes Time In: 0825 Time Out: 0900 Total Billed Treatment Time: 35 Total Billed Treatment 1, EX x 15', GT x 20' ISABEL HERNANDES DPFausto April 11, 2020 10:14
--- NOTE | 2020-04-11 11:29 | Occupational Ther Daily Note ---
OT Current Status-Daily Note Subjective Pt in bed, agrees to treatment. Pt reports nausea this morning. RN aware. Pt has no reports of pain at rest, but reports pain in left knee with movement. Not rated. ADL-Treatment Pt supine to sit with assist for left LE. Pt ambulated to restroom with FWW. Toilet transfer x2 during session using grab bar for safety. Pt able to complete toileting hygiene and clothing management. Pt declined bathing this morning, but would like to change shirt. Pt doffed shirt without assist. Washed upper body with set up. Pt donned bra and pullover shirt with set up. Declined to change shorts at this time. Pt stood at sink to complete grooming tasks. Brushes teeth and mathis hair with set up. Pt requires increased time for mobility and ADLs. Takes occasional rest breaks secondary nausea. Therapy Code Descriptions/Definitions Functional [place] Measure: 0=Not Assessed/NA 4=Minimal Assistance 1=Total Assistance 5=Supervision or Setup 2=Maximal Assistance 6=Modified [place] 3=Moderate Assistance 7=Complete IndependenceSCALE: Activities may be completed with or without assistive devices. 4-Gkeygltgjz-ermzdez completes the activity by him/herself with no assistance from a helper. 5-Set-up or Clean-up Assistance-helper sets up or cleans up; patient completes activity. [place] assists only prior to or following the activity. 4-Supervision or Touching Assistance-helper provides verbal cues and/or touching/steadying and/or contact guard assistance as patient completes activity. Assistance may be provided throughout the activity or intermittently. 3-Partial/Moderate Assistance-helper does LESS THAN HALF the effort. [place] lifts, holds or supports trunk or limbs, but provides less than half the effort. 2-Substantial/Maximal Assistance-helper does MORE THAN HALF the effort. [place] lifts or holds trunk or limbs and provides more than half the effort. 7-Cobrxivrf-neiead does ALL the effort. Patient does none of the effort to complete the activity. Or, the assistance of 2 or more helpers is required for the patient to complete the activity. If activity was not attempted, code reason: 7-Patient Refused. 9-Not Applicable-not attempted and the patient did not perform the activity before the current illness, exacerbation or injury. 10-Not Attempted due to Environmental Limitations-(lack of equipment, weather restraints, etc.). 88-Not Attempted due to Medical Conditions or Safety Concerns. Oral Hygiene (QC): 5 Upper Body Dressing (QC): 5 Toileting Hygiene (QC): 5 Toilet Transfer (QC): 5 Other Treatment Pt performed bilateral UE exercises to increase strength needed for ADLs and transfers. Pt completed shoulder flexion, abduction, biceps curls, and triceps extension exercises x10 reps, 2 sets. Rest breaks between exercises. Pt sitting in chair with needs met after session. OT Back Wedger Goals Snf Goals Time Frame: April 24, 2020 Eating (QC): 6 Oral Hygiene (QC): 6 Toileting Hygiene (QC): 6 Shower/Bathe Self (QC): 5 Upper Body Dressing (QC): 6 Lower Body Dressing (QC): 6 On/Off Footwear (QC): 6 Additional Goals: 1-Demonstrate ADL Tasks, 2-Verbalize Understanding, 3- ImproveStrength/[place] 1=Demonstrate adherence to instructed precautions during ADL tasks. 2=Patient will verbalize/demonstrate understanding of assistive devices/modifications for ADL. 3=Patient will improve strength/tolerance for activity to enable patient to perform ADL's. OT Education/Plan Discharge Recommendations Plan/Recommendations: Continue POC Treatment Plan/Plan of Care Patient would benefit from OT for education, treatment and training to promote independence in ADL's, mobility, safety and/or upper extremity function for ADL's. Plan of Care: ADL Retraining, Functional Mobility, UE Funct Exercise/Act Treatment Duration: April 24, 2020 Frequency: At least 5 of 7 days/Wk (IRF) Estimated Hrs Per Day: 1.5 hours per day Agreement: Yes Rehab Potential: Good Time/GCodes Start Time: 09:45 Stop Time: 10:45 Total Time Billed (hr/min): 60 Billed Treatment Time 1 visit, ADLx2(35minutes), EXx2(25minutes) TU ANGULO OT April 11, 2020 11:29
--- NOTE | 2020-04-11 11:45 | Physical Therapy Daily Note ---
PT Daily Note-Current Subjective Pt up in chair, agreeable to TKR exercises. Continues to report nausea. Mental Status Patient Orientation: Person, Place, Time, Situation Attachments: Polar Pack Transfers SCALE: Activities may be completed with or without assistive devices. 5-Oehlvbslec-uxhvuto completes the activity by him/herself with no assistance from a helper. 5-Set-up or Clean-up Assistance-helper sets up or cleans up; patient completes activity. [place] assists only prior to or following the activity. 4-Supervision or Touching Assistance-helper provides verbal cues and/or touching/steadying and/or contact guard assistance as patient completes activity. Assistance may be provided throughout the activity or intermittently. 3-Partial/Moderate Assistance-helper does LESS THAN HALF the effort. [place] lifts, holds or supports trunk or limbs, but provides less than half the effort. 2-Substantial/Maximal Assistance-helper does MORE THAN HALF the effort. [place] lifts or holds trunk or limbs and provides more than half the effort. 4-Wdaoybnvq-rwfbsi does ALL the effort. Patient does none of the effort to complete the activity. Or, the assistance of 2 or more helpers is required for the patient to complete the activity. If activity was not attempted, code reason: 7-Patient Refused. 9-Not Applicable-not attempted and the patient did not perform the activity before the current illness, exacerbation or injury. 10-Not Attempted due to Environmental Limitations-(lack of equipment, weather restraints, etc.). 88-Not Attempted due to Medical Conditions or Safety Concerns. Roll Left & Right (QC): 6 Sit to Lying (QC): 6 Sit to Stand (QC): 5 Chair/Wbn-bd-Rwghf Xfer(QC): 5 Weight Bearing Right Lower Extremity: Right Weight Bearing/Tolerated Left Lower Extremity: Left Full Weight Bearing Exercises Supine Ex: Quad Set (tapping for facilitation), Heel Slides, Straight leg raise (Min A x 1 ), Hip abd/add Supine Reps: 20 Treatments Transfer to bed with FWW with SBA, (R) TKR exercises. In bed with polar pack in place, needs met. Assessment Current Status: Good Progress Pt tolerated well. Flexion ROM grossly 95 degrees, lacking full extension. Mobi lity limited by c/o nausea this AM. PT Snf Goals Profile Shaper Operator Goals PT Profile Shaper Operator Goals Time Frame: April 21, 2020 Roll Left & Right (QC): 6 Sit to Lying (QC): 6 Lying-Sitting on Side/Bed(QC): 6 Sit to Stand (QC): 6 Chair/Odj-zz-Xooew Xfer(QC): 6 Toilet Transfer (QC): 6 Car Transfer (QC): 6 Does the Patient Walk: Yes Walk 10 feet (QC): 6 Walk 50ft with 2 Turns (QC): 6 Walk 150 ft (QC): 6 Walking 10ft on Uneven Surface: 6 1 Step (curb) (QC): 6 4 Steps (QC): 6 12 Steps (QC): 6 Picking up an Object (QC): 6 Does the Pt use WC or Scooter?: No Wheel 50 feet with 2 turns (QC: 9 Wheel 150 feet: 9 PT Plan Problem List Problem List: Activity Tolerance, Functional Strength, Safety, Balance, Gait, Transfer, Bed Mobility, ROM Treatment/Plan Treatment Plan: Continue Plan of Care Treatment Plan: Bed Mobility, Concurrent Therapy, Education, Functional Activity Tequila, Functional Strength, Group Therapy, Gait, Safety, Therapeutic Exercise, Transfers Treatment Duration: April 21, 2020 Frequency: 6 times per week Estimated Hrs Per Day: 1.5 hours per day Patient and/or Family Agrees t: Yes Time/GCodes Time In: 1045 Time Out: 1110 Total Billed Treatment Time: 25 Total Billed Treatment 1, EX x 25' ISABEL HERNANDES DPFausto April 11, 2020 11:45
[2020-04-11] MEDS ORDERED: CATHETER FLUSH 10 ML SYR IV PRN ×2 (12:45→20:15)
--- NOTE | 2020-04-11 13:36 | Occupational Ther Daily Note ---
OT Current Status-Daily Note Subjective Pt resting in bed, agrees to therapy. States she is feeling a little better this afternoon ADL-Treatment Therapy Code Descriptions/Definitions Functional [place] Measure: 0=Not Assessed/NA 4=Minimal Assistance 1=Total Assistance 5=Supervision or Setup 2=Maximal Assistance 6=Modified [place] 3=Moderate Assistance 7=Complete IndependenceSCALE: Activities may be completed with or without assistive devices. 0-Dvjnzavmuf-yjozbao completes the activity by him/herself with no assistance from a helper. 5-Set-up or Clean-up Assistance-helper sets up or cleans up; patient completes activity. [place] assists only prior to or following the activity. 4-Supervision or Touching Assistance-helper provides verbal cues and/or touching/steadying and/or contact guard assistance as patient completes activity. Assistance may be provided throughout the activity or intermittently. 3-Partial/Moderate Assistance-helper does LESS THAN HALF the effort. [place] lifts, holds or supports trunk or limbs, but provides less than half the effort. 2-Substantial/Maximal Assistance-helper does MORE THAN HALF the effort. [place] lifts or holds trunk or limbs and provides more than half the effort. 2-Kakuwujdd-ootzhk does ALL the effort. Patient does none of the effort to complete the activity. Or, the assistance of 2 or more helpers is required for the patient to complete the activity. If activity was not attempted, code reason: 7-Patient Refused. 9-Not Applicable-not attempted and the patient did not perform the activity before the current illness, exacerbation or injury. 10-Not Attempted due to Environmental Limitations-(lack of equipment, weather restraints, etc.). 88-Not Attempted due to Medical Conditions or Safety Concerns. Other Treatment Supine to sit with min assist for right LE. Sit to stand with supervision. Pt performs slow paced gait to therapy gym. Requires one seated rest break secondary to fatigue. Arm bike x10 minutes to increase overall strength and activity tolerance needed for functional task completion. Pt performs task with minimal resistance and slow pace. After rest break, pt returned to room and transferred to chair with supervision. Pt sitting in chair with needs met after session. OT Long-Term Goals Long-Term Goals Time Frame: April 24, 2020 Eating (QC): 6 Oral Hygiene (QC): 6 Toileting Hygiene (QC): 6 Shower/Bathe Self (QC): 5 Upper Body Dressing (QC): 6 Lower Body Dressing (QC): 6 On/Off Footwear (QC): 6 Additional Goals: 1-Demonstrate ADL Tasks, 2-Verbalize Understanding, 3- ImproveStrength/[place]equila 1=Demonstrate adherence to instructed precautions during ADL tasks. 2=Patient will verbalize/demonstrate understanding of assistive devices/modifications for ADL. 3=Patient will improve strength/tolerance for activity to enable patient to perform ADL's. OT Education/Plan Discharge Recommendations Plan/Recommendations: Continue POC Treatment Plan/Plan of Care Patient would benefit from OT for education, treatment and training to promote independence in ADL's, mobility, safety and/or upper extremity function for ADL's. Plan of Care: ADL Retraining, Functional Mobility, UE Funct Exercise/Act Treatment Duration: April 24, 2020 Frequency: At least 5 of 7 days/Wk (IRF) Estimated Hrs Per Day: 1.5 hours per day Agreement: Yes Rehab Potential: Good Time/GCodes Start Time: 13:00 Stop Time: 13:30 Total Time Billed (hr/min): 30 Billed Treatment Time 1 visit, FA(15minutes), EX(15minutes) TU ANGULO OT April 11, 2020 13:36
[2020-04-11] MEDS ORDERED: CATHETER FLUSH 10 ML SYR IV SCH (14:00)
--- NOTE | 2020-04-11 14:19 | NUR ---
"RD ASSESSMENT PMHx: No significant PMHx; s/p R TKA PT INTERACTION: Pt was awake and pleasant during nutrition assessment. Pt states current appetite is fair, and has been this way since admit. Note avg PO intake 37% x2meal, per chart review. Pt states following a regular diet at home and has no issues with chewing/swallowing food. Pt states some issues with nausea after her procedure. Pt states no recent issues with constipation or diarrhea, and that her last BM was 04/08. Note pt currently on bowel regimen of colace BID; senna BID; and miralax BID, per chart review. Pt states no recent wt changes. Note unable to determine recent wt hx, per chart review. ABNORMAL NUTRITION-RELATED LAB VALUES LOW: Ca 8.0; Pro 5.6 HIGH: glu 126 Est. kcal needs: 1169-1810 kcal | 25-30 kcal/kg Est. Pro needs: 64-77 g Pro | 1.0-1.2 g Pro/kg PES STATEMENT: Inadequate oral intake (NI-2.1) related to loss of appetite | nausea as evidenced by pt interview | avg PO intake 37% x2meal INTERVENTION: Continue with current diet order of CHO 60g/m 3snack diet. Add Glucerna (vary) to meals TID, for increased kcal intake. Provides 220 kcal and 10 g Pro per serving. Will continue to follow and reassess as pt needs, intake, and status change. MONITOR/EVALUATE: PO Intake; Plan of Care; Hydration Status; Weight Status; Lab Values Shahla Stephenson, MS, RD, LD"
--- NOTE | 2020-04-11 14:52 | Physical Therapy Daily Note ---
PT Daily Note-Current Subjective Pt in BR, agreeable with encouragement. Mental Status Patient Orientation: Person, Place, Time, Situation Attachments: Polar Pack Transfers SCALE: Activities may be completed with or without assistive devices. 3-Bsdduohyix-jeesslp completes the activity by him/herself with no assistance from a helper. 5-Set-up or Clean-up Assistance-helper sets up or cleans up; patient completes activity. [place] assists only prior to or following the activity. 4-Supervision or Touching Assistance-helper provides verbal cues and/or touching/steadying and/or contact guard assistance as patient completes activity. Assistance may be provided throughout the activity or intermittently. 3-Partial/Moderate Assistance-helper does LESS THAN HALF the effort. [place] lifts, holds or supports trunk or limbs, but provides less than half the effort. 2-Substantial/Maximal Assistance-helper does MORE THAN HALF the effort. [place] lifts or holds trunk or limbs and provides more than half the effort. 3-Tfnlgecmi-dosmej does ALL the effort. Patient does none of the effort to complete the activity. Or, the assistance of 2 or more helpers is required for the patient to complete the activity. If activity was not attempted, code reason: 7-Patient Refused. 9-Not Applicable-not attempted and the patient did not perform the activity before the current illness, exacerbation or injury. 10-Not Attempted due to Environmental Limitations-(lack of equipment, weather restraints, etc.). 88-Not Attempted due to Medical Conditions or Safety Concerns. Sit to Lying (QC): 5 Sit to Stand (QC): 5 Toilet Transfer (QC): 5 Weight Bearing Right Lower Extremity: Right Weight Bearing/Tolerated Left Lower Extremity: Left Full Weight Bearing Gait Training Does the Patient Walk?: Yes Distance: 150 Walk 10 feet (QC): 5 Walk 50 ft with 2 Turns(QC): 5 Walk 150 ft (QC): 5 Gait Persons Needed: 1 Gait Assistive Device: FWW Pt ambulates with antaglic gait, decreased TKE and stance time on (R) LE. Wheelchair Training Does the Pt Use a Wheelchair?: No Exercises NuStep Minutes: 5 NuStep Workload: 4 Treatments Gait training with FWW, NuStep for knee ROM, placed in CPM -3-0-68 degrees. In bed with all needs met. Assessment Current Status: Good Progress Pt tolerated well. Near constant VCS for heel-toe gait, TKE. PT Assisted Goals Odd Job Laborer Goals PT Odd Job Laborer Goals Time Frame: April 21, 2020 Roll Left & Right (QC): 6 Sit to Lying (QC): 6 Lying-Sitting on Side/Bed(QC): 6 Sit to Stand (QC): 6 Chair/Hwz-du-Igllf Xfer(QC): 6 Toilet Transfer (QC): 6 Car Transfer (QC): 6 Does the Patient Walk: Yes Walk 10 feet (QC): 6 Walk 50ft with 2 Turns (QC): 6 Walk 150 ft (QC): 6 Walking 10ft on Uneven Surface: 6 1 Step (curb) (QC): 6 4 Steps (QC): 6 12 Steps (QC): 6 Picking up an Object (QC): 6 Does the Pt use WC or Scooter?: No Wheel 50 feet with 2 turns (QC: 9 Wheel 150 feet: 9 PT Plan Problem List Problem List: Activity Tolerance, Functional Strength, Safety, Balance, Gait, Transfer, Bed Mobility, ROM Treatment/Plan Treatment Plan: Continue Plan of Care Treatment Plan: Bed Mobility, Concurrent Therapy, Education, Functional Activity Tequila, Functional Strength, Group Therapy, Gait, Safety, Therapeutic Exercise, Transfers Treatment Duration: April 21, 2020 Frequency: 6 times per week Estimated Hrs Per Day: 1.5 hours per day Patient and/or Family Agrees t: Yes Safety Risks/Education Patient Education: Gait Training Teaching Recipient: Patient Teaching Methods: Discussion Response to Teaching: Verbalize Understanding, Reinforcement Needed Time/GCodes Time In: 1337 Time Out: 1407 Total Billed Treatment Time: 30 Total Billed Treatment 1, GT x 22', Ex x 8' ISABEL HERNANDES DPFausto April 11, 2020 14:51
--- NOTE | 2020-04-11 14:53 | NUR ---
CM/SS ADMISSION Patient was admitted to ARU from [facility] after right total knee arthroplasty. Patient was independent and residing alone at her home prior to this elective surgery. She plans to return home as before when physically stable to do so. PCP: Megan Tucker MD and Lisette Kennedy [facility] PHARMACY: [facility] INSURANCE: Medicare, [employer] DME: Patient will need a FWW and has indicated her preferred agency to be [facility] in [facility]. There are no other DME needs at this time, will explore therapy recommendations as patient progresses toward discharge. BARRIERS TO DISCHARGE: None noted other than patient recovery to a safe ambulation for home environment. CONTACTS: Tonie Gr, Daughter [facility] [place] [address] Gabriela Perez, Daughter [place] Patient understood the purpose and process of the weekly patient care conference and that her first review will be 04/16/20, unless she is assessed as safe for a target discharge prior to that date.
--- NOTE | 2020-04-11 16:00 | NUR ---
SALINE LOCK LEAKING AND NOT NEEDED, SO DC'D.
--- NOTE | 2020-04-11 17:40 | NUR ---
WHEN DOING ROUTINE VITAL SIGNS, FOUND TEMP. 100.8, HR 103, RESP 18, BP 138/58 AND ROOM AIR SAT 84%. PATIENT DENIED PAIN, SOB OR OTHER COMPLAINTS. O2 SAT UP TO 94% WHEN O2 PUT ON AT 3L. DR. ROBISON NOTIFIED.
[2020-04-11 17:56] VITALS: BP 138/58
[2020-04-11] MEDS ORDERED: PIPERACILLIN/TAZO 4.5 GM/NS 100 ML IV NR ×2 (18:00)
--- NOTE | 2020-04-11 18:00 | NUR ---
ABG, CXR, BLOOD CULTURES, AND LABS DONE. IV STARTED IN LEFT ARM AND STARTED ON ZOSYN. ALBUTEROL TREATMENTS STARTED.
--- NOTE | 2020-04-11 18:21 | Diagnostic Imaging Report ---
INDICATION: Wheezing and fever. COMPARISON: Comparison is made with a prior chest radiograph from April 02, 2020. FINDINGS: Some minimal linear atelectasis in the left lung base. Lungs otherwise appear clear. No new alveolar infiltrate or consolidation evident. There is no evidence to suggest a significant effusion. Heart size is more prominent on this examination acquired with AP technique. This has not significantly changed allowing for differences in technique. Pulmonary vascularity appears appropriate without evidence of failure. No findings of pneumothorax. IMPRESSION: 1. No radiographic evidence of an acute cardiopulmonary process. Dictated by: Dictated on workstation # [id number]
[2020-04-11 18:25] LABS: BASOPHILS % (AUTO) 0 % (0-10); EOSINOPHILS # (AUTO) 0.1 10^3/uL (0.0-0.3); EOSINOPHILS % (AUTO) 1 % (0-10); HEMATOCRIT 30 % (35-52); HEMOGLOBIN 10.2 G/DL (11.5-16.0); LYMPHOCYTES # (AUTO) 1.1 X 10^3 (1.0-4.0); LYMPHOCYTES % (AUTO) 12 % (12-44); MEAN CORPUSCULAR HEMOGLOBIN 29 PG (25-34); MEAN CORPUSCULAR HGB CONC 34 G/DL (32-36); MEAN CORPUSCULAR VOLUME 86 FL (80-99); MEAN PLATELET VOLUME 9.2 FL (7.4-10.4); MONOCYTES # (AUTO) 0.6 X 10^3 (0.0-1.0); MONOCYTES % (AUTO) 7 % (0-12); NEUTROPHILS # (AUTO) 7.6 X 10^3 (1.8-7.8); NEUTROPHILS % (AUTO) 81 % (42-75); PLATELET COUNT 180 10^3/uL (130-400); RED CELL DISTRIBUTION WIDTH 12.2 % (10.0-14.5); WHITE BLOOD COUNT 9.4 10^3/uL (4.3-11.0)
[2020-04-11 18:27] LABS: ABG BASE EXCESS 3.5 MMOL/L (-2.5-2.5); ABG OXYGEN SATURATION 97 % (94-100); ABG PCO2 41 MMHG (35-45); ABG PH 7.44 (7.37-7.43); ABG PO2 87 MMHG (79-93); ABG TCO2 28.3 MMOL/L (21.0-31.0); ALLENS TEST YES-POS; INSPIRED O2 3; PATIENT TEMP 38.2; VENTILATOR NO
[2020-04-11 18:34] LABS: ALBUMIN 3.5 GM/DL (3.2-4.5)
[2020-04-11 18:35] LABS: CHLORIDE 101 MMOL/L (98-107); POTASSIUM 3.6 MMOL/L (3.6-5.0); SODIUM 136 MMOL/L (135-145)
[2020-04-11 18:36] LABS: CALCIUM 8.1 MG/DL (8.5-10.1)
[2020-04-11 18:37] LABS: GLUCOSE 156 MG/DL (70-105)
[2020-04-11 18:38] LABS: CARBON DIOXIDE 25 MMOL/L (21-32)
[2020-04-11 18:39] LABS: BILIRUBIN,TOTAL 0.5 MG/DL (0.1-1.0)
[2020-04-11 18:40] LABS: ALKALINE PHOSPHATASE 58 U/L (40-136)
[2020-04-11 18:41] LABS: CREATININE SERUM 0.69 MG/DL (0.60-1.30); GFR ESTIMATED > 60
[2020-04-11 18:42] LABS: BUN/CREATININE RATIO 16
[2020-04-11 18:43] LABS: ALANINE AMINOTRANSFERASE 18 U/L (0-55)
[2020-04-11] MEDS: CATHETER FLUSH 10 ML SYR IV SCH (21:03)
[2020-04-11] MEDS: RT-ALBUTEROL SULF 2.5 MG/3 ML PRE-MIX VIAL INH SCH (22:20)
[2020-04-11] MEDS: PIPERACILLIN/TAZOBACTAM (BULK) 4.5 GM in NS (IVPB) 100 ML IV SCH (23:03)
[2020-04-12] MEDS: RT-ALBUTEROL SULF 2.5 MG/3 ML PRE-MIX VIAL INH SCH ×6 (01:28→22:24)
[2020-04-12] MEDS: inSUlin ASPART (NovoLOG) 1 UNIT/0.01 ML (CHARGE PER UNIT) SC SCH ×4 (05:41→20:26)
[2020-04-12 05:52] LABS: BASOPHILS % (AUTO) 0 % (0-10); EOSINOPHILS # (AUTO) 0.2 10^3/uL (0.0-0.3); EOSINOPHILS % (AUTO) 2 % (0-10); HEMATOCRIT 27 % (35-52); HEMOGLOBIN 9.1 G/DL (11.5-16.0); LYMPHOCYTES # (AUTO) 1.1 X 10^3 (1.0-4.0); LYMPHOCYTES % (AUTO) 17 % (12-44); MEAN CORPUSCULAR HEMOGLOBIN 29 PG (25-34); MEAN CORPUSCULAR HGB CONC 33 G/DL (32-36); MEAN CORPUSCULAR VOLUME 87 FL (80-99); MEAN PLATELET VOLUME 9.4 FL (7.4-10.4); MONOCYTES # (AUTO) 0.6 X 10^3 (0.0-1.0); MONOCYTES % (AUTO) 8 % (0-12); NEUTROPHILS % (AUTO) 73 % (42-75); PLATELET COUNT 160 10^3/uL (130-400); RED CELL DISTRIBUTION WIDTH 12.2 % (10.0-14.5); WHITE BLOOD COUNT 6.9 10^3/uL (4.3-11.0)
[2020-04-12 06:09] LABS: ALBUMIN 3.2 GM/DL (3.2-4.5); CHLORIDE 105 MMOL/L (98-107); POTASSIUM 3.6 MMOL/L (3.6-5.0); SODIUM 140 MMOL/L (135-145)
--- NOTE | 2020-04-12 06:09 | Progress Note ---
Standard Progress Note Progress Notes/Assess & Plan Date Seen by a Provider: April 12, 2020 Time Seen by a Provider: 06:07 Progress/Assessment & Plan No complaints Vital Signs Date Time Temp Pulse Resp B/P (MAP) Pulse Ox O2 Delivery O2 Flow Rate FiO2 04/11/20 06:39 36.8 85 16 158/68 (98) 95 Nasal Cannula 2.00 04/10/20 21:00 94 Nasal Cannula 2.00 04/10/20 17:05 37.0 85 18 137/65 (89) 94 Nasal Cannula 2.00 04/10/20 16:05 94 Nasal Cannula 2.00 04/10/20 13:15 37.2 80 18 125/63 (83) 88 Room Air 04/10/20 13:14 37.2 80 18 125/63 94 Nasal Cannula 2.00 I & O 04/11/20 07:00 Intake Total 600 ml Balance 600 ml Laboratory Tests Test 04/10/20 15:24 04/10/20 20:34 04/11/20 05:17 04/11/20 05:24 Range/Units Glucometer 176 H 164 H 132 H 70-110 MG/DL White Blood Count 7.6 4.3-11.0 10^3/uL Red Blood Count 3.41 L 4.35-5.85 10^6/uL Hemoglobin 9.9 L 11.5-16.0 G/DL Hematocrit 30 L 35-52 % Mean Corpuscular Volume 88 80-99 FL Mean Corpuscular Hemoglobin 29 25-34 PG Mean Corpuscular Hemoglobin Concent 33 32-36 G/DL Red Cell Distribution Width 12.1 10.0-14.5 % Platelet Count 150 130-400 10^3/uL Mean Platelet Volume 9.4 7.4-10.4 FL Neutrophils (%) (Auto) 75 42-75 % Lymphocytes (%) (Auto) 14 12-44 % Monocytes (%) (Auto) 8 0-12 % Eosinophils (%) (Auto) 2 0-10 % Basophils (%) (Auto) 0 0-10 % Neutrophils # (Auto) 5.8 1.8-7.8 X 10^3 Lymphocytes # (Auto) 1.1 1.0-4.0 X 10^3 Monocytes # (Auto) 0.6 0.0-1.0 X 10^3 Eosinophils # (Auto) 0.2 0.0-0.3 10^3/uL Basophils # (Auto) 0.0 0.0-0.1 10^3/uL Sodium Level 136 135-145 MMOL/L Potassium Level 3.7 3.6-5.0 MMOL/L Chloride Level 103 98-107 MMOL/L Carbon Dioxide Level 25 21-32 MMOL/L Anion Gap 8 5-14 MMOL/L Blood Urea Nitrogen 10 7-18 MG/DL Creatinine 0.68 0.60-1.30 MG/DL Estimat Glomerular Filtration Rate > 60 BUN/Creatinine Ratio 15 Glucose Level 126 H 70-105 MG/DL Calcium Level 8.0 L 8.5-10.1 MG/DL Corrected Calcium 8.6 8.5-10.1 MG/DL Total Bilirubin 1.0 0.1-1.0 MG/DL Aspartate Amino Transf (AST/SGOT) 23 5-34 U/L Alanine Aminotransferase (ALT/SGPT) 13 0-55 U/L Alkaline Phosphatase 56 40-136 U/L Total Protein 5.6 L 6.4-8.2 GM/DL Albumin 3.2 3.2-4.5 GM/DL RLE--incision clean and dry. No calf tenderness. Neg Jairo's s/p RTKA doing well continue PT/OT Final Diagnosis no complaints Vital Signs Date Time Temp Pulse Resp B/P (MAP) Pulse Ox O2 Delivery O2 Flow Rate FiO2 04/12/20 01:28 93 Nasal Cannula 1.00 04/11/20 22:20 97 Nasal Cannula 3.00 04/11/20 21:35 Nasal Cannula 3.00 04/11/20 18:14 95 Nasal Cannula 3.00 04/11/20 17:59 94 Nasal Cannula 3.00 04/11/20 17:56 38.2 103 18 138/58 (84) 88 Room Air 04/11/20 09:00 Room Air 04/11/20 06:39 36.8 85 16 158/68 (98) 95 Nasal Cannula 2.00 I & O 04/12/20 07:00 Intake Total 1220 ml Balance 1220 ml Laboratory Tests Test 04/11/20 11:19 04/11/20 15:49 04/11/20 18:00 04/11/20 18:10 Range/Units Glucometer 148 H 151 H 70-110 MG/DL Blood Gas Puncture Site RT RAD Blood Gas Patient Temperature 38.2 Arterial Blood pH 7.44 H 7.37-7.43 Arterial Blood Partial Pressure CO2 41 35-45 MMHG Arterial Blood Partial Pressure O2 87 79-93 MMHG Arterial Blood HCO3 27 23-27 MMOL/L Arterial Blood Total CO2 28.3 21.0-31.0 MMOL/L Arterial Blood Oxygen Saturation 97 94-100 % Arterial Blood Base Excess 3.5 H -2.5-2.5 MMOL/L Al Test YES-POS Blood Gas Ventilator Setting NO Blood Gas Inspired Oxygen 3 White Blood Count 9.4 4.3-11.0 10^3/uL Red Blood Count 3.49 L 4.35-5.85 10^6/uL Hemoglobin 10.2 L 11.5-16.0 G/DL Hematocrit 30 L 35-52 % Mean Corpuscular Volume 86 80-99 FL Mean Corpuscular Hemoglobin 29 25-34 PG Mean Corpuscular Hemoglobin Concent 34 32-36 G/DL Red Cell Distribution Width 12.2 10.0-14.5 % Platelet Count 180 130-400 10^3/uL Mean Platelet Volume 9.2 7.4-10.4 FL Neutrophils (%) (Auto) 81 H 42-75 % Lymphocytes (%) (Auto) 12 12-44 % Monocytes (%) (Auto) 7 0-12 % Eosinophils (%) (Auto) 1 0-10 % Basophils (%) (Auto) 0 0-10 % Neutrophils # (Auto) 7.6 1.8-7.8 X 10^3 Lymphocytes # (Auto) 1.1 1.0-4.0 X 10^3 Monocytes # (Auto) 0.6 0.0-1.0 X 10^3 Eosinophils # (Auto) 0.1 0.0-0.3 10^3/uL Basophils # (Auto) 0.0 0.0-0.1 10^3/uL Sodium Level 136 135-145 MMOL/L Potassium Level 3.6 3.6-5.0 MMOL/L Chloride Level 101 98-107 MMOL/L Carbon Dioxide Level 25 21-32 MMOL/L Anion Gap 10 5-14 MMOL/L Blood Urea Nitrogen 11 7-18 MG/DL Creatinine 0.69 0.60-1.30 MG/DL Estimat Glomerular Filtration Rate > 60 BUN/Creatinine Ratio 16 Glucose Level 156 H 70-105 MG/DL Lactic Acid Level 0.74 0.50-2.00 MMOL/L Calcium Level 8.1 L 8.5-10.1 MG/DL Corrected Calcium 8.5 8.5-10.1 MG/DL Total Bilirubin 0.5 0.1-1.0 MG/DL Aspartate Amino Transf (AST/SGOT) 29 5-34 U/L Alanine Aminotransferase (ALT/SGPT) 18 0-55 U/L Alkaline Phosphatase 58 40-136 U/L B-Type Natriuretic Peptide 169.5 H <100.0 PG/ML Total Protein 6.0 L 6.4-8.2 GM/DL Albumin 3.5 3.2-4.5 GM/DL Procalcitonin 0.09 <0.10 NG/ML Test 04/11/20 20:54 04/12/20 05:37 04/12/20 05:38 Range/Units Glucometer 176 H 127 H 70-110 MG/DL White Blood Count 6.9 4.3-11.0 10^3/uL Red Blood Count 3.15 L 4.35-5.85 10^6/uL Hemoglobin 9.1 L 11.5-16.0 G/DL Hematocrit 27 L 35-52 % Mean Corpuscular Volume 87 80-99 FL Mean Corpuscular Hemoglobin 29 25-34 PG Mean Corpuscular Hemoglobin Concent 33 32-36 G/DL Red Cell Distribution Width 12.2 10.0-14.5 % Platelet Count 160 130-400 10^3/uL Mean Platelet Volume 9.4 7.4-10.4 FL Neutrophils (%) (Auto) 73 42-75 % Lymphocytes (%) (Auto) 17 12-44 % Monocytes (%) (Auto) 8 0-12 % Eosinophils (%) (Auto) 2 0-10 % Basophils (%) (Auto) 0 0-10 % Neutrophils # (Auto) 5.0 1.8-7.8 X 10^3 Lymphocytes # (Auto) 1.1 1.0-4.0 X 10^3 Monocytes # (Auto) 0.6 0.0-1.0 X 10^3 Eosinophils # (Auto) 0.2 0.0-0.3 10^3/uL Basophils # (Auto) 0.0 0.0-0.1 10^3/uL RLE--dressing intact. No calf tenderness. Neg Jairo's s/p RTKA continue PT and OT Focused Exam Lactate Level 04/11/20 18:10: Lactic Acid Level 0.74 LONNY MCLAIN MD April 12, 2020 06:09
[2020-04-12 06:11] LABS: GLUCOSE 124 MG/DL (70-105); TOTAL PROTEIN 5.6 GM/DL (6.4-8.2)
[2020-04-12 06:12] LABS: CARBON DIOXIDE 26 MMOL/L (21-32)
[2020-04-12 06:13] LABS: BILIRUBIN,TOTAL 0.6 MG/DL (0.1-1.0)
[2020-04-12 06:15] LABS: ALKALINE PHOSPHATASE 50 U/L (40-136); CREATININE SERUM 0.73 MG/DL (0.60-1.30); GFR ESTIMATED > 60
[2020-04-12 06:16] LABS: BUN/CREATININE RATIO 12
[2020-04-12 06:18] LABS: ALANINE AMINOTRANSFERASE 16 U/L (0-55)
[2020-04-12] MEDS: MULTIVIT W/MINERALS TAB (THERAGRAN M) PO SCH (06:28)
[2020-04-12] MEDS: CATHETER FLUSH 10 ML SYR IV SCH ×3 (06:29→22:12)
[2020-04-12 07:00] VITALS: BP 110/63
[2020-04-12] MEDS: IRON SUCROSE 200 MG/10 ML (VENOFER) VIAL IV SCH (08:15)
[2020-04-12] MEDS: ASPIRIN E.C. 81 MG (ECOTRIN) TAB PO SCH (08:15)
[2020-04-12] MEDS: ENOXAPARIN 40 MG/0.4 ML (LOVENOX) SYR SC SCH (08:15)
[2020-04-12] MEDS: PIPERACILLIN/TAZOBACTAM (BULK) 4.5 GM in NS (IVPB) 100 ML IV SCH (08:16)
[2020-04-12] MEDS: DOCUSATE SODIUM 100 MG (COLACE) CAP PO SCH ×2 (08:16→20:21)
[2020-04-12] MEDS: polyethylene glycoL POWDER 17 GM (MIRALAX) PACK PO SCH ×2 (08:16→20:26)
[2020-04-12] MEDS: SENNA W/DOCUSATE (SENOKOT S) TABLET PO SCH ×2 (08:16→20:26)
--- NOTE | 2020-04-12 09:58 | Diagnostic Imaging Report ---
INDICATION: Fever, post knee arthroplasty. TECHNIQUE: Two view chest 9:18 AM CORRELATION STUDY: 04/11/2020 FINDINGS: Given differences in technique, heart size, mediastinum, and vasculature overall stable. Slight increased density right para mediastinal region unchanged. Lung uribe overall appear clear. No infiltrate. Visualized osseous structures are unremarkable. IMPRESSION: 1. Stable chest demonstrates no acute abnormality. Dictated by: Dictated on workstation # [id number]
--- NOTE | 2020-04-12 12:37 | Physical Therapy Daily Note ---
PT Daily Note-Current Subjective Pt sitting in recliner upon arrival. Pt agrees to PT for ambulation. Mental Status Patient Orientation: Person, Place, Situation Attachments: IV Transfers SCALE: Activities may be completed with or without assistive devices. 5-Ujgbbgitrv-tasndix completes the activity by him/herself with no assistance from a helper. 5-Set-up or Clean-up Assistance-helper sets up or cleans up; patient completes activity. [place] assists only prior to or following the activity. 4-Supervision or Touching Assistance-helper provides verbal cues and/or touching/steadying and/or contact guard assistance as patient completes activity. Assistance may be provided throughout the activity or intermittently. 3-Partial/Moderate Assistance-helper does LESS THAN HALF the effort. [place] lifts, holds or supports trunk or limbs, but provides less than half the effort. 2-Substantial/Maximal Assistance-helper does MORE THAN HALF the effort. [place] lifts or holds trunk or limbs and provides more than half the effort. 0-Afnffsrlf-kjlpll does ALL the effort. Patient does none of the effort to complete the activity. Or, the assistance of 2 or more helpers is required for the patient to complete the activity. If activity was not attempted, code reason: 7-Patient Refused. 9-Not Applicable-not attempted and the patient did not perform the activity before the current illness, exacerbation or injury. 10-Not Attempted due to Environmental Limitations-(lack of equipment, weather restraints, etc.). 88-Not Attempted due to Medical Conditions or Safety Concerns. Sit to Stand (QC): 5 Toilet Transfer (QC): 5 Weight Bearing Right Lower Extremity: Right Weight Bearing/Tolerated Left Lower Extremity: Left Full Weight Bearing Gait Training Does the Patient Walk?: Yes Distance: 100' x2 Walk 10 feet (QC): 5 Walk 50 ft with 2 Turns(QC): 5 Walk 150 ft (QC): 5 Gait Persons Needed: 1 Gait Assistive Device: FWW Exercises Supine Ex: Ankle pumps, Quad Set, Glut sets, Heel Slides Supine Reps: 15 Treatments Pt transfers to standing from recliner to use restroom. Pt doffs/don undergarment independently while sitting. Pt then ambulates in hallway before returning to recliner, reviews Supine Ex at end of Rx. Pt has all needs met, call light in hand. Assessment Current Status: Good Progress Pt tolerates Rx well. PT Nursing Home Goals Nursing Home Goals PT Nursing Home Goals Time Frame: April 21, 2020 Roll Left & Right (QC): 6 Sit to Lying (QC): 6 Lying-Sitting on Side/Bed(QC): 6 Sit to Stand (QC): 6 Chair/Feu-nt-Sdimk Xfer(QC): 6 Toilet Transfer (QC): 6 Car Transfer (QC): 6 Does the Patient Walk: Yes Walk 10 feet (QC): 6 Walk 50ft with 2 Turns (QC): 6 Walk 150 ft (QC): 6 Walking 10ft on Uneven Surface: 6 1 Step (curb) (QC): 6 4 Steps (QC): 6 12 Steps (QC): 6 Picking up an Object (QC): 6 Does the Pt use WC or Scooter?: No Wheel 50 feet with 2 turns (QC: 9 Wheel 150 feet: 9 PT Plan Problem List Problem List: Activity Tolerance Treatment/Plan Treatment Plan: Continue Plan of Care Treatment Plan: Bed Mobility, Concurrent Therapy, Education, Functional Activity [place], Functional Strength, Group Therapy, Gait, Safety, Therapeutic Exercise, Transfers Treatment Duration: April 21, 2020 Frequency: 6 times per week Estimated Hrs Per Day: 1.5 hours per day Patient and/or Family Agrees t: Yes Safety Risks/Education Patient Education: Gait Training, Correct Positioning, Safety Issues Teaching Recipient: Patient Teaching Methods: Discussion Response to Teaching: Verbalize Understanding Time/GCodes Time In: 1130 Time Out: 1155 Total Billed Treatment Time: 25 Total Billed Treatment 1, GT (15m) & EX (10m) AGGIE TRAN PTA April 12, 2020 12:37
--- NOTE | 2020-04-12 13:38 | PM&R Progress Note ---
Subjective HPI/CC On Admission Date Seen by Provider: April 12, 2020 Time Seen by Provider: 13:30 Subjective/Events-last exam CXR and repeat revealed no infiltrate Incision looks good Slept ok last night Nausea resolved Wheezing resolved that I noted yesterday prompting Nebs and O2 and septic w/u which revealed no evidence of confirmed PNA IS used No more fever noted O2 not required now BM++ Checked meds and labs Conferred with RN Reviewed therapy notes Review of Systems General: Fatigue Musculoskeletal: leg pain Focused Exam Lactate Level 04/11/20 18:10: Lactic Acid Level 0.74 Objective Exam Vital Signs Vital Signs Date Time Temp Pulse Resp B/P (MAP) Pulse Ox O2 Delivery O2 Flow Rate FiO2 04/12/20 18:11 37.6 95 18 111/63 (79) 91 Nasal Cannula 2.00 Capillary Refill : Less Than 3 SecondsLess Than 3 Seconds General Appearance: No Apparent Distress, WD/WN, Chronically ill, Other (fatigued) HEENT: PERRL/EOMI, Normal ENT Inspection, Pharynx Normal Neck: Full Range of Motion, Normal Inspection, Non Tender, Supple, Carotid Bruit Respiratory: Chest Non Tender, Lungs Clear, Normal Breath Sounds, No Accessory Muscle Use, No Respiratory Distress Cardiovascular: Regular Rate, Rhythm, No Edema, No Gallop, No JVD, No Murmur, Normal Peripheral Pulses Gastrointestinal: Normal Bowel Sounds, No Organomegaly, No Pulsatile Mass, Non Tender, Soft Back: Normal Inspection, No CVA Tenderness, No Vertebral Tenderness Extremity: Normal Capillary Refill, Normal Inspection, Normal Range of Motion (except right knee), Non Tender, No Calf Tenderness, No Pedal Edema Neurologic/Psychiatric: Alert, Oriented x3, No Motor/Sensory Deficits, Normal Mood/Affect, 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 FIM Transfers Therapy Code Descriptions/Definitions Functional [place] Measure: 0=Not Assessed/NA 4=Minimal Assistance 1=Total Assistance 5=Supervision or Setup 2=Maximal Assistance 6=Modified [place] 3=Moderate Assistance 7=Complete IndependenceSCALE: Activities may be completed with or without assistive devices. 2-Jyfvzzesyv-knaymbm completes the activity by him/herself with no assistance from a helper. 5-Set-up or Clean-up Assistance-helper sets up or cleans up; patient completes activity. [place] assists only prior to or following the activity. 4-Supervision or Touching Assistance-helper provides verbal cues and/or touching/steadying and/or contact guard assistance as patient completes activi ty. Assistance may be provided throughout the activity or intermittently. 3-Partial/Moderate Assistance-helper does LESS THAN HALF the effort. [place] lifts, holds or supports trunk or limbs, but provides less than half the effort. 2-Substantial/Maximal Assistance-helper does MORE THAN HALF the effort. [place] lifts or holds trunk or limbs and provides more than half the effort. 8-Fbbnokqwj-bwlzlx does ALL the effort. Patient does none of the effort to complete the activity. Or, the assistance of 2 or more helpers is required for the patient to complete the activity. If activity was not attempted, code reason: 7-Patient Refused. 9-Not Applicable-not attempted and the patient did not perform the activity before the current illness, exacerbation or injury. 10-Not Attempted due to Environmental Limitations-(lack of equipment, weather restraints, etc.). 88-Not Attempted due to Medical Conditions or Safety Concerns. Roll Left to Right (QC): 6 Sit to Lying (QC): 5 Sit to Stand (QC): 5 Chair/Pyj-ey-Fqgyl Xfer(QC): 5 Car Transfer (QC): 4 Gait Training Does the Patient Walk?: Yes Distance: 100' x2 Walk 10 feet (QC): 5 Walk 50 ft with 2 Turns(QC): 5 Walk 150 ft (QC): 5 Walking 10ft/uneven surface-QC: 88 Gait Persons Needed: 1 Gait Assistive Device: FWW Wheelchair Training Does the Pt Use a Wheelchair?: No Wheel 50 ft with 2 turns (QC): 9 Wheel 150 ft (QC): 9 Stair Training 1 Step (curb) (QC): 88 4 Steps (QC): 88 12 Steps (QC): 88 Balance Picking up an Object (QC): 88 ADL-Treatment Eating (QC): 6 Oral Hygiene (QC): 5 Shower/Bathe Self (QC): 7 (Pt. declines bathing.) Upper Body Dressing (QC): 5 Lower Body Dressing (QC): 3 (Min assist to don shorts.) On/Off Footwear (QC): 3 Toileting Hygiene (QC): 5 Toilet Transfer (QC): 5 Assessment/Plan Assessment and Plan Assess & Plan/Chief Complaint Assessment: s/p right TKA POD # 3 Post op anemia Hypoxia requiring O2 post op now resolved Constipation Arthritis Nausea Fever with hypoxia now resolved Bronchitis changed IV abx to PO abx Plan: Pain control BM regimen O2 Monitor closely IRF protocol Abx ePO Nebs (1) Status post right knee replacement (2) Hypoxia (3) Constipation (4) Arthritis (5) Postoperative anemia WANDA ORBISON DO April 12, 2020 13:38
[2020-04-12 18:11] VITALS: BP 111/63
[2020-04-12] MEDS: CEFDINIR 300 MG (OMNICEF) CAP PO SCH (20:25)
[2020-04-13] MEDS: RT-ALBUTEROL SULF 2.5 MG/3 ML PRE-MIX VIAL INH SCH ×6 (02:10→21:39)
[2020-04-13] MEDS: ALPRAZolam 0.25 MG (XANAX) TAB PO PRN ×2 (02:51→21:52)
[2020-04-13 05:11] VITALS: BP 159/69
[2020-04-13] MEDS: inSUlin ASPART (NovoLOG) 1 UNIT/0.01 ML (CHARGE PER UNIT) SC SCH ×4 (05:32→21:50)
[2020-04-13] MEDS: CATHETER FLUSH 10 ML SYR IV SCH ×3 (06:18→20:12)
[2020-04-13] MEDS: MULTIVIT W/MINERALS TAB (THERAGRAN M) PO SCH (06:26)
[2020-04-13] MEDS: DOCUSATE SODIUM 100 MG (COLACE) CAP PO SCH ×2 (09:59→20:11)
[2020-04-13] MEDS: ENOXAPARIN 40 MG/0.4 ML (LOVENOX) SYR SC SCH (09:59)
[2020-04-13] MEDS: CEFDINIR 300 MG (OMNICEF) CAP PO SCH ×2 (09:59→20:11)
[2020-04-13] MEDS: ASPIRIN E.C. 81 MG (ECOTRIN) TAB PO SCH (09:59)
[2020-04-13] MEDS: polyethylene glycoL POWDER 17 GM (MIRALAX) PACK PO SCH ×2 (10:01→20:12)
[2020-04-13] MEDS: SENNA W/DOCUSATE (SENOKOT S) TABLET PO SCH ×2 (10:01→20:12)
--- NOTE | 2020-04-13 10:27 | Progress Note ---
Standard Progress Note Progress Notes/Assess & Plan Date Seen by a Provider: April 13, 2020 Time Seen by a Provider: 10:26 Progress/Assessment & Plan No complaints Vital Signs Date Time Temp Pulse Resp B/P (MAP) Pulse Ox O2 Delivery O2 Flow Rate FiO2 04/11/20 06:39 36.8 85 16 158/68 (98) 95 Nasal Cannula 2.00 04/10/20 21:00 94 Nasal Cannula 2.00 04/10/20 17:05 37.0 85 18 137/65 (89) 94 Nasal Cannula 2.00 04/10/20 16:05 94 Nasal Cannula 2.00 04/10/20 13:15 37.2 80 18 125/63 (83) 88 Room Air 04/10/20 13:14 37.2 80 18 125/63 94 Nasal Cannula 2.00 I & O 04/11/20 07:00 Intake Total 600 ml Balance 600 ml Laboratory Tests Test 04/10/20 15:24 04/10/20 20:34 04/11/20 05:17 04/11/20 05:24 Range/Units Glucometer 176 H 164 H 132 H 70-110 MG/DL White Blood Count 7.6 4.3-11.0 10^3/uL Red Blood Count 3.41 L 4.35-5.85 10^6/uL Hemoglobin 9.9 L 11.5-16.0 G/DL Hematocrit 30 L 35-52 % Mean Corpuscular Volume 88 80-99 FL Mean Corpuscular Hemoglobin 29 25-34 PG Mean Corpuscular Hemoglobin Concent 33 32-36 G/DL Red Cell Distribution Width 12.1 10.0-14.5 % Platelet Count 150 130-400 10^3/uL Mean Platelet Volume 9.4 7.4-10.4 FL Neutrophils (%) (Auto) 75 42-75 % Lymphocytes (%) (Auto) 14 12-44 % Monocytes (%) (Auto) 8 0-12 % Eosinophils (%) (Auto) 2 0-10 % Basophils (%) (Auto) 0 0-10 % Neutrophils # (Auto) 5.8 1.8-7.8 X 10^3 Lymphocytes # (Auto) 1.1 1.0-4.0 X 10^3 Monocytes # (Auto) 0.6 0.0-1.0 X 10^3 Eosinophils # (Auto) 0.2 0.0-0.3 10^3/uL Basophils # (Auto) 0.0 0.0-0.1 10^3/uL Sodium Level 136 135-145 MMOL/L Potassium Level 3.7 3.6-5.0 MMOL/L Chloride Level 103 98-107 MMOL/L Carbon Dioxide Level 25 21-32 MMOL/L Anion Gap 8 5-14 MMOL/L Blood Urea Nitrogen 10 7-18 MG/DL Creatinine 0.68 0.60-1.30 MG/DL Estimat Glomerular Filtration Rate > 60 BUN/Creatinine Ratio 15 Glucose Level 126 H 70-105 MG/DL Calcium Level 8.0 L 8.5-10.1 MG/DL Corrected Calcium 8.6 8.5-10.1 MG/DL Total Bilirubin 1.0 0.1-1.0 MG/DL Aspartate Amino Transf (AST/SGOT) 23 5-34 U/L Alanine Aminotransferase (ALT/SGPT) 13 0-55 U/L Alkaline Phosphatase 56 40-136 U/L Total Protein 5.6 L 6.4-8.2 GM/DL Albumin 3.2 3.2-4.5 GM/DL RLE--incision clean and dry. No calf tenderness. Neg Jairo's s/p RTKA doing well continue PT/OT Final Diagnosis Patient bathing feeling better and would like to go home continue PT and OT Focused Exam Lactate Level 04/11/20 18:10: Lactic Acid Level 0.74 LONNY MCLAIN MD April 13, 2020 10:27
--- NOTE | 2020-04-13 10:35 | NUR ---
RT HERE. PATIENT ON ROOM AIR AT THIS TIME. PATIENT IS INDEPENDENT IN ROOM. GOT DRESSED ON OWN, RETRIEVED CLOTHING PER SELF, AND BR INDEPENDENT . DR MCLAIN MADE ROUNDS THIS A.M., NO NEW ORDERS. PATIENT VERBALIZES WANTING TO GO HOME. DENIES ANY C/O. CONT TO MONITOR.
--- NOTE | 2020-04-13 11:26 | PM&R Progress Note ---
Subjective HPI/CC On Admission Date Seen by Provider: April 13, 2020 Time Seen by Provider: 11:30 Subjective/Events-last exam CXR and repeat revealed no infiltrate, Omnicef tolerated Incision looks good Slept ok last night Nausea resolved Wheezing resolved IS used No more fever noted O2 not required now BM++ Wants to DC home soon Checked meds and labs Conferred with RN Reviewed therapy notes Review of Systems General: Fatigue Musculoskeletal: leg pain Focused Exam Lactate Level 04/11/20 18:10: Lactic Acid Level 0.74 Objective Exam Vital Signs Vital Signs Date Time Temp Pulse Resp B/P (MAP) Pulse Ox O2 Delivery O2 Flow Rate FiO2 04/13/20 13:21 90 Room Air 04/13/20 06:25 2.00 04/13/20 05:11 37.1 94 16 159/69 (99) Capillary Refill : Less Than 3 SecondsLess Than 3 Seconds General Appearance: No Apparent Distress, WD/WN, Chronically ill, Other (fatigued) HEENT: PERRL/EOMI, Normal ENT Inspection, Pharynx Normal Neck: Full Range of Motion, Normal Inspection, Non Tender, Supple, Carotid Bruit Respiratory: Chest Non Tender, Lungs Clear, Normal Breath Sounds, No Accessory Muscle Use, No Respiratory Distress Cardiovascular: Regular Rate, Rhythm, No Edema, No Gallop, No JVD, No Murmur, Normal Peripheral Pulses Gastrointestinal: Normal Bowel Sounds, No Organomegaly, No Pulsatile Mass, Non Tender, Soft Back: Normal Inspection, No CVA Tenderness, No Vertebral Tenderness Extremity: Normal Capillary Refill, Normal Inspection, Normal Range of Motion (except right knee), Non Tender, No Calf Tenderness, No Pedal Edema Neurologic/Psychiatric: Alert, Oriented x3, No Motor/Sensory Deficits, Normal Mood/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 FIM Transfers Therapy Code Descriptions/Definitions Functional [facility] Measure: 0=Not Assessed/NA 4=Minimal Assistance 1=Total Assistance 5=Supervision or Setup 2=Maximal Assistance 6=Modified [facility] 3=Moderate Assistance 7=Complete IndependenceSCALE: Activities may be completed with or without assistive devices. 5-Aoyluxdgtm-xjqtkmd completes the activity by him/herself with no assistance from a helper. 5-Set-up or Clean-up Assistance-helper sets up or cleans up; patient completes activity. [place] assists only prior to or following the activity. 4-Supervision or Touching Assistance-helper provides verbal cues and/or to uching/steadying and/or contact guard assistance as patient completes activity. Assistance may be provided throughout the activity or intermittently. 3-Partial/Moderate Assistance-helper does LESS THAN HALF the effort. [place] lifts, holds or supports trunk or limbs, but provides less than half the effort. 2-Substantial/Maximal Assistance-helper does MORE THAN HALF the effort. [place] lifts or holds trunk or limbs and provides more than half the effort. 9-Bprymmjmo-cfxlzv does ALL the effort. Patient does none of the effort to complete the activity. Or, the assistance of 2 or more helpers is required for the patient to complete the activity. If activity was not attempted, code reason: 7-Patient Refused. 9-Not Applicable-not attempted and the patient did not perform the activity before the current illness, exacerbation or injury. 10-Not Attempted due to Environmental Limitations-(lack of equipment, weather restraints, etc.). 88-Not Attempted due to Medical Conditions or Safety Concerns. Roll Left to Right (QC): 6 Sit to Lying (QC): 5 Sit to Stand (QC): 5 Chair/Koy-gb-Jfpul Xfer(QC): 5 Car Transfer (QC): 4 Gait Training Does the Patient Walk?: Yes Distance: 100' x2 Walk 10 feet (QC): 5 Walk 50 ft with 2 Turns(QC): 5 Walk 150 ft (QC): 5 Walking 10ft/uneven surface-QC: 88 Gait Persons Needed: 1 Gait Assistive Device: FWW Wheelchair Training Does the Pt Use a Wheelchair?: No Wheel 50 ft with 2 turns (QC): 9 Wheel 150 ft (QC): 9 Stair Training 1 Step (curb) (QC): 88 4 Steps (QC): 88 12 Steps (QC): 88 Balance Picking up an Object (QC): 88 ADL-Treatment Eating (QC): 6 Oral Hygiene (QC): 5 Shower/Bathe Self (QC): 7 (Pt. declines bathing.) Upper Body Dressing (QC): 5 Lower Body Dressing (QC): 3 (Min assist to don shorts.) On/Off Footwear (QC): 3 Toileting Hygiene (QC): 5 Toilet Transfer (QC): 5 Assessment/Plan Assessment and Plan Assess & Plan/Chief Complaint Assessment: s/p right TKA POD # 4 Post op anemia Hypoxia requiring O2 post op now resolved Constipation Arthritis Nausea Fever with hypoxia now resolved Bronchitis changed IV abx to PO abx Plan: Pain control BM regimen O2 Monitor closely IRF protocol Abx PO Nebs DC soon (1) Status post right knee replacement (2) Hypoxia (3) Constipation (4) Arthritis (5) Postoperative anemia WANDA ROBISON DO April 13, 2020 11:26
[2020-04-13] MEDS ORDERED: OXYC1TAB87 PO (16:34)
[2020-04-13] MEDS ORDERED: CEFD300C3 PO (16:34)
[2020-04-13] MEDS ORDERED: SENN-20 PO (16:34)
[2020-04-13] MEDS ORDERED: ASPI-983 PO (16:34)
[2020-04-13 17:14] VITALS: BP 125/58
[2020-04-13] MEDS: oxyCODONE/APAP 5/325MG (PERCOCET 5) TABLET PO PRN (21:52)
[2020-04-14] MEDS: RT-ALBUTEROL SULF 2.5 MG/3 ML PRE-MIX VIAL INH SCH ×3 (02:40→10:04)
[2020-04-14 05:46] VITALS: BP 154/76
[2020-04-14] MEDS: CATHETER FLUSH 10 ML SYR IV SCH (05:54)
[2020-04-14] MEDS: MULTIVIT W/MINERALS TAB (THERAGRAN M) PO SCH (06:03)
[2020-04-14 06:09] LABS: BASOPHILS % (AUTO) 0 % (0-10); EOSINOPHILS # (AUTO) 0.5 10^3/uL (0.0-0.3); EOSINOPHILS % (AUTO) 7 % (0-10); HEMATOCRIT 29 % (35-52); HEMOGLOBIN 9.4 G/DL (11.5-16.0); LYMPHOCYTES # (AUTO) 1.3 X 10^3 (1.0-4.0); LYMPHOCYTES % (AUTO) 20 % (12-44); MEAN CORPUSCULAR HEMOGLOBIN 29 PG (25-34); MEAN CORPUSCULAR HGB CONC 33 G/DL (32-36); MEAN CORPUSCULAR VOLUME 87 FL (80-99); MEAN PLATELET VOLUME 9.3 FL (7.4-10.4); MONOCYTES # (AUTO) 0.6 X 10^3 (0.0-1.0); MONOCYTES % (AUTO) 8 % (0-12); NEUTROPHILS # (AUTO) 4.3 X 10^3 (1.8-7.8); NEUTROPHILS % (AUTO) 64 % (42-75); PLATELET COUNT 229 10^3/uL (130-400); RED CELL DISTRIBUTION WIDTH 12.5 % (10.0-14.5); WHITE BLOOD COUNT 6.6 10^3/uL (4.3-11.0)
[2020-04-14 06:23] LABS: ALBUMIN 3.4 GM/DL (3.2-4.5); CHLORIDE 104 MMOL/L (98-107); POTASSIUM 3.4 MMOL/L (3.6-5.0); SODIUM 139 MMOL/L (135-145)
[2020-04-14 06:24] LABS: CALCIUM 8.3 MG/DL (8.5-10.1)
[2020-04-14 06:25] LABS: GLUCOSE 136 MG/DL (70-105); TOTAL PROTEIN 6.1 GM/DL (6.4-8.2)
[2020-04-14 06:26] LABS: CARBON DIOXIDE 27 MMOL/L (21-32)
[2020-04-14 06:27] LABS: BILIRUBIN,TOTAL 0.7 MG/DL (0.1-1.0)
[2020-04-14 06:29] LABS: ALKALINE PHOSPHATASE 60 U/L (40-136); GFR ESTIMATED > 60
[2020-04-14 06:30] LABS: BUN/CREATININE RATIO 19
[2020-04-14 06:32] LABS: ALANINE AMINOTRANSFERASE 27 U/L (0-55)
[2020-04-14] MEDS: inSUlin ASPART (NovoLOG) 1 UNIT/0.01 ML (CHARGE PER UNIT) SC SCH ×2 (06:35→11:08)
[2020-04-14] MEDS: SENNA W/DOCUSATE (SENOKOT S) TABLET PO SCH (08:14)
--- NOTE | 2020-04-14 08:30 | Physical Therapy Daily Note ---
PT Daily Note-Current Subjective Patient in recliner pre tx, agrees to PT, has no complaints of pain but has some tingling on her medial right knee. Appearance Patient in recliner post tx with nurse call, phone, tray, all needs met. Mental Status Patient Orientation: Person, Place, Situation, Normal For Age Transfers SCALE: Activities may be completed with or without assistive devices. 1-Btgvqedrnu-xdnanub completes the activity by him/herself with no assistance from a helper. 5-Set-up or Clean-up Assistance-helper sets up or cleans up; patient completes activity. [place] assists only prior to or following the activity. 4-Supervision or Touching Assistance-helper provides verbal cues and/or touching/steadying and/or contact guard assistance as patient completes activity. Assistance may be provided throughout the activity or intermittently. 3-Partial/Moderate Assistance-helper does LESS THAN HALF the effort. [place] lifts, holds or supports trunk or limbs, but provides less than half the effort. 2-Substantial/Maximal Assistance-helper does MORE THAN HALF the effort. [place] lifts or holds trunk or limbs and provides more than half the effort. 7-Rxuokydfm-aasuic does ALL the effort. Patient does none of the effort to complete the activity. Or, the assistance of 2 or more helpers is required for the patient to complete the activity. If activity was not attempted, code reason: 7-Patient Refused. 9-Not Applicable-not attempted and the patient did not perform the activity before the current illness, exacerbation or injury. 10-Not Attempted due to Environmental Limitations-(lack of equipment, weather restraints, etc.). 88-Not Attempted due to Medical Conditions or Safety Concerns. Roll Left & Right (QC): 6 Sit to Lying (QC): 6 Lying to Sitting/Side of Bed(Q: 6 Sit to Stand (QC): 6 Chair/Gxa-qg-Xknsf Xfer(QC): 6 Toilet Transfer (QC): 6 Car Transfer (QC): 6 Patient performs bed mobility with independence, supine <-> sit with independence, sit <-> stand with independence, transfers independent, car transfer independent. Weight Bearing Right Lower Extremity: Right Weight Bearing/Tolerated Left Lower Extremity: Left Full Weight Bearing Gait Training Distance: 300' Walk 10 feet (QC): 6 Walk 50 ft with 2 Turns(QC): 6 Walk 150 ft (QC): 6 Walking 10ft/uneven surface-QC: 6 Gait Assistive Device: FWW Patient can ambulate 300' with a rolling walker with independence (including 50' with at least 2 turns of 90 degrees and 10' over an uneven surface). Patient ambulates slow but steady, flexed right knee. Wheelchair Training Does the Pt Use a Wheelchair?: No Stair Training Stair Training: Handrails/: 2 handrails #of Steps: 12 1 Step (curb) (QC): 4 4 Steps (QC): 4 12 Steps (QC): 4 Stairs: Pattern: Step to Patient can go up and down 12 steps using 2 handrails with SBA, cues for foot placement. Balance Picking up an Object (QC): 4 Treatments bed mobility and transfers, ambulation, stair training, gait training Assessment Current Status: Fair Progress patient is independent with most functional mobility PT Process Tech Goals Process Tech Goals PT [facility] Goals Time Frame: April 21, 2020 Roll Left & Right (QC): 6 Sit to Lying (QC): 6 Lying-Sitting on Side/Bed(QC): 6 Sit to Stand (QC): 6 Chair/Vte-fp-Igbvc Xfer(QC): 6 Toilet Transfer (QC): 6 Car Transfer (QC): 6 Does the Patient Walk: Yes Walk 10 feet (QC): 6 Walk 50ft with 2 Turns (QC): 6 Walk 150 ft (QC): 6 Walking 10ft on Uneven Surface: 6 1 Step (curb) (QC): 6 4 Steps (QC): 6 12 Steps (QC): 6 Picking up an Object (QC): 6 Does the Pt use WC or Scooter?: No Wheel 50 feet with 2 turns (QC: 9 Wheel 150 feet: 9 PT Plan Problem List Problem List: Activity Tolerance, Functional Strength, Safety, Balance, Gait, Transfer Treatment/Plan Treatment Plan: Discontinue PT (DC today ) Treatment Plan: Bed Mobility, Concurrent Therapy, Education, Functional Activity [place], Functional Strength, Group Therapy, Gait, Safety, Therapeutic Exercise, Transfers Treatment Duration: April 21, 2020 Frequency: 6 times per week Estimated Hrs Per Day: 1.5 hours per day Patient and/or Family Agrees t: Yes Safety Risks/Education Patient Education: Gait Training, Transfer Techniques, Steps, Correct Positioning, Safety Issues Teaching Recipient: Patient Teaching Methods: Demonstration, Discussion Response to Teaching: Reinforcement Needed Time/GCodes Time In: 0800 Time Out: 819 Total Billed Treatment Time: 20 Total Billed Treatment 1 visit FA 20' MAGUI LOPEZ PT April 14, 2020 08:30
[2020-04-14] MEDS: polyethylene glycoL POWDER 17 GM (MIRALAX) PACK PO SCH (08:36)
[2020-04-14] MEDS: IRON SUCROSE 200 MG/10 ML (VENOFER) VIAL IV SCH ×2 (08:36→09:27)
[2020-04-14] MEDS: ENOXAPARIN 40 MG/0.4 ML (LOVENOX) SYR SC SCH (08:36)
[2020-04-14] MEDS: DOCUSATE SODIUM 100 MG (COLACE) CAP PO SCH (08:36)
[2020-04-14] MEDS: CEFDINIR 300 MG (OMNICEF) CAP PO SCH (08:36)
[2020-04-14] MEDS: ASPIRIN E.C. 81 MG (ECOTRIN) TAB PO SCH (08:36)
--- NOTE | 2020-04-14 08:40 | Therapy Team Discharge Summary ---
Therapy Discharge Summary Discharge Recommendations Date of Discharge Physical Therapy Patient came to rehab with a right TKA. Upon evaluation patient performed bed mobility and transfers with CGA/SBA, ambulated 150' with a rolling walker with CGA/SBA. Patient has been performing bed mobility and transfer training, balance and endurance training, functional strengthening, stair training, gait training, and education. Patient has made good progress and has met all of her long-term goals except for stairs. Now, patient performs bed mobility with independence, supine <-> sit with independence, sit <-> stand with independence, transfers independent, car transfer independent, ambulate 300' with a rolling walker with independence (including 50' with at least 2 turns of 90 degrees and 10' over an uneven surface), can go up and down 12 steps using 2 handrails with SBA, and can leaf size picker an object from the floor with SBA. Patient is discharging from this facility today and will be discharged from PT at this time. Occupational Therapy Decreased Activ Tolerance, Impaired I ADL's, Impaired Self-Care Skills PT Oil Fire Specialist Goals Oil Fire Specialist Goals PT Oil Fire Specialist Goals Time Frame: April 21, 2020 Roll Left to Right (QC): 6 Sit to Lying (QC): 6 Lying-Sitting on Side/Bed(QC): 6 Sit to Stand (QC): 6 Chair/Zua-bo-Terrg Xfer(QC): 6 Car Transfer (QC): 6 Does the Patient Walk: Yes Walk 10 feet (QC): 6 Walk 10ft-Uneven Surface(QC): 6 Walk 50ft with 2 Turns (QC): 6 Walk 150 ft (QC): 6 Does the Pt use WC or Scooter?: No Wheel 50 feet with 2 turns (QC: 9 1 Step (curb) (QC): 6 4 Steps (QC): 6 12 Steps (QC): 6 Picking up an Object (QC): 6 OT Oil Fire Specialist Goals Oil Fire Specialist Goals Time Frame: April 24, 2020 Eating (QC): 6 Oral Hygiene (QC): 6 Shower/Bathe Self (QC): 5 Upper Body Dressing (QC): 6 Lower Body Dressing (QC): 6 On/Off Footwear (QC): 6 Toileting Hygiene (QC): 6 Toilet/Commode Transfer (QC): 6 Additional Goals: 1-Demonstrate ADL Tasks, 2-Verbalize Understanding, 3- ImproveStrength/[place] 1=Demonstrate adherence to instructed precautions during ADL tasks. 2=Patient will verbalize/demonstrate understanding of assistive devices/modifications for ADL. 3=Patient will improve strength/tolerance for activity to enable patient to perform ADL's. MAGUI LOPEZ PT April 14, 2020 08:40
--- NOTE | 2020-04-14 09:21 | D/C HH Face to Face Order ---
D/C Face to Face Orders Reconcile Patient Problems Problems Reviewed?: Yes Instructions for Patient Home Health Patient Instructions/FollowUp: Dr Tucker 1 week Physician to follow Patient: Garrett Discharge Diet for Home: No Restrictions Patient Problems: Right total knee replacement Goals for Patient: [place] Patient Data-Allergies,Ht & Wt Patient Allergies: Coded Allergies: No Known Drug Allergies (Unverified , 08/20/19) Home Health Need/Face to Face Date of Face to Face: April 14, 2020 Clinical Findings: Generalized weakness and fatigue, Muscle weakness, Shortness of breath, Unsteady gait I have seen Pt [id number]: Yes Discharged To: Home Diagnosis/Conditions: Right total knee replacement Patient is Homebound due to: [place] fall risk due to instabilty, Pain w/ambulation Homebound Status Due to the above stated illness, injury or surgical procedure (medical condition or diagnosis) and associated clinical findings, the patient is homebound because of his/her inability to leave home except with aid of a supportive device and/or person AND leaving the home requires a considerable and taxing effort or is medically contraindicated. Pt req the following assistanc: Walker Home Health Nursing Orders Home Health Services Order: Nursing Services, General Ledger Bookkeeper-Evaluate & Treat, Physical Therapy-Evaluate & Treat Certify Stmt I certify that this patient is under my care and that I, a nurse practitioner or a physician; a radiology practitioner assistant working with me, had a face to face encounter that - meets the physician face to face encounter requirements with this patient as dated. WANDA ROBISON DO April 14, 2020 09:21
--- NOTE | 2020-04-14 09:22 | Discharge Summary ---
Diagnosis/Chief Complaint Date of Admission April 10, 2020 at 12:35 Date of Discharge Discharge Date: April 14, 2020 Discharge Diagnosis Assessment: s/p right TKA POD # 5 Post op anemia Hypoxia requiring O2 post op now resolved Constipation resolved Arthritis Nausea Fever with hypoxia now resolved Bronchitis changed IV abx to PO abx Plan: Pain control BM regimen O2 Monitor closely IRF protocol Abx PO Nebs DC (1) Status post right knee replacement (2) Hypoxia (3) Constipation (4) Arthritis (5) Postoperative anemia Discharge Summary Discharge Physical Examination Allergies: Coded Allergies: No Known Drug Allergies (Unverified , 08/20/19) Vitals & I&Os Vital Signs Date Time Temp Pulse Resp B/P (MAP) Pulse Ox O2 Delivery O2 Flow Rate FiO2 04/14/20 14:24 36.9 80 16 154/76 92 Room Air 2.00 General Appearance: Alert, Oriented X3, Cooperative Respiratory: Clear to Auscultation Cardiovascular: Regular Rate Neuro: Normal Gait, Normal Speech, Strength at 5/5 X4 Ext Psych/Mental Status: Mental Status NL Hospital Course Was the Problem List Reviewed?: Yes Hospital Course: Pt had a brief hospital course for 5 days after she was admitted for right total knee arthroplasty. She did have an episode of fever, hypoxia, and wheezing and it was felt like she had the beginnings of early pneumonia. She was placed on Zosyn broad spectrum antibiotics along with nebulizer treatments and oxygen supplementation and close monitoring. Lactic a naa was normal, no evidence of any sepsis but she did meet criteria for close monitoring and the O2 supplementation was eventually no longer required and overall felt like she was ready for DC with close follow up with Dr. Tucker. Labs (last 24 hrs) Laboratory Tests 04/10/20 15:24: Glucometer 176H 04/10/20 20:34: Glucometer 164H 04/11/20 05:17: White Blood Count 7.6, Red Blood Count 3.41L, Hemoglobin 9.9L, Hematocrit 30L, Mean Corpuscular Volume 88, Mean Corpuscular Hemoglobin 29, Mean Corpuscular Hemoglobin Concent 33, Red Cell Distribution Width 12.1, Platelet Count 150, Mean Platelet Volume 9.4, Neutrophils (%) (Auto) 75, Lymphocytes (%) (Auto) 14, Monocytes (%) (Auto) 8, Eosinophils (%) (Auto) 2, Basophils (%) (Auto) 0, Neutrophils # (Auto) 5.8, Lymphocytes # (Auto) 1.1, Monocytes # (Auto) 0.6, Eosinophils # (Auto) 0.2, Basophils # (Auto) 0.0, Sodium Level 136, Potassium Level 3.7, Chloride Level 103, Carbon Dioxide Level 25, Anion Gap 8, Blood Urea Nitrogen 10, Creatinine 0.68, Estimat Glomerular Filtration Rate > 60, BUN/Creatinine Ratio 15, Glucose Level 126H, Calcium Level 8.0L, Corrected Calcium 8.6, Iron Level 13L, Total Bilirubin 1.0, Aspartate Amino Transf (AST/SGOT) 23, Alanine Aminotransferase (ALT/SGPT) 13, Alkaline Phosphatase 56, Total Protein 5.6L, Albumin 3.2 04/11/20 05:24: Glucometer 132H 04/11/20 11:19: Glucometer 148H 04/11/20 15:49: Glucometer 151H 04/11/20 18:00: Blood Gas Puncture Site RT RAD, Blood Gas Patient Temperature 38.2, Arterial Blood pH 7.44H, Arterial Blood Partial Pressure CO2 41, Arterial Blood Partial Pressure O2 87, Arterial Blood HCO3 27, Arterial Blood Total CO2 28.3, Arterial Blood Oxygen Saturation 97, Arterial Blood Base Excess 3.5H, Al Test YES-POS, Blood Gas Ventilator Setting NO, Blood Gas Inspired Oxygen 3 04/11/20 18:10: White Blood Count 9.4, Red Blood Count 3.49L, Hemoglobin 10.2L, Hematocrit 30L, Mean Corpuscular Volume 86, Mean Corpuscular Hemoglobin 29, Mean Corpuscular Hemoglobin Concent 34, Red Cell Distribution Width 12.2, Platelet Count 180, Mean Platelet Volume 9.2, Neutrophils (%) (Auto) 81H, Lymphocytes (%) (Auto) 12, Monocytes (%) (Auto) 7, Eosinophils (%) (Auto) 1, Basophils (%) (Auto) 0, Neutrophils # (Auto) 7.6, Lymphocytes # (Auto) 1.1, Monocytes # (Auto) 0.6, Eosinophils # (Auto) 0.1, Basophils # (Auto) 0.0, Sodium Level 136, Potassium Level 3.6, Chloride Level 101, Carbon Dioxide Level 25, Anion Gap 10, Blood Urea Nitrogen 11, Creatinine 0.69, Estimat Glomerular Filtration Rate > 60, BUN/Creatinine Ratio 16, Glucose Level 156H, Lactic Acid Level 0.74, Calcium Level 8.1L, Corrected Calcium 8.5, Total Bilirubin 0.5, Aspartate Amino Transf (AST/SGOT) 29, Alanine Aminotransferase (ALT/SGPT) 18, Alkaline Phosphatase 58, B-Type Natriuretic Peptide 169.5H, Total Protein 6.0L, Albumin 3.5, Procalcitonin 0.09 04/11/20 20:54: Glucometer 176H 04/12/20 05:37: Glucometer 127H 04/12/20 05:38: White Blood Count 6.9, Red Blood Count 3.15L, Hemoglobin 9.1L, Hematocrit 27L, Mean Corpuscular Volume 87, Mean Corpuscular Hemoglobin 29, Mean Corpuscular Hemoglobin Concent 33, Red Cell Distribution Width 12.2, Platelet Count 160, Mean Platelet Volume 9.4, Neutrophils (%) (Auto) 73, Lymphocytes (%) (Auto) 17, Monocytes (%) (Auto) 8, Eosinophils (%) (Auto) 2, Basophils (%) (Auto) 0, Neutrophils # (Auto) 5.0, Lymphocytes # (Auto) 1.1, Monocytes # (Auto) 0.6, Eosinophils # (Auto) 0.2, Basophils # (Auto) 0.0, Sodium Level 140, Potassium Level 3.6, Chloride Level 105, Carbon Dioxide Level 26, Anion Gap 9, Blood Urea Nitrogen 9, Creatinine 0.73, Estimat Glomerular Filtration Rate > 60, BUN/Cr eatinine Ratio 12, Glucose Level 124H, Calcium Level 8.0L, Corrected Calcium 8.6, Total Bilirubin 0.6, Aspartate Amino Transf (AST/SGOT) 24, Alanine Aminotransferase (ALT/SGPT) 16, Alkaline Phosphatase 50, Total Protein 5.6L, Albumin 3.2 04/12/20 10:59: Glucometer 170H 04/12/20 15:52: Glucometer 218H 04/12/20 20:21: Glucometer 124H 04/13/20 05:25: Glucometer 132H 04/13/20 10:50: Glucometer 159H 04/13/20 15:47: Glucometer 184H 04/13/20 20:20: Glucometer 164H 04/14/20 05:38: White Blood Count 6.6, Red Blood Count 3.26L, Hemoglobin 9.4L, Hematocrit 29L, Mean Corpuscular Volume 87, Mean Corpuscular Hemoglobin 29, Mean Corpuscular Hemoglobin Concent 33, Red Cell Distribution Width 12.5, Platelet Count 229, Mean Platelet Volume 9.3, Neutrophils (%) (Auto) 64, Lymphocytes (%) (Auto) 20, Monocytes (%) (Auto) 8, Eosinophils (%) (Auto) 7, Basophils (%) (Auto) 0, Neutrophils # (Auto) 4.3, Lymphocytes # (Auto) 1.3, Monocytes # (Auto) 0.6, Eosinophils # (Auto) 0.5H, Basophils # (Auto) 0.0, Sodium Level 139, Potassium Level 3.4L, Chloride Level 104, Carbon Dioxide Level 27, Anion Gap 8, Blood Urea Nitrogen 13, Creatinine 0.70, Estimat Glomerular Filtration Rate > 60, BUN/Creatinine Ratio 19, Glucose Level 136H, Calcium Level 8.3L, Corrected Calcium 8.8, Total Bilirubin 0.7, Aspartate Amino Transf (AST/SGOT) 35H, Alanine Aminotransferase (ALT/SGPT) 27, Alkaline Phosphatase 60, Total Protein 6.1L, Albumin 3.4 04/14/20 11:01: Glucometer 149H Microbiology 04/11/20 Blood Culture - Preliminary, Resulted No growth Pending Labs Microbiology Date/Time Source Procedure Growth Status 04/11/20 18:15 Peripheral Left Forearm Blood Culture - Preliminary No growth Resulted 04/11/20 18:10 Peripheral Lt Ac Blood Culture - Preliminary No growth Resulted Laboratory Tests 04/10/20 15:24: Glucometer 176 04/10/20 20:34: Glucometer 164 04/11/20 05:17: White Blood Count 7.6, Red Blood Count 3.41, Hemoglobin 9.9, Hematocrit 30, Mean Corpuscular Volume 88, Mean Corpuscular Hemoglobin 29, Mean Corpuscular He moglobin Concent 33, Red Cell Distribution Width 12.1, Platelet Count 150, Mean Platelet Volume 9.4, Neutrophils (%) (Auto) 75, Lymphocytes (%) (Auto) 14, Monocytes (%) (Auto) 8, Eosinophils (%) (Auto) 2, Basophils (%) (Auto) 0, Neutrophils # (Auto) 5.8, Lymphocytes # (Auto) 1.1, Monocytes # (Auto) 0.6, Eosinophils # (Auto) 0.2, Basophils # (Auto) 0.0, Sodium Level 136, Potassium L evel 3.7, Chloride Level 103, Carbon Dioxide Level 25, Anion Gap 8, Blood Urea Nitrogen 10, Creatinine 0.68, Estimat Glomerular Filtration Rate > 60, BUN/Creatinine Ratio 15, Glucose Level 126, Calcium Level 8.0, Corrected Calcium 8.6, Iron Level 13, Total Bilirubin 1.0, Aspartate Amino Transf (AST/SGOT) 23, Alanine Aminotransferase (ALT/SGPT) 13, Alkaline Phosphatase 56, Total Protein 5.6, Albumin 3.2 04/11/20 05:24: Glucometer 132 04/11/20 11:19: Glucometer 148 04/11/20 15:49: Glucometer 151 04/11/20 18:00: Blood Gas Puncture Site RT RAD, Blood Gas Patient Temperature 38.2, Arterial Blood pH 7.44, Arterial Blood Partial Pressure CO2 41, Arterial Blood Partial Pressure O2 87, Arterial Blood HCO3 27, Arterial Blood Total CO2 28.3, Arterial Blood Oxygen Saturation 97, Arterial Blood Base Excess 3.5, Al Test YES-POS, Blood Gas Ventilator Setting NO, Blood Gas Inspired Oxygen 3 04/11/20 18:10: White Blood Count 9.4, Red Blood Count 3.49, Hemoglobin 10.2, Hematocrit 30, Mean Corpuscular Volume 86, Mean Corpuscular Hemoglobin 29, Mean Corpuscular Hemoglobin Concent 34, Red Cell Distribution Width 12.2, Platelet Count 180, Mean Platelet Volume 9.2, Neutrophils (%) (Auto) 81, Lymphocytes (%) (Auto) 12, Monocytes (%) (Auto) 7, Eosinophils (%) (Auto) 1, Basophils (%) (Auto) 0, Neutrophils # (Auto) 7.6, Lymphocytes # (Auto) 1.1, Monocytes # (Auto) 0.6, Eosinophils # (Auto) 0.1, Basophils # (Auto) 0.0, Sodium Level 136, Potassium Level 3.6, Chloride Level 101, Carbon Dioxide Level 25, Anion Gap 10, Blood Urea Nitrogen 11, Creatinine 0.69, Estimat Glomerular Filtration Rate > 60, BUN/Creatinine Ratio 16, Glucose Level 156, Lactic Acid Level 0.74, Calcium Level 8.1, Corrected Calcium 8.5, Total Bilirubin 0.5, Aspartate Amino Transf (AST/SGOT) 29, Alanine Aminotransferase (ALT/SGPT) 18, Alkaline Phosphatase 58, B-Type Natriuretic Peptide 169.5, Total Protein 6.0, Albumin 3.5, Procalcitonin 0.09 04/11/20 20:54: Glucometer 176 04/12/20 05:37: Glucometer 127 04/12/20 05:38: White Blood Count 6.9, Red Blood Count 3.15, Hemoglobin 9.1, Hematocrit 27, Mean Corpuscular Volume 87, Mean Corpuscular Hemoglobin 29, Mean Corpuscular Hemoglobin Concent 33, Red Cell Distribution Width 12.2, Platelet Count 160, Mean Platelet Volume 9.4, Neutrophils (%) (Auto) 73, Lymphocytes (%) (Auto) 17, Monocytes (%) (Auto) 8, Eosinophils (%) (Auto) 2, Basophils (%) (Auto) 0, Neutrophils # (Auto) 5.0, Lymphocytes # (Auto) 1.1, Monocytes # (Auto) 0.6, Eosinophils # (Auto) 0.2, Basophils # (Auto) 0.0, Sodium Level 140, Potassium Level 3.6, Chloride Level 105, Carbon Dioxide Level 26, Anion Gap 9, Blood Urea Nitrogen 9, Creatinine 0.73, Estimat Glomerular Filtration Rate > 60, BUN/Creatinine Ratio 12, Glucose Level 124, Calcium Level 8.0, Corrected Calcium 8.6, Total Bilirubin 0.6, Aspartate Amino Transf (AST/SGOT) 24, Alanine Aminotransferase (ALT/SGPT) 16, Alkaline Phosphatase 50, Total Protein 5.6, Albumin 3.2 04/12/20 10:59: Glucometer 170 04/12/20 15:52: Glucometer 218 04/12/20 20:21: Glucometer 124 04/13/20 05:25: Glucometer 132 04/13/20 10:50: Glucometer 159 04/13/20 15:47: Glucometer 184 04/13/20 20:20: Glucometer 164 04/14/20 05:38: White Blood Count 6.6, Red Blood Count 3.26, Hemoglobin 9.4, Hematocrit 29, Mean Corpuscular Volume 87, Mean Corpuscular Hemoglobin 29, Mean Corpuscular Hemoglobin Concent 33, Red Cell Distribution Width 12.5, Platelet Count 229, M katelynn Platelet Volume 9.3, Neutrophils (%) (Auto) 64, Lymphocytes (%) (Auto) 20, Monocytes (%) (Auto) 8, Eosinophils (%) (Auto) 7, Basophils (%) (Auto) 0, Neutrophils # (Auto) 4.3, Lymphocytes # (Auto) 1.3, Monocytes # (Auto) 0.6, Eosinophils # (Auto) 0.5, Basophils # (Auto) 0.0, Sodium Level 139, Potassium Level 3.4, Chloride Level 104, Carbon Dioxide Level 27, Anion Gap 8, Blood Urea Nitrogen 13, Creatinine 0.70, Estimat Glomerular Filtration Rate > 60, BUN/Creatinine Ratio 19, Glucose Level 136, Calcium Level 8.3, Corrected Calcium 8.8, Total Bilirubin 0.7, Aspartate Amino Transf (AST/SGOT) 35, Alanine Aminotransferase (ALT/SGPT) 27, Alkaline Phosphatase 60, Total Protein 6.1, Albumin 3.4 04/14/20 11:01: Glucometer 149 Discharge Home Medications: Active Scripts Active Senna-Time S Tablet (Sennosides/Docusate Sodium) 1 Each Tablet 2 Ea PO BID Percocet 5-325 mg Tablet (Oxycodone HCl/Acetaminophen) 1 Each Tablet 1 Tab PO Q2HR PRN Cefdinir 300 Mg Capsule 300 Mg PO BID Aspirin EC (Aspirin) 81 Mg Tablet.dr 81 Mg PO DAILY Reported [place]-3 ([place]-3 Fatty Acids) 1,000 Mg Capsule 1,000 Mg PO DAILY Vision Vitamins (Beta-Carotene(A) W-C & E/Min) 1 Each Tablet 1 Each PO DAILY Instructions to patient/family Please see electronic discharge instructions given to patient. Diagnosis/Problems Diagnosis/Problems (1) Status post right knee replacement (2) Hypoxia (3) Constipation (4) Arthritis (5) Postoperative anemia Clinical Quality Measures DVT/VTE Risk/Contraindication: Risk Factor Score Per Nursin RFS Level Per Nursing on Admit: 3=High WANDA ROBISON DO April 14, 2020 09:22
[2020-04-14] MEDS ORDERED: KCL 10 MEQ TAB (MICRO K) PO NR (09:30)
--- NOTE | 2020-04-14 12:45 | Occupational Ther Daily Note ---
OT Current Status-Daily Note Subjective No pain reported. Appearance Pt. up in chair. Agrees to work with OT. Mental Status/Objective Patient Orientation: Person, Place, Time, Situation ADL-Treatment Therapy Code Descriptions/Definitions Functional [place] Measure: 0=Not Assessed/NA 4=Minimal Assistance 1=Total Assistance 5=Supervision or Setup 2=Maximal Assistance 6=Modified [place] 3=Moderate Assistance 7=Complete IndependenceSCALE: Activities may be completed with or without assistive devices. 0-Omwzeokgkn-tvvvlwc completes the activity by him/herself with no assistance from a helper. 5-Set-up or Clean-up Assistance-helper sets up or cleans up; patient completes activity. [place] assists only prior to or following the activity. 4-Supervision or Touching Assistance-helper provides verbal cues and/or touching/steadying and/or contact guard assistance as patient completes activity. Assistance may be provided throughout the activity or intermittently. 3-Partial/Moderate Assistance-helper does LESS THAN HALF the effort. [place] lifts, holds or supports trunk or limbs, but provides less than half the effort. 2-Substantial/Maximal Assistance-helper does MORE THAN HALF the effort. [place] lifts or holds trunk or limbs and provides more than half the effort. 9-Bisgjlble-cckkbo does ALL the effort. Patient does none of the effort to complete the activity. Or, the assistance of 2 or more helpers is required for the patient to complete the activity. If activity was not attempted, code reason: 7-Patient Refused. 9-Not Applicable-not attempted and the patient did not perform the activity before the current illness, exacerbation or injury. 10-Not Attempted due to Environmental Limitations-(lack of equipment, weather restraints, etc.). 88-Not Attempted due to Medical Conditions or Safety Concerns. Eating (QC): 6 Oral Hygiene (QC): 6 Shower/Bathe Self (QC): 5 Upper Body Dressing (QC): 6 (Pt. retrieved her clothing via walker from closet.) Lower Body Dressing (QC): 6 On/Off Footwear: 6 Toileting Hygiene (QC): 6 Toilet Transfer (QC): 6 Education OT Patient Education: Correct positioning, Modified ADL techniques, Progress toward Goal/Update tx plan, Purpose of tx/functional activities, Reviewed precautions, Rehab process Teaching Recipient: Patient Teaching Methods: Demonstration, Discussion Response to Teaching: Verbalize Understanding, Return Demonstration OT Fpc Goals Fpc Goals Time Frame: April 24, 2020 Eating (QC): 6 Oral Hygiene (QC): 6 Toileting Hygiene (QC): 6 Shower/Bathe Self (QC): 5 Upper Body Dressing (QC): 6 Lower Body Dressing (QC): 6 On/Off Footwear (QC): 6 Additional Goals: 1-Demonstrate ADL Tasks, 2-Verbalize Understanding, 3- ImproveStrength/[place] 1=Demonstrate adherence to instructed precautions during ADL tasks. 2=Patient will verbalize/demonstrate understanding of assistive devices/modifications for ADL. 3=Patient will improve strength/tolerance for activity to enable patient to perform ADL's. OT Education/Plan Problem List/Assessment Assessment: No Skilled OT Needs ID'd Discharge Recommendations Plan/Recommendations: Discharge/Goals Met Treatment Plan/Plan of Care Treatment,Training & Education: Yes Plan of Care: OTHER (No further OT warranted.) Treatment Duration: April 24, 2020 Frequency: At least 5 of 7 days/Wk (IRF) Estimated Hrs Per Day: 1.5 hours per day Agreement: Yes Rehab Potential: Good Time/GCodes Start Time: 11:05 Stop Time: 11:40 Total Time Billed (hr/min): 35 Billed Treatment Time 1, ADL x 2 LORRAINE GRIMM OT April 14, 2020 12:45
--- NOTE | 2020-04-14 12:48 | Therapy Team Discharge Summary ---
Therapy Discharge Summary Discharge Recommendations Date of Discharge 04-14-20 Therapy D/C Recommendations: Home w/ Family Support Occupational Therapy Pt. has been seen by occupational therapy to increase overall strength and independence with daily tasks. Pt. has met all goals. Pt. discharging home this date with family support, at independent/Modified independent level. No further OT needs warranted at this time. No Skilled OT Needs ID'd PT Channel Installer Goals Mcc Goals PT Mcc Goals Time Frame: April 21, 2020 Roll Left to Right (QC): 6 Sit to Lying (QC): 6 Lying-Sitting on Side/Bed(QC): 6 Sit to Stand (QC): 6 Chair/Fly-mz-Kimii Xfer(QC): 6 Car Transfer (QC): 6 Does the Patient Walk: Yes Walk 10 feet (QC): 6 Walk 10ft-Uneven Surface(QC): 6 Walk 50ft with 2 Turns (QC): 6 Walk 150 ft (QC): 6 Does the Pt use WC or Scooter?: No Wheel 50 feet with 2 turns (QC: 9 1 Step (curb) (QC): 6 4 Steps (QC): 6 12 Steps (QC): 6 Picking up an Object (QC): 6 OT Mcc Goals Mcc Goals Time Frame: April 24, 2020 Eating (QC): 6 (met) Oral Hygiene (QC): 6 (met) Shower/Bathe Self (QC): 5 (met) Upper Body Dressing (QC): 6 (met) Lower Body Dressing (QC): 6 (met) On/Off Footwear (QC): 6 (met) Toileting Hygiene (QC): 6 (met) Toilet/Commode Transfer (QC): 6 (met) Additional Goals: 1-Demonstrate ADL Tasks, 2-Verbalize Understanding, 3- ImproveStrength/[place] 1=Demonstrate adherence to instructed precautions during ADL tasks. 2=Patient will verbalize/demonstrate understanding of assistive devices/modifications for ADL. 3=Patient will improve strength/tolerance for activity to enable patient to perform ADL's. LORRAINE GRIMM OT April 14, 2020 12:48
--- NOTE | 2020-04-14 13:05 | NUR ---
CM/SS DISCHARGE Patient requested discharge to home today, physician and team agreed to this request. HHC: Coordinated with [facility] for timely service in [facility]. There are two [facility] agencies for patient's service area. Her first choice was [facility], they could not schedule her until Tuesday, unacceptable for this Tuesday discharge. DME: [facility] coordinated with patient requested agency, [facility] in [facility]. Daughter Tonie Gr will pickling operator walker and bring along with her when picking up patient. Agency understands to call Tonie once they have finalized their order/billing process. IMM2 presented, signed, charted. As noted, it was patient's request for discharge, she is dressed and ready to depart once arrangements finalized.
[2020-04-14 14:24] VITALS: BP 154/76
[2020-04-15] MEDS ORDERED: OXYC-471 PO (14:16)
--- NOTE | 2020-04-16 08:29 | Physician Query Clarification ---
PQ-Intro New Diagnosis Admission/Discharge Admission Date: April 10, 2020 at 12:35 Discharge Date: April 14, 2020 at 13:10 The medical record reflects the following clinical scenario: History/Risk Factors: S/P Rt. knee replacement Clinical Findings: Hgb 04/02 13.7, 04/10 10.2, 04/11 9.9, 04/12 9.1 Treatment: 200 mg IV Venofer, multivitamin Question: What condition best reflects the above clinical scenario? Please document a response in the Progress Noter or Discharge Summary. 1. acute blood loss anemia s/p Rt. TKR 2. postop anemia 3. Other, with explanation of the clinical findings. 4. Clinically undetermined, no explanation for the clinical findings. PHYSICIAN RESPONSE What condition reflects above: 1 Please remember a lack of response to the above will prompt a phone page by CDI/Coding staff. In responding to this query, please exercise your independent professional judgment. The purpose of this communication is to more accurately reflect the complexity of your patients condition. The fact that a question is asked does not imply that any particular answer is desired or expected. Thank you for your timely response to this clarification. Requestors name: Ingrid THIS PHYSICIAN QUERY FORM IS A PERMANENT PART OF THE MEDICAL RECORD INGRID ALMAGUER April 16, 2020 08:29 WANDA ROBISON DO April 16, 2020 09:35
--- NOTE | 2020-04-16 08:44 | Physician Query Clarification ---
PQ-Intro New Diagnosis Admission/Discharge Admission Date: April 10, 2020 at 12:35 Discharge Date: April 14, 2020 at 13:10 The medical record reflects the following clinical scenario: History/Risk Factors: S/P Rt TKR Clinical Findings: joint pain rt knee Treatment: Rt. TKR Question: What condition best reflects the above clinical scenario? Please document a response in the Progress Noter or Discharge Summary. 1. Rt. knee osteoarthritis s/p Rt TKR 2. S/P Rt TKR underlying cause unknown 3. Other, with explanation of the clinical findings. 4. Clinically undetermined, no explanation for the clinical findings. PHYSICIAN RESPONSE What condition reflects above: 1 Please remember a lack of response to the above will prompt a phone page by CDI/Coding staff. In responding to this query, please exercise your independent professional judgment. The purpose of this communication is to more accurately reflect the complexity of your patients condition. The fact that a question is asked does not imply that any particular answer is desired or expected. Thank you for your timely response to this clarification. Requestors name: Ingrid THIS PHYSICIAN QUERY FORM IS A PERMANENT PART OF THE MEDICAL RECORD INGRID ALMAGUER April 16, 2020 08:44 WANDA ROBISON DO April 16, 2020 09:35
== END 2020-04-14 13:10 | disposition home health service (06) | DRG 560 ==
PROVIDERS: ADMIT Internal Medicine; ATTEND Internal Medicine
DX: Z47.1 Aftercare following joint replacement surgery (principal); Z96.651 Presence of right artificial knee joint; D62 Acute posthemorrhagic anemia; R09.02 Hypoxemia; K59.00 Constipation, unspecified; M19.91 Primary osteoarthritis, unspecified site; J40 Bronchitis, not specified as acute or chronic
CPT/HCPCS: 36415; 36600; 71045; 71046; 80053; 82805; 82962; 83540; 83605; 83880; 84145; 85025; 87040; 94640; 94760